=== PATIENT | female | born 1965 | race Caucasian/White ===

== ENCOUNTER → 2022-06-16 11:08 | Outpatient (BNVA) | payer SELFPAY | PROVIDERS: Visit Provider Nurse Practitioner | DX: R39.9 Unspecified symptoms and signs involving the genitourinary system (principal); N39.0 Urinary tract infection, site not specified | CPT/HCPCS: 81000 ==

== ENCOUNTER → 2022-08-02 09:09 | Outpatient (BNVA) | payer SELFPAY | PROVIDERS: Visit Provider Emergency Medicine | DX: R30.0 Dysuria (principal); K80.50 Calculus of bile duct without cholangitis or cholecystitis without obstruction; R31.9 Hematuria, unspecified | CPT/HCPCS: 80053; 81000; 85025; 87077; 87086; 87184 ==

== ENCOUNTER 2022-08-03 12:26 | Emergency (ER) | payer SELFPAY ==
[2022-08-03] VITALS (27 sets, daily range): BP systolic 122–150; BP diastolic 72–109; PULSE 79–97; RESP 16–18; TEMP 36.9–37.2; O2SAT 92–97
--- NOTE | 2022-08-03 13:14 | US_ITS ---
WS: [id number] Gallbladder and right upper quadrant ultrasound, 08/03/2022 Clinical Data: RUQ pain with nausea Comparison: None. Findings: The gallbladder shows a stone in the neck. The wall measures 0.4 cm with no pericholecystic fluid. A thickened wall could indicate chronic and/or acute cholecystitis. The common bile duct is 0.4 cm and there are no intrahepatic ductal abnormalities. Liver shows no cysts, masses or dilated intrahepatic ducts. The liver is enlarged, measuring 23.13 cm , with increased density and fatty infiltration. The pancreas is obscured by overlying bowel gas but no cyst, pseudocyst, or evidence of pancreatitis is noted. Right kidney measures 11.9 cm and no cyst, masses or hydronephrosis can be seen. The aorta and inferior vena cava show no vascular abnormalities. US/US gall bladder [id number] Impression: 1. Gallstone at the neck of the gallbladder. 2. Increased gallbladder wall which can be seen with chronic and acute cholecy stitis. 3. Liver enlargement with fatty infiltration and increased density.
[2022-08-03] MEDS: sodium chloride 0.9% 1,000 ML 999 ML IV (13:33)
[2022-08-03] MEDS: ondansetron 2 mg/ML SDV 2 mL 4 MG IVP (13:33)
[2022-08-03] MEDS: morphine 4 mg/mL SDV 1 mL IVP ×2 (13:33→20:48)
[2022-08-03 13:34] LABS: Glucose Point of Care 418 mg/dL (70-110)
--- NOTE | 2022-08-03 13:36 | ED_ITS ---
Documented by User: PRAKASH Carter 08/03/22 16:41 HPI - Recheck/Abnormal Lab/Rx General: Chief Complaint: Recheck/Abnormal Lab/Rx Stated Complaint: Gabbie sent for abnormal labs Time Seen by Provider: 08/03/22 12:34 History of Present Illness: Patient is a 57-year-old female who comes to the ED with abdominal pain. Patient was sent here by Dr. Cartwright due to elevated blood sugars and elevated total bilirubin. Symptoms started approximately 4 days ago. Her abdominal pain is located in her right upper quadrant of her abdomen and it radiates to the middle of her back. Pain currently is a 5 out of 10 but has occasions where it spikes up higher. She has nausea and a couple episodes of emesis over the past couple days. Patient has not eaten anything for the past couple days because she is worried it will worsen her symptoms. Patient denies any history of diabetes. She does have a past medical history of alpha gal. Review of Systems Const: Denies: fever(s), chills or fatigue Eyes: Denies: change in vision or eye discomfort ENMT: Denies: throat pain, odynophagia, nasal discharge or nasal congestion Card: Denies: chest pain, palpitations, edema, swelling of feet/ankles, dyspnea on exertion or orthopnea Resp: Denies: dyspnea, productive cough or non-productive cough GI: Reports: abdominal pain, nausea and vomiting; Denies: diarrhea, constipation or hematochezia : Denies: flank pain, dysuria or hematuria Musc: Denies: neck pain, back pain or extremity swelling Skin/Breast: Denies: rash or new lesions Neuro: Denies: headache(s), numbness in extremities or weakness in extremities PFSH ED PFSH: Medical History Allergy to alpha-gal No pertinent family history Surgical History No pertinent past surgical history Social History Smoking and tobacco status: current every day smoker Female Reproductive History: Spontaneous abortions: No Physical Exam Const: COMMON NORMALS: patient oriented x3 and alert GENERAL APPEARANCE: cooperative NUTRITIONAL APPEARANCE: obese HENMT: COMMON NORMALS: normocephalic HEAD & SCALP: normocephalic MOUTH: Normal oral and palatal mucosa present THROAT: posterior oropharynx normal and uvula midline Neck/C-Spine: COMMON NORMALS: supple GENERAL: Yes normal visual inspection Resp: COMMON NORMALS: normal respiratory effort, No retractions, No use of accessory muscles and clear to auscultation bilaterally AUSCULTATION: clear to auscultation bilaterally Cardio: COMMON NORMALS: regular rate, regular rhythm, S1 normal heart sound present, S2 normal heart sound present, No gallops present (Cardio), No clicks present (Cardio), No murmurs present (Cardio) and Peripheral pulses 2+ throughout RATE: regular rate RHYTHM: regular rhythm HEART SOUNDS: S1 normal heart sound present and S2 normal heart sound present PERIPHERAL PULSES: Peripheral pulses 2+ throughout GI: COMMON NORMALS: Normal to inspection, nondistended, normoactive bowel sounds present, Soft to palpation and no masses PALPATION: Yes Soft to palpation and Yes Tenderness to palpation present (GI) Details: RUQ (Positive Xavier sign) : COMMON NORMALS: Yes no CVA tenderness BLADDER/KIDNEY EXAM: Yes no CVA tenderness Back/Pelvis: COMMON NORMALS: no CVA tenderness Extremity: COMMON NORMALS: normal to inspection Neuro: COMMON NORMALS: patient oriented x3 SENSORIUM/ORIENTATION: Yes alert GAIT: Yes Normal gait present Skin: GENERAL SKIN EXAM: dry skin Course Consultations: Consultation #1: I contacted the general surgeon fire information officer and told about patient case. He recommended doing an MRCP of patient and if it comes back normal he would admit and take her to surgery, but if MRCP is abnormal we will have to transfer her. Time: 16:27 Vital Signs: Vital signs: Vital Signs Temperature 98.9 F 08/03/22 21:54 Pulse Rate 85 08/03/22 21:54 Respiratory Rate 18 08/03/22 21:54 Blood Pressure 140/94 08/03/22 21:54 Pulse Oximetry 94 08/03/22 21:54 Oxygen Delivery Me thod 08/03/22 13:55 MDM - Recheck/Abnormal Lab/Rx Medical Decision Making Patient is a 57-year-old female comes to the ED with right upper quadrant abdominal pain nausea and vomiting. She was seen by Dr. Cartwright yesterday for same complaint on August 02 and labs were performed and she had an elevated T bili and elevated blood sugars. She was instructed to come here to the ED for further evaluation. Symptoms started approximately 4 days ago and she has nausea and vomiting as well. Vitals are stable. Patient has a right upper quadrant abdominal tenderness with positive Xavier sign. Rest of exam is benign. White blood cell count of 22.1, T bili of 2 and her initial [id number] glucose test was 418. The rest of her labs were unremarkable. Ultrasound the gallbladder showed gallstone at the neck of the gallbladder with increased gallbladder wall indicating possible acute cholecystitis. I contacted the general surgeon fire information officer and told about patient case. He recommended doing an MRCP of patient. If MRCP came back normal he would admit patient and take her to surgery likely tomorrow. If MRCP came back abnormal she would need to be transferred. I talked with Dr. Culver about patient and he will be taking over patient care. MRCP is ordered and patient plan pending MRCP results Lab Data I reviewed the patient's lab results. : 08/03/22 14:35 08/03/22 14:35 Radiology Impressions Gallbladder Ultrasound 08/03/22 13:14 Impression: 1. Gallstone at the neck of the gallbladder. 2. Increased gallbladder wall which can be seen with chronic and acute cholecystitis. 3. Liver enlargement with fatty infiltration and increased density. Cholangiopancreatography MRI 08/03/22 16:26 IMPRESSION: 1. Cholelithiasis with gallbladder wall thickening which may reflect acute or chronic cholecystitis. There is a questionable stone in the distal common bile duct measuring 4 mm, although this may simply reflect findings related to coarse calcifications within the pancreatic head as described in the impression point below. There is no dilation of the common bile duct upstream to this region and therefore does not appear to be causing biliary obstruction. 2. There is a focal area of susceptibility artifact and T2 hypointense signal projecting in the region of the pancreatic head adjacent to the common bile duct measuring 1.7 cm in size. Imaging appearance is nonspecific on MRI and may reflect a coarse calcification. CT abdomen should provide further clarification of this region. 3. Hepatic steatosis. Laboratory Results WBC 22.1 10^3/uL (4.0-10.0) H 08/03/22 14:35 RBC 5.16 10^6/uL (4.1-5.3) 08/03/22 14:35 Hgb 15.4 g/dL (11.5-15.3) H 08/03/22 14:35 Hct 47.8 % (37.0-47.0) H 08/03/22 14:35 MCV 92.6 fl (81-99) 08/03/22 14:35 MCH 29.8 pg (28.0-34.0) 08/03/22 14:35 MCHC 32.2 g/dL (30.0-36.0) 08/03/22 14:35 RDW 14.7 % (12.1-15.1) 08/03/22 14:35 Plt Count 251 10^3/cmm (130-400) 08/03/22 14:35 MPV 9.6 fL (7.4-10.4) 08/03/22 14:35 Neut % (Auto) 74.8 % 08/03/22 14:35 Lymph % (Auto) 14.8 % 08/03/22 14:35 Stutsman % (Auto) 6.2 % 08/03/22 14:35 Eos % (Auto) 2.1 % 08/03/22 14:35 Baso % (Auto) 0.6 % 08/03/22 14:35 Neut # (Auto) 16.52 10^3/uL (1.8-7.7) H 08/03/22 14:35 Lymph # (Auto) 3.3 10^3/uL (0.8-4.8) 08/03/22 14:35 [place]uts[place] # (Auto) 1.4 10^3/uL (0.2-0.9) H 08/03/22 14:35 Eos # (Auto) 0.5 10^3/uL (0.0-0.8) 08/03/22 14:35 Baso # (Auto) 0.1 10^3/uL (0.0-0.1) 08/03/22 14:35 Nucleated RBC % (auto) 0 % 08/03/22 14:35 Nucleated RBCs # 0.0 /100WBC 08/03/22 14:35 Sodium 129 mmol/L (136-145) L 08/03/22 14:35 Potassium 4.1 mmol/L (3.5-5.1) 08/03/22 14:35 Chloride 92 mmol/L (98-107) L 08/03/22 14:35 Carbon Dioxide 26 mmol/L (22-29) 08/03/22 14:35 Anion Gap 15.1 (5-19) 08/03/22 14:35 BUN 10 mg/dL (6-20) 08/03/22 14:35 Creatinine 0.5 mg/dL (0.5-0.9) 08/03/22 14:35 GFR Calculation 127.6 mL/min (90-130) 08/03/22 14:35 Glucose 343 mg/dL (65-115) H 08/03/22 14:35 POC Glucose 346 mg/dL (70-110) H 08/03/22 15:42 Calculated Osmolality 281 mOsm/kg (285-295) L 08/03/22 14:35 Lactate 1.9 mmol/L (0.5-2.2) 08/03/22 14:35 Calcium 9.4 mg/dL (8.5-10.5) 08/03/22 14:35 Total Bilirubin 2.0 mg/dL (0.15-1.2) H 08/03/22 14:35 AST 14 U/L (0-32) 08/03/22 14:35 ALT 16 U/L (0-33) 08/03/22 14:35 Alkaline Phosphatase 118 U/L (35-105) H 08/03/22 14:35 Total Protein 7.7 g/dL (6.6-8.7) 08/03/22 14:35 Albumin 4.0 g/dL (3.5-5.2) 08/03/22 14:35 Globulin 3.7 g/dL (1.3-4.6) 08/03/22 14:35 Lipase 29 U/L (13-60) 08/03/22 14:35 Urine Color Red (Yellow) 08/03/22 17:30 Urine Appearance Bloody (CLEAR) A 08/03/22 17:30 Urine pH 5 (5-7) 08/03/22 17:30 Ur Specific Furlong 1.020 (1.005-1.030) 08/03/22 17:30 Urine Protein 1+ (Negative) H 08/03/22 17:30 Urine Glucose (UA) 2+ (Normal) H 08/03/22 17:30 Urine Ketones 1+ (Negative) H 08/03/22 17:30 Urine Blood 3+ (Negative) H 08/03/22 17:30 Urine Nitrate Positive (Negative) H 08/03/22 17:30 Urine Bilirubin 1+ (Negative) H 08/03/22 17:30 Urine Urobilinogen 4 mg/dL (Negative) H 08/03/22 17:30 Ur Leukocyte Esterase 1+ (Negative) H 08/03/22 17:30 Urine RBC 15-25 /hpf (0-2) H 08/03/22 17:30 Urine WBC 0-4 /hpf (0-5) H 08/03/22 17:30 Ur Squamous Epith Cells 0-4 /hpf (0-5) H 08/03/22 17:30 Amorphous Sediment Not Reportable 08/03/22 17:30 Urine Bacteria 4+ /hpf (NONE) H 08/03/22 17:30 Serum Ketones Negative (Negative) 08/03/22 14:35 Discharge Plan Discharge Patient Disposition: Xfer Short-Term Hosp Clinical Impression: Acute cholecystitis, Choledocholithiasis Condition: Stable Sign Out Sign Out Data: Patient Sign Out occurred on 08/03/22 at 16:41. Patient's care was discussed, and care was transferred from to Uli Culver MD. Coding Level of Care Code ED Core Laying Machine Operator for Chg Fwd Exam Comprehensive Documented by User: Uli Culver MD 08/08/22 19:57 HPI - Recheck/Abnormal Lab/Rx General: Chief Complaint: Recheck/Abnormal Lab/Rx Stated Complaint: Gerlick sent for abnormal labs Time Seen by Provider: 08/03/22 12:34 PFSH ED PFSH: Medical History Allergy to alpha-gal No pertinent family history Surgical History No pertinent past surgical history Social History Smoking and tobacco status: current every day smoker Course Vital Signs: Vital signs: Vital Signs Temperature 98.9 F 08/03/22 21:54 Pulse Rate 85 08/03/22 21:54 Respiratory Rate 18 08/03/22 21:54 Blood Pressure 140/94 08/03/22 21:54 Pulse Oximetry 94 08/03/22 21:54 Oxygen Delivery Me thod 08/03/22 13:55 MDM - Recheck/Abnormal Lab/Rx Medical Decision Making Patient is a 57-year-old female comes to the ED with right upper quadrant abdominal pain nausea and vomiting. She was seen by Dr. Cartwright yesterday for same complaint on August 02 and labs were performed and she had an elevated T bili and elevated blood sugars. She was instructed to come here to the ED for further evaluation. Symptoms started approximately 4 days ago and she has nausea and vomiting as well. Vitals are stable. Patient has a right upper quadrant abdominal tenderness with positive Xavier sign. Rest of exam is benign. White blood cell count of 22.1, T bili of 2 and her initial [id number] glucose test was 418. The rest of her labs were unremarkable. Ultrasound the gallbladder showed gallstone at the neck of the gallbladder with increased gallbladder wall indicating possible acute cholecystitis. I contacted the general surgeon fire information officer and told about patient case. He recommended doing an MRCP of patient. If MRCP came back normal he would admit patient and take her to surgery likely tomorrow. If MRCP came back abnormal she would need to be transferred. I talked with Dr. Culver about patient and he will be taking over patient care. MRCP is ordered and patient plan pending MRCP results I discussed this case with Sander RANDALL. I reviewed documentation. I have reviewed imaging and laboratory studies. I personally saw and evaluated the patient and reperformed godfrey portions of E/M. Given MRCP findings patient reports transferred for ERCP at our facility. Discussed this with the patient and patient agreeable to transfer. Accepting facility found the patient transferred to a satisfactory condition. Uli Culver MD Emergency Medicine Lab Data : 08/03/22 14:35 08/03/22 14:35 Radiology Impressions Gallbladder Ultrasound 08/03/22 13:14 Impression: 1. Gallstone at the neck of the gallbladder. 2. Increased gallbladder wall which can be seen with chronic and acute cholecystitis. 3. Liver enlargement with fatty infiltration and increased density. Cholangiopancreatography MRI 08/03/22 16:26 IMPRESSION: 1. Cholelithiasis with gallbladder wall thickening which may reflect acute or chronic cholecystitis. There is a questionable stone in the distal common bile duct measuring 4 mm, although this may simply reflect findings related to coarse calcifications within the pancreatic head as described in the impression point below. There is no dilation of the common bile duct upstream to this region and therefore does not appear to be causing biliary obstruction. 2. There is a focal area of susceptibility artifact and T2 hypointense signal projecting in the region of the pancreatic head adjacent to the common bile duct measuring 1.7 cm in size. Imaging appearance is nonspecific on MRI and may reflect a coarse calcification. CT abdomen should provide further clarification of this region. 3. Hepatic steatosis. Laboratory Results WBC 22.1 10^3/uL (4.0-10.0) H 08/03/22 14:35 RBC 5.16 10^6/uL (4.1-5.3) 08/03/22 14:35 Hgb 15.4 g/dL (11.5-15.3) H 08/03/22 14:35 Hct 47.8 % (37.0-47.0) H 08/03/22 14:35 MCV 92.6 fl (81-99) 08/03/22 14:35 MCH 29.8 pg (28.0-34.0) 08/03/22 14:35 MCHC 32.2 g/dL (30.0-36.0) 08/03/22 14:35 RDW 14.7 % (12.1-15.1) 08/03/22 14:35 Plt Count 251 10^3/cmm (130-400) 08/03/22 14:35 MPV 9.6 fL (7.4-10.4) 08/03/22 14:35 Neut % (Auto) 74.8 % 08/03/22 14:35 Lymph % (Auto) 14.8 % 08/03/22 14:35 Stutsman % (Auto) 6.2 % 08/03/22 14:35 Eos % (Auto) 2.1 % 08/03/22 14:35 Baso % (Auto) 0.6 % 08/03/22 14:35 Neut # (Auto) 16.52 10^3/uL (1.8-7.7) H 08/03/22 14:35 Lymph # (Auto) 3.3 10^3/uL (0.8-4.8) 08/03/22 14:35 [place]utsman # (Auto) 1.4 10^3/uL (0.2-0.9) H 08/03/22 14:35 Eos # (Auto) 0.5 10^3/uL (0.0-0.8) 08/03/22 14:35 Baso # (Auto) 0.1 10^3/uL (0.0-0.1) 08/03/22 14:35 Nucleated RBC % (auto) 0 % 08/03/22 14:35 Nucleated RBCs # 0.0 /100WBC 08/03/22 14:35 Sodium 129 mmol/L (136-145) L 08/03/22 14:35 Potassium 4.1 mmol/L (3.5-5.1) 08/03/22 14:35 Chloride 92 mmol/L (98-107) L 08/03/22 14:35 Carbon Dioxide 26 mmol/L (22-29) 08/03/22 14:35 Anion Gap 15.1 (5-19) 08/03/22 14:35 BUN 10 mg/dL (6-20) 08/03/22 14:35 Creatinine 0.5 mg/dL (0.5-0.9) 08/03/22 14:35 GFR Calculation 127.6 mL/min (90-130) 08/03/22 14:35 Glucose 343 mg/dL (65-115) H 08/03/22 14:35 POC Glucose 346 mg/dL (70-110) H 08/03/22 15:42 Calculated Osmolality 281 mOsm/kg (285-295) L 08/03/22 14:35 Lactate 1.9 mmol/L (0.5-2.2) 08/03/22 14:35 Calcium 9.4 mg/dL (8.5-10.5) 08/03/22 14:35 Total Bilirubin 2.0 mg/dL (0.15-1.2) H 08/03/22 14:35 AST 14 U/L (0-32) 08/03/22 14:35 ALT 16 U/L (0-33) 08/03/22 14:35 Alkaline Phosphatase 118 U/L (35-105) H 08/03/22 14:35 Total Protein 7.7 g/dL (6.6-8.7) 08/03/22 14:35 Albumin 4.0 g/dL (3.5-5.2) 08/03/22 14:35 Globulin 3.7 g/dL (1.3-4.6) 08/03/22 14:35 Lipase 29 U/L (13-60) 08/03/22 14:35 Urine Color Red (Yellow) 08/03/22 17:30 Urine Appearance Bloody (CLEAR) A 08/03/22 17:30 Urine pH 5 (5-7) 08/03/22 17:30 Ur Specific Furlong 1.020 (1.005-1.030) 08/03/22 17:30 Urine Protein 1+ (Negative) H 08/03/22 17:30 Urine Glucose (UA) 2+ (Normal) H 08/03/22 17:30 Urine Ketones 1+ (Negative) H 08/03/22 17:30 Urine Blood 3+ (Negative) H 08/03/22 17:30 Urine Nitrate Positive (Negative) H 08/03/22 17:30 Urine Bilirubin 1+ (Negative) H 08/03/22 17:30 Urine Urobilinogen 4 mg/dL (Negative) H 08/03/22 17:30 Ur Leukocyte Esterase 1+ (Negative) H 08/03/22 17:30 Urine RBC 15-25 /hpf (0-2) H 08/03/22 17:30 Urine WBC 0-4 /hpf (0-5) H 08/03/22 17:30 Ur Squamous Epith Cells 0-4 /hpf (0-5) H 08/03/22 17:30 Amorphous Sediment Not Reportable 08/03/22 17:30 Urine Bacteria 4+ /hpf (NONE) H 08/03/22 17:30 Serum Ketones Negative (Negative) 08/03/22 14:35 Discharge Plan Discharge Patient Disposition: Xfer Short-Term Hosp Clinical Impression: Acute cholecystitis, Choledocholithiasis Condition: Stable Sign Out Sign Out Data: Patient Sign Out occurred on 08/03/22 at 16:41. Patient's care was discussed, and care was transferred from to Uli Culver MD. Coding Level of Care Code ED Core Laying Machine Operator for g Fwd Exam Comprehensive
[2022-08-03 14:41] LABS: Basophils # 0.1 10^3/uL (0.0-0.1); Basophils % 0.6 %; Eosinophils # 0.5 10^3/uL (0.0-0.8); Eosinophils % 2.1 %; Hematocrit 47.8 % (37.0-47.0); Hemoglobin 15.4 g/dL (11.5-15.3); Lymphocytes # 3.3 10^3/uL (0.8-4.8); Lymphocytes % 14.8 %; Mean Corpuscular HGB Conc 32.2 g/dL (30.0-36.0); Mean Corpuscular Hemoglobin 29.8 pg (28.0-34.0); Mean Corpuscular Volume 92.6 fl (81-99); Mean Platelet Volume 9.6 fL (7.4-10.4); Monocytes # 1.4 10^3/uL (0.2-0.9); Monocytes % 6.2 %; Neutrophils # 16.52 10^3/uL (1.8-7.7); Neutrophils % 74.8 %; Nucleated Red Blood Cells % 0 %; Platelet Count 251 10^3/cmm (130-400); Red Blood Count 5.16 10^6/uL (4.1-5.3); Red Cell Distribution Width 14.7 % (12.1-15.1); White Blood Count 22.1 10^3/uL (4.0-10.0)
[2022-08-03 14:57] LABS: Anion Gap 15.1 (5-19); Blood Urea Nitrogen 10 mg/dL (6-20); Calcium 9.4 mg/dL (8.5-10.5); Carbon Dioxide 26 mmol/L (22-29); Chloride 92 mmol/L (98-107); Glomerular Filtration Rate 127.6 mL/min (90-130); Lipase 29 U/L (13-60); Potassium 4.1 mmol/L (3.5-5.1); Sodium 129 mmol/L (136-145); Total Protein 7.7 g/dL (6.6-8.7)
[2022-08-03 15:00] LABS: Ketone (Acetest) Serum Negative (Negative)
[2022-08-03 15:28] LABS: Alanine Aminotransferase 16 U/L (0-33); Alkaline Phosphatase 118 U/L (35-105); Aspartate Amino Transferase 14 U/L (0-32); Globulin 3.7 g/dL (1.3-4.6); Glucose 343 mg/dL (65-115); Osmolality Calculated 281 mOsm/kg (285-295)
[2022-08-03 15:45] LABS: Glucose Point of Care 346 mg/dL (70-110)
[2022-08-03] MEDS: insulin regular-human 100 units/1 mL 6 UNIT IVP (16:06)
--- NOTE | 2022-08-03 16:26 | MRR_ITS ---
PROCEDURE INFORMATION: Exam: MR Abdomen Without Contrast Exam date and time: 08/03/2022 4:57 PM Age: 57 years old Clinical indication: Abdominal pain; Acute; Patient HX: RT flank pain nausea vomiting since Tuesday; Additional info: Ruq abdominal pain with elevated t. Moody TECHNIQUE: Imaging protocol: Magnetic resonance imaging of the abdomen without contrast. COMPARISON: US gall bladder [id number] 08/03/2022 1:34 PM FINDINGS: Liver: Diffuse hepatic steatosis. No mass. Gallbladder and bile ducts: 2.5 cm gallstone noted at the gallbladder neck. Gallbladder wall thickening noted. No dilation of the common bile duct. There is a small focal areas susceptibility artifact measuring 4 mm in size in the region of the common bile duct just proximal to the ampulla of Vater series 701, image 22. Pancreas: There is a focal area of susceptibility artifact and markedly decreased T2 hypointense signal projecting at the pancreatic head adjacent to the common bile duct measuring 1.7 cm in size. Imaging appearance is nonspecific on MRI and may reflect a coarse calcification. No ductal dilation. Spleen: Unremarkable. No splenomegaly. Adrenal glands: Unremarkable. No mass. Kidneys and ureters: Unremarkable. No solid mass. No hydronephrosis. Stomach and bowel: Visualized stomach and intestines are unremarkable. Intraperitoneal space: No free fluid. Vasculature: No abdominal aortic aneurysm. Bones/joints: Unremarkable. Soft tissues: Unremarkable. MR/MR MRCP [id number] IMPRESSION: 1. Cholelithiasis with gallbladder wall thickening which may reflect acute or chronic cholecystitis. There is a questionable stone in the distal common bile duct measuring 4 mm, although this may simply reflect findings related to coarse calcifications within the pancreatic head as described in the impression point below. There is no dilation of the common bile duct upstream to this region and therefore does not appear to be causing biliary obstruction. 2. There is a focal area of susceptibility artifact and T2 hypointense signal projecting in the region of the pancreatic head adjacent to the common bile duct measuring 1.7 cm in size. Imaging appearance is nonspecific on MRI and may reflect a coarse calcification. CT abdomen should provide further clarification of this region. 3. Hepatic steatosis.
[2022-08-03 18:22] LABS: Lactate (Lactic Acid level) 1.9 mmol/L (0.5-2.2)
[2022-08-03] MEDS: piperacillin-tazobactam 4.5 GM in sodium chloride 0.9% (plus) 50 ML IV (18:34)
[2022-08-03 18:54] LABS: Urine Appearance Bloody (CLEAR); Urine Color Red (Yellow); pH Urine 5 (5-7)
[2022-08-03 18:55] LABS: Add Urine Microscopic? YES; Bilirubin Urine 1+ (Negative); Blood Urine 3+ (Negative); Glucose Urine UA 2+ (Normal); Ketones Urine 1+ (Negative); Leukocyte Esterase Urine 1+ (Negative); Nitrate Urine Positive (Negative); Protein Urine 1+ (Negative); Urobilinogen Urine 4 mg/dL (Negative)
[2022-08-03 18:56] LABS: Add Urine Culture? Yes; Bacteria Urine 4+ /hpf; RBC Urine 15-25 /hpf (0-2); Squamous Epithelial Cell Urine 0-4 /hpf (0-5); WBC Urine 0-4 /hpf (0-5)
== END 2022-08-03 21:50 | disposition short-term general hospital (02) ==
PROVIDERS: Physician Assistant; Emergency Provider Emergency Medicine
DX: K80.42 Calculus of bile duct with acute cholecystitis without obstruction (principal); R79.89 Other specified abnormal findings of blood chemistry; R73.9 Hyperglycemia, unspecified; R11.2 Nausea with vomiting, unspecified
CPT/HCPCS: 36415; 36416; 74181; 76705; 80053; 81001; 82009; 82962; 83605; 83690; 85025; 87086; 96365; 96375; 99285; J1815; J2270; J2405; J2543; J7030

== ENCOUNTER 2022-08-13 19:31 | Emergency (ER) | payer SELFPAY ==
[2022-08-13 19:50] VITALS: BP 150/82; PULSE 99; RESP 22; TEMP 37; O2SAT 97; BMI 49.9
[2022-08-13 22:38] LABS: Hematocrit 43.7 % (37.0-47.0); Hemoglobin 13.8 g/dL (11.5-15.3); Mean Corpuscular HGB Conc 31.6 g/dL (30.0-36.0); Mean Corpuscular Hemoglobin 29.2 pg (28.0-34.0); Mean Corpuscular Volume 92.6 fl (81-99); Mean Platelet Volume 9.9 fL (7.4-10.4); Platelet Count 558 10^3/cmm (130-400); Red Blood Count 4.72 10^6/uL (4.1-5.3); Red Cell Distribution Width 14.8 % (12.1-15.1); White Blood Count 28.9 10^3/uL (4.0-10.0)
[2022-08-13 23:09] LABS: Alanine Aminotransferase 13 U/L (0-33); Albumin Level 2.5 g/dL (3.5-5.2); Alkaline Phosphatase 324 U/L (35-105); Anion Gap 17.9 (5-19); Aspartate Amino Transferase 16 U/L (0-32); Blood Urea Nitrogen 15 mg/dL (6-20); Calcium 9.3 mg/dL (8.5-10.5); Carbon Dioxide 23 mmol/L (22-29); Chloride 95 mmol/L (98-107); Globulin 4.4 g/dL (1.3-4.6); Glomerular Filtration Rate 230.1 mL/min (90-130); Glucose 178 mg/dL (65-115); NT Pro B Type Natriuretic Pept 147 pg/mL (0-125); Osmolality Calculated 277 mOsm/kg (285-295); Potassium 4.9 mmol/L (3.5-5.1); Sodium 131 mmol/L (136-145); Total Bilirubin 1.1 mg/dL (0.15-1.2); Total Protein 6.9 g/dL (6.6-8.7)
[2022-08-13 23:44] LABS: Absolute Neutrophil 26.3 10^3/cmm (1.4-6.5); Absolute Segmented Neutrophil 23.1 10/cmm (1.6-7.1); Band Neutrophils Absolute 3.2 10^3/cmm (0.0-1.2); Eosinophils 0 %; Lymphocytes 2 %; Lymphocytes Absolute 0.6 10^3/cmm (1.2-3.4); Monocytes Absolute 0.9 10^3/cmm (0.1-0.6); Platelet Estimate Increased (Normal); Segmented Neutrophils 80 %; Total Cells Counted 100 (0-100)
[2022-08-13 23:45] LABS: Toxic Granulation 1+; Toxic Vacuolation 1+
--- NOTE | 2022-08-14 00:14 | CTR_ITS ---
PROCEDURE INFORMATION: Exam: CT Abdomen And Pelvis Without Contrast Exam date and time: 08/14/2022 1:53 AM Age: 57 years old Clinical indication: Abdominal pain; Generalized; Prior surgery; Surgery date: <1 month; Surgery type: Severe abd pain since cholecystectomy 9 days ago; Additional info: Generalized abdominal pain, 9 days post cholecystectomy TECHNIQUE: Imaging protocol: Computed tomography of the abdomen and pelvis without contrast. Radiation optimization: All CT scans at this facility use at least one of these dose optimization techniques: automated exposure control; mA and/or kV adjustment per patient size (includes targeted exams where dose is matched to clinical indication); or iterative reconstruction. COMPARISON: MR MRCP [id number] 08/03/2022 4:57 PM RADIATION DOSE METRICS: Total DLP (mGy-cm): 1216.06 FINDINGS: Liver: Circumscribed low-attenuation simple appearing fluid collection medial to the caudate lobe of the liver measures 7.1 cm x 4.6 cm new from prior. Gallbladder and bile ducts: Cholecystectomy. Negative for biliary system dilation. Circumscribed fluid collection in the gallbladder fossa with transaxial dimensions 6.5 cm x 5.1 cm. Pancreas: Unremarkable pancreas. Spleen: Normal. No splenomegaly. Adrenal glands: Symmetric adrenal glands. Kidneys and ureters: Large stone in the left renal pelvis. Negative for hydroureteronephrosis. Stomach and bowel: Plastic stent in the mid through distal common bile duct extending into the duodenum. Multiple circumscribed simple appearing perigastric fluid collections causing some mass effect on the stomach. Negative for bowel obstruction. Negative for bowel perforation. Appendix: No evidence of appendicitis. Intraperitoneal space: Small subhepatic fluid collection in the proximal right pericolic gutter area. Multiple circumscribed loculated appearing simple fluid collections in the left upper quadrant of the abdomen. Multiple individual collections are seen. Largest collection lateral to the spleen extending anterior to posterior measuring 16.7 cm x 4.4 cm. Diffuse edema throughout abdominal mesentery. Circumscribed simple appearing fluid collections along the anterior aspect of the intraperitoneal cavity. Negative for pneumoperitoneum. Vasculature: Diffuse abdominal aorta atherosclerosis without aneurysm. Lymph nodes: Unremarkable. No enlarged lymph nodes. Urinary bladder: Bladder is decompressed. Reproductive: Unremarkable as visualized. Bones/joints: Grade 2 L5-S1 spondylolisthesis. L5 pars defects. No fractures. Soft tissues: Mild body wall anasarca. CT/CT abdomen pelvis wo con [id number] IMPRESSION: Numerous loculated well-circumscribed postoperative fluid collections throughout the abdomen with predominantly simple fluid features which are nonspecific. These could represent multiple bilomas.
--- NOTE | 2022-08-14 00:16 | ED_ITS ---
Documented by User: PRAKASH Carter 08/14/22 14:56 HPI - Abdominal Pain General: Chief Complaint: Abdominal Pain Stated Complaint: SOB, alot of pain Time Seen by Provider: 08/13/22 23:20 History of Present Illness: Patient is a 57-year-old female comes to the ED with abdominal pain. Patient was seen here in the ED back on August 03 and was transferred to another hospital for acute cholecystitis and Choledocholithiasis. Patient had a cholecystectomy procedure performed on August 05. She was discharged from the hospital and has continued to have abdominal pain and has not been improving since surgery. She currently rates her abdominal pain a 7 out of 10. Pain is generalized throughout the abdomen. Pain worsens with any movement or if she lays flat. She feels bloated and has decreased appetite. Denies any episodes of emesis. When she was discharged home from the hospital she was supposed to be on an antibiotic but due to having alpha gal the antibiotic she was given she was unable to take. She has not been taking any antibiotics since surgery. Associated Symptoms: Reports nausea; Denies chills, constipation, diarrhea, dysuria, fever(s), hematochezia, hematuria and vomiting Review of Systems Const: Reports: change in appetite (Decreased appetite since surgery) and fatigue; Denies: fever(s) or chills Eyes: Denies: change in vision or eye discomfort ENMT: Denies: throat pain, odynophagia, nasal discharge or nasal congestion Card: Denies: chest pain, palpitations, edema, swelling of feet/ankles, dyspnea on exertion or orthopnea Resp: Denies: dyspnea, productive cough or non-productive cough GI: Reports: abdominal pain and nausea; Denies: vomiting, diarrhea, constipation or hematochezia : Denies: flank pain, dysuria or hematuria Musc: Denies: neck pain, back pain or extremity swelling Skin/Breast: Denies: rash or new lesions Neuro: Denies: headache(s), numbness in extremities or weakness in extremities PFS ED PFSH: Medical History Allergy to alpha-gal No pertinent family history Surgical History No pertinent past surgical history Social History Smoking and tobacco status: current every day smoker Female Reproductive History: Spontaneous abortions: No Physical Exam Const: COMMON NORMALS: patient oriented x3 and alert GENERAL APPEARANCE: cooperative OTHER: Patient appears to be uncomfortable and in some pain. HENMT: COMMON NORMALS: normocephalic HEAD & SCALP: normocephalic MOUTH: Normal oral and palatal mucosa present THROAT: posterior oropharynx normal and uvula midline Neck/C-Spine: COMMON NORMALS: supple GENERAL: Yes normal visual inspection Resp: COMMON NORMALS: normal respiratory effort, No retractions, No use of accessory muscles and clear to auscultation bilaterally AUSCULTATION: clear to auscultation bilaterally Cardio: COMMON NORMALS: regular rate, regular rhythm, S1 normal heart sound present, S2 normal heart sound present, No gallops present (Cardio), No clicks present (Cardio), No murmurs present (Cardio) and Peripheral pulses 2+ throughout RATE: regular rate RHYTHM: regular rhythm HEART SOUNDS: S1 normal heart sound present and S2 normal heart sound present PERIPHERAL PULSES: Peripheral pulses 2+ throughout GI: COMMON NORMALS: Normal to inspection, nondistended, normoactive bowel sounds present, Soft to palpation and no masses INSPECTION: Yes central obesity PALPATION: Yes Soft to palpation and Yes Tenderness to palpation present (GI) (Tenderness with light palpation throughout abdomen) : COMMON NORMALS: Yes no CVA tenderness BLADDER/KIDNEY EXAM: Yes no CVA tenderness Back/Pelvis: COMMON NORMALS: no CVA tenderness Extremity: COMMON NORMALS: normal to inspection Neuro: COMMON NORMALS: patient oriented x3 SENSORIUM/ORIENTATION: Yes alert GAIT: Yes Normal gait present Skin: GENERAL SKIN EXAM: dry skin Course Vital Signs: Vital signs: Vital Signs Temperature 98.2 F 08/14/22 05:46 Pulse Rate 102 H 08/14/22 05:46 Respiratory Rate 22 H 08/14/22 05:46 Blood Pressure 146/104 08/14/22 05:46 Pulse Oximetry 96 08/14/22 05:46 Oxygen Delivery Me thod 08/13/22 19:50 MDM - Abdominal Pain Medical Decision Making Patient is a 57-year-old female comes to the ED with abdominal pain. Patient was seen here in the ED back on August 03 and was transferred to [facility] for acute cholecystitis and Choledocholithiasis. Patient had a cholecystectomy procedure performed on August 05. Since discharge from the hospital she has been having worsening abdominal pain. Vitals are stable and patient does appear to be in some pain. She has generalized tenderness throughout her abdomen to light palpation. White blood cell count 28.9 lactic acid 1.3, alk phos 324 and the rest of the labs are unremarkable. CT of the abdomen showed numerous loculated well-circumscribed postoperative fluid collect ions throughout the abdomen, which could represent multiple bilomas. We contacted the [facility] and the surgeon who performed previous surgery. Patient will be transferred to [facility] for readmission. Patient was given IV Zosyn here in the ED before transfer. Lab Data I reviewed the patient's lab results. 08/13/22 22:15 08/13/22 22:15 Labs/Radiology: Radiology Impressions Abdomen/Pelvis CT 08/14/22 00:14 IMPRESSION: Numerous loculated well-circumscribed postoperative fluid collections throughout the abdomen with predominantly simple fluid features which are nonspecific. These could represent multiple bilomas. Laboratory Results WBC 28.9 10^3/uL (4.0-10.0) H 08/13/22 22:15 RBC 4.72 10^6/uL (4.1-5.3) 08/13/22 22:15 Hgb 13.8 g/dL (11.5-15.3) 08/13/22 22:15 Hct 43.7 % (37.0-47.0) 08/13/22 22:15 MCV 92.6 fl (81-99) 08/13/22 22:15 MCH 29.2 pg (28.0-34.0) 08/13/22 22:15 MCHC 31.6 g/dL (30.0-36.0) 08/13/22 22:15 RDW 14.8 % (12.1-15.1) 08/13/22 22:15 Plt Count 558 10^3/cmm (130-400) H 08/13/22 22:15 MPV 9.9 fL (7.4-10.4) 08/13/22 22:15 Lymph % (Auto) Not Reportable 08/13/22 22:15 Barrow % (Auto) Not Reportable 08/13/22 22:15 Lymph # (Auto) Not Reportable 08/13/22 22:15 B[place] # (Auto) Not Reportable 08/13/22 22:15 Total Counted 100 (0-100) 08/13/22 22:15 Atypical Lymphs % 0.0 % (0-5) 08/13/22 22:15 Absolute Neutrophils 26.3 10^3/cmm (1.4-6.5) H 08/13/22 22:15 Segmented Neutrophils 80 % 08/13/22 22:15 Abs Segm Neuts (Man) 23.1 10/cmm (1.6-7.1) H 08/13/22 22:15 Band Neutrophils 11.0 % 08/13/22 22:15 Abs Band Neuts (Man) 3.2 10^3/cmm (0.0-1.2) H 08/13/22 22:15 Absolute Lymphocytes 0.6 10^3/cmm (1.2-3.4) L 08/13/22 22:15 Lymphocytes (Manual) 2 % 08/13/22 22:15 Monocytes (Manual) 3.0 % 08/13/22 22:15 Absolute Monocytes 0.9 10^3/cmm (0.1-0.6) H 08/13/22 22:15 Eosinophils (Manual) 0 % 08/13/22:15 Absolute Eosinophils 0.0 10^3/cmm (0.0-0.7) 08/13/22 22:15 Basophils (Manual) 0.0 % 08/13/22:15 Absolute Basophils 0.0 10^3/cmm (0.0-0.2) 08/13/22 22:15 Metamyelocytes 3.0 % 08/13/22 22:15 Myelocytes 1.0 % 08/13/22 22:15 Toxic Granulation 1+ H 08/13/22 22:15 Toxic Vacuolation 1+ H 08/13/22 22:15 Platelet Estimate Increased (Normal) H 08/13/22 22:15 Sodium 131 mmol/L (136-145) L 08/13/22 22:15 Potassium 4.9 mmol/L (3.5-5.1) 08/13/22 22:15 Chloride 95 mmol/L (98-107) L 08/13/22 22:15 Carbon Dioxide 23 mmol/L (22-29) 08/13/22 22:15 Anion Gap 17.9 (5-19) 08/13/22 22:15 BUN 15 mg/dL (6-20) 08/13/22 22:15 Creatinine 0.3 mg/dL (0.5-0.9) L 08/13/22 22:15 GFR Calculation 230.1 mL/min (90-130) H 08/13/22 22:15 Glucose 178 mg/dL (65-115) H 08/13/22 22:15 Calculated Osmolality 277 mOsm/kg (285-295) L 08/13/22 22:15 Lactic Acid 1.3 mmol/L (0.5-2.2) 08/13/22 22:10 Calcium 9.3 mg/dL (8.5-10.5) 08/13/22 22:15 Total Bilirubin 1.1 mg/dL (0.15-1.2) 08/13/22 22:15 AST 16 U/L (0-32) 08/13/22 22:15 ALT 13 U/L (0-33) 08/13/22 22:15 Alkaline Phosphatase 324 U/L (35-105) H 08/13/22 22:15 NT-Pro-B Natriuret Pep 147 pg/mL (0-125) H 08/13/22 22:15 Total Protein 6.9 g/dL (6.6-8.7) 08/13/22 22:15 Albumin 2.5 g/dL (3.5-5.2) L 08/13/22 22:15 Globulin 4.4 g/dL (1.3-4.6) 08/13/22 22:15 Urine Color Dark yellow (Yellow) 08/14/22 01:38 Urine Appearance Hazy (CLEAR) A 08/14/22 01:38 Urine pH 5 (5-7) 08/14/22 01:38 Ur Specific Randolph 1.020 (1.005-1.030) 08/14/22 01:38 Urine Protein 1+ (Negative) H 08/14/22 01:38 Urine Glucose (UA) Norm (Normal) 08/14/22 01:38 Urine Ketones 1+ (Negative) H 08/14/22 01:38 Urine Blood 3+ (Negative) H 08/14/22 01:38 Urine Nitrate Negative (Negative) 08/14/22 01:38 Urine Bilirubin 2+ (Negative) H 08/14/22 01:38 Urine Urobilinogen 1 mg/dL (Negative) H 08/14/22 01:38 Ur Leukocyte Esterase Negative (Negative) 08/14/22 01:38 Urine RBC 15-25 /hpf (0-2) H 08/14/22 01:38 Urine WBC None /hpf (0-5) 08/14/22 01:38 Ur Squamous Epith Cells 0-4 /hpf (0-5) H 08/14/22 01:38 Amorphous Sediment Not Reportable 08/14/22 01:38 Urine Bacteria Trace /hpf (NONE) 08/14/22 01:38 Urine Mucus 3+ /hpf 08/14/22 01:38 Discharge Plan Discharge Patient Disposition: Left Against Medical Advice Clinical Impression: Biloma following surgery, Post surgical complication Condition: Stable Prescriptions: No Action No Known Home Medications Coding Level of Care Code ED Helmet Hat Brim Cutter for Chg Fwd Exam Comprehensive Documented by User: Anibal Carlos DO 08/14/22 16:20 HPI - Abdominal Pain General: Chief Complaint: Abdominal Pain Stated Complaint: SOB, alot of pain Time Seen by Provider: 08/13/22 23:20 PFSH ED PFSH: Medical History Allergy to alpha-gal No pertinent family history Surgical History No pertinent past surgical history Social History Smoking and tobacco status: current every day smoker Course Vital Signs: Vital signs: Vital Signs Temperature 98.2 F 08/14/22 05:46 Pulse Rate 102 H 08/14/22 05:46 Respiratory Rate 22 H 08/14/22 05:46 Blood Pressure 146/104 08/14/22 05:46 Pulse Oximetry 96 08/14/22 05:46 Oxygen Delivery Me thod 08/13/22 19:50 MDM - Abdominal Pain Medical Decision Making Patient is a 57-year-old female comes to the ED with abdominal pain. Patient was seen here in the ED back on August 03 and was transferred to [facility] for acute cholecystitis and Choledocholithiasis. Patient had a cho lecystectomy procedure performed on August 05. Since discharge from the hospital she has been having worsening abdominal pain. Vitals are stable and patient does appear to be in some pain. She has generalized tenderness throughout her abdomen to light palpation. White blood cell count 28.9 lactic acid 1.3, alk phos 324 and the rest of the labs are unremarkable. CT of the abdomen showed numerous loculated well-circumscribed postoperative fluid collections throughout the abdomen, which could represent multiple bilomas. We contacted the [facility] and the surgeon who performed previous surgery. Patient will be transferred to [facility] for readmission. Patient was given IV Zosyn here in the ED before transfer. This patient was originally seen by Mr. Ousmane PA-C. I agree with his history, evaluation, and management. I spoke with the surgeon electronic prepress operator, Dr. Jones. He has graciously accepted the patient to be transferred for direct admission there. Need for EMS transfer with high risk of clinical decompensation in this patient was explained to her. She Adamantly declined EMS transport, checked out of the ER AMA and was gonig to go by POV. Report was called to the facility by nursing staff as if the patient was being transported by EMS for continuity of care, and the bed will be there waiting on the patient on her arrival. Lab Data 08/13/22 22:15 08/13/22 22:15 Labs/Radiology: Radiology Impressions Abdomen/Pelvis CT 08/14/22 00:14 IMPRESSION: Numerous loculated well-circumscribed postoperative fluid collections throughout the abdomen with predominantly simple fluid features which are nonspecific. These could represent multiple bilomas. Laboratory Results WBC 28.9 10^3/uL (4.0-10.0) H 08/13/22 22:15 RBC 4.72 10^6/uL (4.1-5.3) 08/13/22 22:15 Hgb 13.8 g/dL (11.5-15.3) 08/13/22 22:15 Hct 43.7 % (37.0-47.0) 08/13/22 22:15 MCV 92.6 fl (81-99) 08/13/22 22:15 MCH 29.2 pg (28.0-34.0) 08/13/22 22:15 MCHC 31.6 g/dL (30.0-36.0) 08/13/22 22:15 RDW 14.8 % (12.1-15.1) 08/13/22 22:15 Plt Count 558 10^3/cmm (130-400) H 08/13/22 22:15 MPV 9.9 fL (7.4-10.4) 08/13/22 22:15 Lymph % (Auto) Not Reportable 08/13/22 22:15 Barrow % (Auto) Not Reportable 08/13/22 22:15 Lymph # (Auto) Not Reportable 08/13/22 22:15 [place] # (Auto) Not Reportable 08/13/22 22:15 Total Counted 100 (0-100) 08/13/22 22:15 Atypical Lymphs % 0.0 % (0-5) 08/13/22 22:15 Absolute Neutrophils 26.3 10^3/cmm (1.4-6.5) H 08/13/22 22:15 Segmented Neutrophils 80 % 08/13/22 22:15 Abs Segm Neuts (Man) 23.1 10/cmm (1.6-7.1) H 08/13/22 22:15 Band Neutrophils 11.0 % 08/13/22 22:15 Abs Band Neuts (Man) 3.2 10^3/cmm (0.0-1.2) H 08/13/22 22:15 Absolute Lymphocytes 0.6 10^3/cmm (1.2-3.4) L 08/13/22 22:15 Lymphocytes (Manual) 2 % 08/13/22 22:15 Monocytes (Manual) 3.0 % 08/13/22 22:15 Absolute Monocytes 0.9 10^3/cmm (0.1-0.6) H 08/13/22 22:15 Eosinophils (Manual) 0 % 08/13/22 22:15 Absolute Eosinophils 0.0 10^3/cmm (0.0-0.7) 08/13/22 22:15 Basophils (Manual) 0.0 % 08/13/22 22:15 Absolute Basophils 0.0 10^3/cmm (0.0-0.2) 08/13/22 22:15 Metamyelocytes 3.0 % 08/13/22 22:15 Myelocytes 1.0 % 08/13/22 22:15 Toxic Granulation 1+ H 08/13/22 22:15 Toxic Vacuolation 1+ H 08/13/22 22:15 Platelet Estimate Increased (Normal) H 08/13/22 22:15 Sodium 131 mmol/L (136-145) L 08/13/22 22:15 Potassium 4.9 mmol/L (3.5-5.1) 08/13/22 22:15 Chloride 95 mmol/L (98-107) L 08/13/22 22:15 Carbon Dioxide 23 mmol/L (22-29) 08/13/22 22:15 Anion Gap 17.9 (5-19) 08/13/22 22:15 BUN 15 mg/dL (6-20) 08/13/22 22:15 Creatinine 0.3 mg/dL (0.5-0.9) L 08/13/22 22:15 GFR Calculation 230.1 mL/min (90-130) H 08/13/22 22:15 Glucose 178 mg/dL (65-115) H 08/13/22 22:15 Calculated Osmolality 277 mOsm/kg (285-295) L 08/13/22 22:15 Lactic Acid 1.3 mmol/L (0.5-2.2) 08/13/22 22:10 Calcium 9.3 mg/dL (8.5-10.5) 08/13/22 22:15 Total Bilirubin 1.1 mg/dL (0.15-1.2) 08/13/22 22:15 AST 16 U/L (0-32) 08/13/22 22:15 ALT 13 U/L (0-33) 08/13/22 22:15 Alkaline Phosphatase 324 U/L (35-105) H 08/13/22 22:15 NT-Pro-B Natriuret Pep 147 pg/mL (0-125) H 08/13/22 22:15 Total Protein 6.9 g/dL (6.6-8.7) 08/13/22 22:15 Albumin 2.5 g/dL (3.5-5.2) L 08/13/22 22:15 Globulin 4.4 g/dL (1.3-4.6) 08/13/22 22:15 Urine Color Dark yellow (Yellow) 08/14/22 01:38 Urine Appearance Hazy (CLEAR) A 08/14/22 01:38 Urine pH 5 (5-7) 08/14/22 01:38 Ur Specific Randolph 1.020 (1.005-1.030) 08/14/22 01:38 Urine Protein 1+ (Negative) H 08/14/22 01:38 Urine Glucose (UA) Norm (Normal) 08/14/22 01:38 Urine Ketones 1+ (Negative) H 08/14/22 01:38 Urine Blood 3+ (Negative) H 08/14/22 01:38 Urine Nitrate Negative (Negative) 08/14/22 01:38 Urine Bilirubin 2+ (Negative) H 08/14/22 01:38 Urine Urobilinogen 1 mg/dL (Negative) H 08/14/22 01:38 Ur Leukocyte Esterase Negative (Negative) 08/14/22 01:38 Urine RBC 15-25 /hpf (0-2) H 08/14/22 01:38 Urine WBC None /hpf (0-5) 08/14/22 01:38 Ur Squamous Epith Cells 0-4 /hpf (0-5) H 08/14/22 01:38 Amorphous Sediment Not Reportable 08/14/22 01:38 Urine Bacteria Trace /hpf (NONE) 08/14/22 01:38 Urine Mucus 3+ /hpf 08/14/22 01:38 Discharge Plan Discharge Patient Disposition: Left Against Medical Advice Clinical Impression: Biloma following surgery, Post surgical complication Condition: Stable Prescriptions: No Action No Known Home Medications Coding Level of Care Code ED Helmet Hat Brim Cutter for Chg Fwd Exam Comprehensive
[2022-08-14 00:24] VITALS: PULSE 95; RESP 18; O2SAT 95
[2022-08-14 01:27] VITALS: RESP 18
[2022-08-14] MEDS: HYDROmorphone 1 mg/mL INJ 1 mL IVP (01:27)
[2022-08-14 01:47] LABS: Lactic Sepsis W/Reflex 1.3 mmol/L (0.5-2.2)
[2022-08-14 02:00] VITALS: BP 152/98; PULSE 107; RESP 18; O2SAT 95
[2022-08-14 02:12] LABS: Add Urine Microscopic? YES; Bilirubin Urine 2+ (Negative); Blood Urine 3+ (Negative); Glucose Urine UA Norm (Normal); Ketones Urine 1+ (Negative); Leukocyte Esterase Urine Negative (Negative); Nitrate Urine Negative (Negative); Protein Urine 1+ (Negative); Urine Appearance Hazy (CLEAR); Urine Color Dark Yellow (Yellow); Urobilinogen Urine 1 mg/dL (Negative); pH Urine 5 (5-7)
[2022-08-14 02:15] LABS: Add Urine Culture? No; Bacteria Urine TRACE /hpf; Mucus Urine 3+ /hpf; RBC Urine 15-25 /hpf (0-2); Squamous Epithelial Cell Urine 0-4 /hpf (0-5)
[2022-08-14 03:02] VITALS: BP 162/115; PULSE 108; RESP 20; O2SAT 95
[2022-08-14] MEDS: piperacillin-tazobactam 3.375 GM in sodium chloride 0.9% (plus) 50 ML IV (03:35)
[2022-08-14 05:21] VITALS: RESP 22; O2SAT 95
[2022-08-14] MEDS: morphine 4 mg/mL SDV 1 mL IVP (05:21)
[2022-08-14] MEDS: ondansetron 2 mg/ML SDV 2 mL 4 MG IVP (05:33)
[2022-08-14 05:46] VITALS: BP 146/104; PULSE 102; RESP 22; TEMP 36.8; O2SAT 96
== END 2022-08-14 05:45 | disposition left against medical advice (07) ==
PROVIDERS: Emergency Medicine; Emergency Provider Physician Assistant
DX: T81.89XA Other complications of procedures, not elsewhere classified, initial encounter (principal); Y83.8 Other surgical procedures as the cause of abnormal reaction of the patient, or of later complication, without mention of misadventure at the time of the procedure; K91.89 Other postprocedural complications and disorders of digestive system
CPT/HCPCS: 36415; 74176; 80053; 81001; 83605; 83880; 85007; 85025; 87040; 96365; 96366; 96375; 99285; J1170; J2270; J2405; J2543

== ENCOUNTER → 2023-01-25 12:54 | Outpatient (BNVA) | payer OTHER, SELFPAY | PROVIDERS: Visit Provider Family Medicine | DX: E11.9 Type 2 diabetes mellitus without complications (principal) | CPT/HCPCS: 80053; 80061; 83036; 85025 ==

== ENCOUNTER → 2023-04-21 10:00 | Outpatient (BNVA) | payer OTHER, SELFPAY | PROVIDERS: Visit Provider Podiatrist Foot & Ankle Surgery | DX: M21.372 Foot drop, left foot (principal); M79.2 Neuralgia and neuritis, unspecified | CPT/HCPCS: 73630 ==

== ENCOUNTER → 2023-05-19 09:13 | Outpatient (BNVA) | payer OTHER, SELFPAY | PROVIDERS: PCP Family Medicine; Referring Provider Family Medicine; Visit Provider Family Medicine | DX: Z51.81 Encounter for therapeutic drug level monitoring (principal); Z79.01 Long term (current) use of anticoagulants; I72.8 Aneurysm of other specified arteries | CPT/HCPCS: 81000; 85610 ==

== ENCOUNTER → 2023-05-26 09:39 | Outpatient (BNVA) | payer OTHER, SELFPAY | PROVIDERS: PCP Family Medicine; Referring Provider Family Medicine; Visit Provider Family Medicine | DX: Z79.01 Long term (current) use of anticoagulants (principal) | CPT/HCPCS: 85610 ==

== ENCOUNTER → 2023-06-01 08:37 | Outpatient (BNVA) | payer OTHER, SELFPAY | PROVIDERS: PCP Family Medicine; Visit Provider Family Medicine | DX: E11.9 Type 2 diabetes mellitus without complications (principal) | CPT/HCPCS: 80053; 83036; 85610 ==

== ENCOUNTER → 2023-06-08 09:54 | Outpatient (BNVA) | payer OTHER, SELFPAY | PROVIDERS: PCP Family Medicine; Referring Provider Family Medicine; Visit Provider Family Medicine | DX: Z51.81 Encounter for therapeutic drug level monitoring (principal); Z79.01 Long term (current) use of anticoagulants | CPT/HCPCS: 85610 ==

== ENCOUNTER → 2023-06-20 15:28 | Outpatient (BNVA) | payer OTHER, SELFPAY | PROVIDERS: PCP Family Medicine; Referring Provider Family Medicine; Visit Provider Family Medicine | DX: Z79.01 Long term (current) use of anticoagulants (principal) | CPT/HCPCS: 85610 ==

== ENCOUNTER 2023-06-26 22:32 | Emergency (ER) | payer OTHER, SELFPAY ==
[2023-06-26 22:57] VITALS: BP 133/79; PULSE 82; RESP 17; TEMP 37.2; O2SAT 97; BMI 45.7
--- NOTE | 2023-06-26 23:09 | XRR_ITS ---
PROCEDURE INFORMATION: Exam: XR Right Tibia and Fibula Exam date and time: 06/26/2023 11:19 PM Age: 58 years old Clinical indication: Pain and injury or trauma; Knee and lower leg; Right; Injury details: R knee pain after fall; Additional info: R leg pain after fall TECHNIQUE: Imaging protocol: Radiologic exam of the right tibia and fibula. Views: 2 views. COMPARISON: CR right knee 06/26/2023 11:19 PM FINDINGS: Bones/joints: No acute fracture or dislocation. Prominent degenerative changes in the right knee. Soft tissues: Normal. XR/XR tibia fibula RT 2V [id number] IMPRESSION: No acute findings.
--- NOTE | 2023-06-26 23:09 | XRR_ITS ---
PROCEDURE INFORMATION: Exam: XR Right Knee Exam date and time: 06/26/2023 11:19 PM Age: 58 years old Clinical indication: Knee and lower leg; Right; Patient HX: R knee pain after fall TECHNIQUE: Imaging protocol: Radiologic exam of the right knee. Views: 3 views. COMPARISON: CR right tibia/fibula 06/26/2023 11:19 PM FINDINGS: Bones/joints: No acute fracture or dislocation. [id number] degenerative changes, particularly in the medial compartment. No obvious joint effusion. Soft tissues: Normal. XR/XR knee RT 3V* [id number] IMPRESSION: 1. No acute fracture or dislocation. 2. [id number] degenerative changes, particularly in the medial compartment.
[2023-06-26 23:10] VITALS: BP 133/79; PULSE 79; RESP 18; O2SAT 97
[2023-06-27 00:14] VITALS: RESP 18; O2SAT 99
[2023-06-27 01:01] VITALS: PULSE 79; RESP 20; O2SAT 94
--- NOTE | 2023-06-27 01:28 | W.ED.EXTPRO ---
HPI - Extremity Problem General: Chief complaint: Extremity Injury, Lower Stated complaint: Fell\Walking Problems Time Seen by Provider: 06/26/23 23:01 History of Present Illness: 58-year-old female who fell earlier in the evening. She is having throbbing pain to her knee, and distal to the knee on the right. No ankle swelling. She believes the knee might be swollen. She does report history of knee arthritis on that side. She is having trouble bearing weight. Associated symptoms: Deny chest pain, fever(s) or rash Review of Systems Const: Denies: fever(s) Card: Denies: chest pain Resp: Denies: dyspnea GI: Denies: vomiting Musc: Denies: back pain Skin/Breast: Denies: rash PFSH ED PFSH: Medical History Allergy to alpha-gal No pertinent family history Surgical History History of abdominal surgery Bile duct repair, repair of bowel injury History of orthopedic surgery Left femur fracture repair Hx of cholecystectomy S/P aneurysm repair Hepatic aneurysm with stent placed Family History Father Hypertension Denies family history of Diabetes Clotting disorder Bleeding disorder Cancer Stroke Social History Smoking and tobacco status: current every day smoker Female Reproductive History: Para: 2 Spontaneous abortions: Yes (1) Physical Exam Const: COMMON NORMALS: no acute distress HENMT: COMMON NORMALS: normocephalic, atraumatic and Normal external nose present HEAD & SCALP: normocephalic and atraumatic NOSE: Normal external nose present and Normal nares present Eye: COMMON NORMALS: Equal, round and reactive pupils present and EOMs intact bilaterally PUPIL: Yes Equal, round and reactive pupils present Neck/C-Spine: GENERAL: Yes trachea midline Chest: CHEST: Yes Symmetrical chest wall rise Resp: COMMON NORMALS: normal respiratory effort and No use of accessory muscles Cardio: COMMON NORMALS: regular rate and regular rhythm RATE: regular rate RHYTHM: regular rhythm Extremity: NARRATIVE EXTREMITY EXAM: Minimal tenderness to the knee. There is a mild effusion. No deformity. Pain with range of motion. Neuro: TORO COMA SCALE: document GCS findings Toro coma scale eye opening: Spontaneous Toro coma scale verbal response: Orientated Toro coma scale motor response: Obey commands Radford coma scale total score: 15 Course Vital Signs: Vital signs: Vital Signs Temperature 98.9 F 06/26/23 22:57 Pulse Rate 79 06/27/23 01:01 Respiratory Rate 20 H 06/27/23 01:01 Blood Pressure 133/79 06/26/23 23:10 Pulse Oximetry 94 06/27/23 01:01 Oxygen Delivery Me thod Room Air 06/26/23 23:10 MDM - Extremity (Nontraumatic) Medical Decision Making Patient has significant knee arthritis on x-ray. No fracture. X-rays were interpreted by me prior to radiology read. Tib-fib shows nothing acute. She is given oral Dilaudid here. She notes that oxycodone makes her ill. She will be sent home with a small course of hydrocodone, ice, knee immobilizer for a few days. She was instructed not to stay in the knee immobilizer more than a few days, and to follow-up with her doctor. Lab Data Radiology Impressions Knee X-Ray 06/26/23 23:09 IMPRESSION: 1. No acute fracture or dislocation. 2. [id number] degenerative changes, particularly in the medial compartment. Tibia/Fibula X-Ray 06/26/23 23:09 IMPRESSION: No acute findings. XR interpretation done by ED provider, pending radiology final review Discharge Plan Discharge Patient Disposition: Home Clinical Impression: Osteoarthritis of right knee Condition: Stable Prescriptions: New hydrocodone-acetaminophen 5-325 mg tablet 1 tab PO Q8H PRN (Reason: pain) Qty: 9 0RF No Action acetaminophen [Tylenol] 325 mg tablet 325 mg PO QID PRN hydrocodone-acetaminophen 7.5-325 mg tablet 1 tab PO Q4H PRN lidocaine 5 % adhesive patch,medicated 1 patch topical DAILY 30 Days Qty: 30 2RF Rx Instructions: apply behind left knee for up to 12 hrs warfarin 3 mg tablet 3 mg PO DAILY 30 Days Qty: 30 2RF Protocol: Dose Management Condition: Tuesday Dose/Route: 4 mg Instruction: 1 x 4 mg tablet Condition: Tuesday Dose/Route: 4 mg Instruction: 1 x 4 mg tablet Condition: Tuesday Dose/Route: 4 mg Instruction: 1 x 4 mg tablet Condition: Tuesday Dose/Route: 4 mg Instruction: 1 x 4 mg tablet Condition: Dose/Route: 4 mg Instruction: 1 x 4 mg tablet Condition: Tuesday Dose/Route: 4 mg Instruction: 1 x 4 mg tablet Condition: Tuesday Dose/Route: 4 mg Instruction: 1 x 4 mg tablet Protocol Text: Adjustment Start Date: Tuesday06/08/23 INR Value: 25.4 Seconds INR Date: 06/08/23 Recheck Date: 06/22/23 cyclobenzaprine 10 mg tablet 10 mg PO TID 30 Days Qty: 90 2RF metoprolol tartrate 25 mg tablet 25 mg PO BID 30 Days Qty: 60 2RF metformin 500 mg tablet 500 mg PO DAILY 90 Days Qty: 90 1RF gabapentin 600 mg tablet 600 mg PO .COMPLEX 30 Days Qty: 60 2RF Rx Instructions: 600 mg orally 1/2 AM, 1/2 PM, 1 at bedtime; pantoprazole 40 mg tablet,delayed release (DR/EC) 40 mg PO DAILY 90 Days Qty: 90 1RF warfarin 2.5 mg tablet 2.5 mg PO DAILY Qty: 30 2RF Protocol: Dose Management Condition: Tuesday Dose/Route: 4 mg Instruction: 1 x 4 mg tablet Condition: Tuesday Dose/Route: 4 mg Instruction: 1 x 4 mg tablet Condition: Tuesday Dose/Route: 4 mg Instruction: 1 x 4 mg tablet Condition: Tuesday Dose/Route: 4 mg Instruction: 1 x 4 mg tablet Condition: Dose/Route: 4 mg Instruction: 1 x 4 mg tablet Condition: Tuesday Dose/Route: 4 mg Instruction: 1 x 4 mg tablet Condition: Tuesday Dose/Route: 4 mg Instruction: 1 x 4 mg tablet Protocol Text: Adjustment Start Date: Tuesday06/08/23 INR Value: 25.4 Seconds INR Date: 06/08/23 Recheck Date: 06/22/23 Rx Instructions: Take one every day as directed warfarin 1 mg tablet 1 mg PO DAILY Protocol: Dose Management Condition: Tuesday Dose/Route: 4 mg Instruction: 1 x 4 mg tablet Condition: Tuesday Dose/Route: 4 mg Instruction: 1 x 4 mg tablet Condition: Tuesday Dose/Route: 4 mg Instruction: 1 x 4 mg tablet Condition: Tuesday Dose/Route: 4 mg Instruction: 1 x 4 mg tablet Condition: Dose/Route: 4 mg Instruction: 1 x 4 mg tablet Condition: Tuesday Dose/Route: 4 mg Instruction: 1 x 4 mg tablet Condition: Tuesday Dose/Route: 4 mg Instruction: 1 x 4 mg tablet Protocol Text: Adjustment Start Date: Tuesday06/08/23 INR Value: 25.4 Seconds INR Date: 06/08/23 Recheck Date: 06/22/23 warfarin 2 mg tablet 4 mg PO DAILY Qty: 30 0RF Protocol: Dose Management Condition: Tuesday Dose/Route: 4 mg Instruction: 1 x 4 mg tablet Condition: Tuesday Dose/Route: 4 mg Instruction: 1 x 4 mg tablet Condition: Tuesday Dose/Route: 4 mg Instruction: 1 x 4 mg tablet Condition: Tuesday Dose/Route: 4 mg Instruction: 1 x 4 mg tablet Condition: Dose/Route: 4 mg Instruction: 1 x 4 mg tablet Condition: Tuesday Dose/Route: 4 mg Instruction: 1 x 4 mg tablet Condition: Tuesday Dose/Route: 4 mg Instruction: 1 x 4 mg tablet Protocol Text: Adjustment Start Date: Tuesday06/08/23 INR Value: 25.4 Seconds INR Date: 06/08/23 Recheck Date: 06/22/23 Rx Instructions: Take 2 tablets daily for 7 days, recheck INR on 06/01/23. warfarin 4 mg tablet 4 mg PO DAILY Qty: 30 2RF Protocol: Dose Management Condition: Tuesday Dose/Route: 4 mg Instruction: 1 x 4 mg tablet Condition: Tuesday Dose/Route: 4 mg Instruction: 1 x 4 mg tablet Condition: Tuesday Dose/Route: 4 mg Instruction: 1 x 4 mg tablet Condition: Tuesday Dose/Route: 4 mg Instruction: 1 x 4 mg tablet Condition: Dose/Route: 4 mg Instruction: 1 x 4 mg tablet Condition: Tuesday Dose/Route: 4 mg Instruction: 1 x 4 mg tablet Condition: Tuesday Dose/Route: 4 mg Instruction: 1 x 4 mg tablet Protocol Text: Adjustment Start Date: Tuesday06/08/23 INR Value: 25.4 Seconds INR Date: 06/08/23 Recheck Date: 06/22/23 Discharge Orders: Discharge ED (Routine); Ordered 06/26/23 Ordered By: Anibal Carlos Referrals: Nica Hernández MD [Primary Care Provider] - 1-3 days Patient Instructions: Knee Sprain (ED), Osteoarthritis (ED), Opioid Safety, Pain Management Activity Restrictions/Additional Instructions: You may begin to bear weight on your knee as tolerated. Ice frequently, especially for the next 48 hours. Try not to wear the knee immobilizer any longer than 4 to 5 days. Follow-up with your doctor this week. 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
== END 2023-06-27 01:06 | disposition home or self-care (01) ==
PROVIDERS: Emergency Provider Emergency Medicine; PCP Family Medicine
DX: M17.11 Unilateral primary osteoarthritis, right knee (principal); Z79.01 Long term (current) use of anticoagulants; Z79.84 Long term (current) use of oral hypoglycemic drugs; F17.210 Nicotine dependence, cigarettes, uncomplicated
CPT/HCPCS: 29530; 73562; 73590; 99283

== ENCOUNTER 2023-07-19 11:17 | Outpatient (CLI) | payer OTHER, SELFPAY | END 2023-07-19 11:18 | disposition home or self-care (01) | PROVIDERS: PCP Family Medicine; Visit Provider Family Medicine | DX: Z51.81 Encounter for therapeutic drug level monitoring (principal); Z79.01 Long term (current) use of anticoagulants; I72.8 Aneurysm of other specified arteries | CPT/HCPCS: 36415; 85610 ==

== ENCOUNTER → 2023-07-27 09:12 | Outpatient (BNVA) | payer OTHER, SELFPAY | PROVIDERS: PCP Family Medicine; Visit Provider Family Medicine | DX: Z79.01 Long term (current) use of anticoagulants (principal); Z51.81 Encounter for therapeutic drug level monitoring | CPT/HCPCS: 85610 ==

== ENCOUNTER 2023-07-29 06:00 | Outpatient (CLI) | payer OTHER, SELFPAY | END 2023-07-29 23:59 | disposition home or self-care (01) | LOC: SPT 09-15 14:43 | PROVIDERS: PCP Family Medicine; Visit Provider Physician Assistant | DX: Z47.89 Encounter for other orthopedic aftercare (principal) | CPT/HCPCS: L1852 ==

== ENCOUNTER → 2023-07-29 09:22 | Outpatient (BNVA) | payer OTHER, SELFPAY | PROVIDERS: PCP Family Medicine; Referring Provider Family Medicine; Visit Provider Physician Assistant | DX: M17.11 Unilateral primary osteoarthritis, right knee | CPT/HCPCS: 73560; 73565 ==

== ENCOUNTER → 2023-08-10 08:37 | Outpatient (BNVA) | payer OTHER, SELFPAY | PROVIDERS: PCP Family Medicine; Referring Provider Family Medicine; Visit Provider Family Medicine | DX: Z51.81 Encounter for therapeutic drug level monitoring (principal); Z79.01 Long term (current) use of anticoagulants | CPT/HCPCS: 85610 ==

== ENCOUNTER → 2023-08-22 10:36 | Outpatient (BNVA) | payer OTHER, SELFPAY | PROVIDERS: PCP Family Medicine; Referring Provider Family Medicine; Visit Provider Family Medicine | DX: Z51.81 Encounter for therapeutic drug level monitoring (principal); Z79.01 Long term (current) use of anticoagulants | CPT/HCPCS: 85610 ==

== ENCOUNTER → 2023-09-05 08:49 | Outpatient (BNVA) | payer OTHER, SELFPAY | PROVIDERS: PCP Family Medicine; Referring Provider Family Medicine; Visit Provider Family Medicine | DX: Z51.81 Encounter for therapeutic drug level monitoring (principal); Z79.01 Long term (current) use of anticoagulants | CPT/HCPCS: 85610 ==

== ENCOUNTER → 2023-09-21 08:10 | Outpatient (BNVA) | payer OTHER, SELFPAY | PROVIDERS: PCP Family Medicine; Visit Provider Family Medicine | DX: Z79.01 Long term (current) use of anticoagulants (principal); G62.9 Polyneuropathy, unspecified; G89.29 Other chronic pain | CPT/HCPCS: 85610 ==

== ENCOUNTER → 2023-10-13 10:04 | Outpatient (BNVA) | payer OTHER, SELFPAY | PROVIDERS: PCP Family Medicine; Visit Provider Nurse Practitioner Family | DX: R39.9 Unspecified symptoms and signs involving the genitourinary system (principal); R31.9 Hematuria, unspecified; N39.0 Urinary tract infection, site not specified | CPT/HCPCS: 81000; 87077; 87086; 87184 ==

== ENCOUNTER → 2023-10-31 14:08 | Outpatient (BNVA) | payer OTHER, SELFPAY | PROVIDERS: PCP Family Medicine; Visit Provider Family Medicine | DX: Z79.01 Long term (current) use of anticoagulants (principal) | CPT/HCPCS: 85610 ==

== ENCOUNTER → 2023-11-02 09:28 | Outpatient (BNVA) | payer OTHER, SELFPAY | PROVIDERS: PCP Family Medicine; Referring Provider Family Medicine; Visit Provider Family Medicine | DX: Z79.01 Long term (current) use of anticoagulants (principal) | CPT/HCPCS: 85610 ==

== ENCOUNTER → 2023-11-04 09:01 | Outpatient (BNVA) | payer OTHER, SELFPAY | PROVIDERS: PCP Family Medicine; Referring Provider Family Medicine; Visit Provider Family Medicine | DX: Z51.81 Encounter for therapeutic drug level monitoring (principal); Z79.01 Long term (current) use of anticoagulants | CPT/HCPCS: 85610 ==

== ENCOUNTER → 2023-11-07 09:18 | Outpatient (BNVA) | payer OTHER, SELFPAY | PROVIDERS: PCP Family Medicine; Visit Provider Family Medicine | DX: Z79.01 Long term (current) use of anticoagulants (principal) | CPT/HCPCS: 85610 ==

== ENCOUNTER → 2023-11-10 14:07 | Outpatient (BNVA) | payer OTHER, SELFPAY | PROVIDERS: PCP Family Medicine; Referring Provider Family Medicine; Visit Provider Family Medicine | DX: I72.8 Aneurysm of other specified arteries (principal); R35.0 Frequency of micturition; Z79.01 Long term (current) use of anticoagulants; Z51.81 Encounter for therapeutic drug level monitoring | CPT/HCPCS: 80053; 81000; 82977; 85610; 87086 ==

== ENCOUNTER 2023-11-17 01:02 | Emergency (ER) | payer OTHER, SELFPAY ==
[2023-11-17 01:08] VITALS: BP 170/100; PULSE 91; RESP 18; TEMP 36.7; O2SAT 96; BMI 46.4
--- NOTE | 2023-11-17 01:25 | ED_ITS ---
HPI - Wound/Laceration 2 General: Chief Complaint: Wound/Laceration Stated Complaint: Abd wound bleeding Time Seen by Provider: 11/17/23 01:06 History of Present Illness: 58-year-old female presents to the emerg ency department with complaints that she has bleeding from a previous postoperative wound site. She states that in 2021 she had a cholecystectomy at [facility] and ultimately had to be transferred to [facility] in [place] for additional treatment and prolonged recovery. The patient states she had a wound VAC in place for very long time and she is still not completely healed and will intermittently have bleeding from her existing wound. She states her INR has recently been significantly elevated because of urinary tract infection and required antibiotics. She denies dizziness lightheaded feeling nausea or vomiting. She presents here tonight because she feels like the bleeding has started again and she is unable to get it to stop. Review of Systems 2 General: Reports: 10 or more systems reviewed and unremarkable except in HPI and below Skin/Breast: Reports: other (Abdominal wound with delayed healing and bleeding) PFSH ED 2 PFSH: Medical History Allergy to alpha-gal No pertinent family history Surgical History History of orthopedic surgery Left femur fracture repair S/P aneurysm repair Hepatic aneurysm with stent placed History of abdominal surgery Bile duct repair, repair of bowel injury Hx of cholecystectomy Family History Father Hypertension Denies family history of Diabetes Clotting disorder Bleeding disorder Cancer Stroke Social History Smoking and tobacco/nicotine status: former use of tobacco/nicotine Alcohol intake: never Female Reproductive History: Para: 2 Spontaneous abortions: Yes (1) Physical Exam 2 Narrative: EXAM NARRATIVE: Constitutional: the patient appears well nourished and of normal development. Vital signs as documented. No acute distress at present. Alert and oriented-to person, place, time and situation. Head, eyes, ears, nose, mouth, throat: Normocephalic, atraumatic. Pupils-equal, round, reactive to light. No scleral icterus. Normal-appearing external ears. Normal appearing nasal turbinates, no drainage. No obvious oral lesions, posterior oropharynx without erythema or exudates. Neck: Supple, trachea is midline, no lymphadenopathy, no jugular venous distension, thyromegaly, or carotid bruits. Carotid upstrokes are brisk bilaterally. Lungs: clear to auscultation to all lung romeo. Symmetrical rise and fall of chest, no obvious signs of increased work of breathing at present. Cardiac: Regular rate and rhythm, positive S1, S2. No murmurs, rubs or gallops that I can appreciate Abdomen: Soft, non-tender to palpation, normal active bowel sounds to all quadrants. No palpable masses, no organomegaly and abdominal bruits. She does have a 2 cm delayed healing wound that is oozing slightly. She does have a ventral hernia that is noted the remaining surgical wound is well-approximated and well-healed. Extremities: 2+ pulses in the upper extremities that are equal bilaterally, 2+ pulses in the lower extremities that are equal bilaterally. Non-edematous. Moves all extremities well, sensation to all extremities are noted. Skin: Warm, dry, intact. Course 2 Vital Signs: Vital signs: Vital Signs Temperature 98.0 F 11/17/23 01:08 Pulse Rate 76 11/17/23 02:13 Respiratory Rate 17 11/17/23 02:13 Blood Pressure 170/100 11/17/23 01:08 Pulse Oximetry 94 11/17/23 02:13 Oxygen Delivery Me thod Room Air 11/17/23 01:43 MDM - Wound/Laceration Medical Decision Making Physical exam completed and documented I will obtain laboratory evaluation as well as provide her wound care and have her follow-up with her primary care provider. Medical Records I reviewed the patient's medical records. Lab Data I reviewed the patient's lab results. 11/17/23 01:38 11/17/23 01:38 Laboratory Results WBC 7.66 10^3/uL (3.29-11.43) 11/17/23 01:38 RBC 4.18 10^6/uL (3.85-5.65) 11/17/23 01:38 Hgb 12.40 g/dL (11.27-16.99) 11/17/23 01:38 Hct 39.9 % (36-47) 11/17/23 01:38 MCV 95.5 fl (85-98) 11/17/23 01:38 MCH 29.7 pg (27-33) 11/17/23 01:38 MCHC 31.1 g/dL (30-55) 11/17/23 01:38 RDW 15.6 % (12.1-15.1) H 11/17/23 01:38 Plt Count 244 10^3/cmm (157-399) 11/17/23 01:38 MPV 9.6 fL (7.4-10.4) 11/17/23 01:38 Neut % (Auto) 67.1 % 11/17/23 01:38 Lymph % (Auto) 21.0 % 11/17/23 01:38 Nobles % (Auto) 6.5 % 11/17/23 01:38 Eos % (Auto) 3.5 % 11/17/23 01:38 Baso % (Auto) 0.7 % 11/17/23 01:38 Neut # (Auto) 5.14 10^3/uL (1.8-7.7) 11/17/23 01:38 Lymph # (Auto) 1.6 10^3/uL (0.8-4.8) 11/17/23 01:38 Nobles # (Auto) 0.5 10^3/uL (0.2-0.9) 11/17/23 01:38 Eos # (Auto) 0.3 10^3/uL (0.0-0.8) 11/17/23 01:38 Baso # (Auto) 0.1 10^3/uL (0.0-0.1) 11/17/23 01:38 Nucleated RBC % (auto) 0 % 11/17/23 01:38 Nucleated RBCs # 0.0 /100WBC 11/17/23 01:38 PT 21.20 SECONDS (12.1-14.9) H 11/17/23 01:38 INR 1.76 (0.8-1.2) H 11/17/23 01:38 Sodium 137 mmol/L (136-145) 11/17/23 01:38 Potassium 4.1 mmol/L (3.5-5.1) 11/17/23 01:38 Chloride 99 mmol/L (98-107) 11/17/23 01:38 Carbon Dioxide 27 mmol/L (22-29) 11/17/23 01:38 Anion Gap 15.1 (5-19) 11/17/23 01:38 BUN 20 mg/dL (6-20) 11/17/23 01:38 Creatinine 0.7 mg/dL (0.5-0.9) 11/17/23 01:38 GFR Calculation 86.2 mL/min (90-130) L 11/17/23 01:38 Glucose 285 mg/dL (65-115) H 11/17/23 01:38 Calculated Osmolality 297 mOsm/kg (285-295) H 11/17/23 01:38 Calcium 9.5 mg/dL (8.5-10.5) 11/17/23 01:38 Total Bilirubin 2.0 mg/dL (0.15-1.2) H 11/17/23 01:38 AST 58 U/L (0-32) H 11/17/23 01:38 ALT 56 U/L (0-33) H 11/17/23 01:38 Alkaline Phosphatase 485 U/L (35-105) H 11/17/23 01:38 Total Protein 8.0 g/dL (6.6-8.7) 11/17/23 01:38 Albumin 3.7 g/dL (3.5-5.2) 11/17/23 01:38 Globulin 4.3 g/dL (1.3-4.6) 11/17/23 01:38 No radiology studies performed this visit Discharge Plan Discharge Patient Disposition: Home Clinical Impression: Postoperative abdominal wound hemorrhage Condition: Stable Prescriptions: No Action acetaminophen [Tylenol] 325 mg tablet 325 mg PO QID PRN warfarin 3 mg tablet 3 mg PO DAILY Qty: 30 2RF Protocol: Dose Management Condition: Tuesday Dose/Route: 3 mg Instruction: 1 x 3 mg tablet Condition: Tuesday Dose/Route: 4 mg Instruction: 1 x 4 mg tablet Condition: Tuesday Dose/Route: 4 mg Instruction: 1 x 4 mg tablet Condition: Tuesday Dose/Route: 3 mg Instruction: 1 x 3 mg tablet Condition: Dose/Route: 4 mg Instruction: 1 x 4 mg tablet Condition: Tuesday Dose/Route: 4 mg Instruction: 1 x 4 mg tablet Condition: Tuesday Dose/Route: 4 mg Instruction: 1 x 4 mg tablet Protocol Text: Adjustment Start Date: Tuesday08/15/23 INR Value: 20.40 SECONDS INR Date: 08/10/23 Recheck Date: 08/25/23 Rx Instructions: Take one tablet 3 days a week or as directed phytonadione (vitamin K1) 100 mcg tablet 1 mg PO ONCE Qty: 10 0RF metformin 500 mg tablet 500 mg PO DAILY 90 Days Qty: 90 1RF pantoprazole 40 mg tablet,delayed release (DR/EC) 40 mg PO DAILY 90 Days Qty: 90 1RF warfarin 4 mg tablet 4 mg PO DAILY Qty: 30 2RF Protocol: Dose Management Condition: Tuesday Dose/Route: 3 mg Instruction: 1 x 3 mg tablet Condition: Tuesday Dose/Route: 4 mg Instruction: 1 x 4 mg tablet Condition: Tuesday Dose/Route: 4 mg Instruction: 1 x 4 mg tablet Condition: Tuesday Dose/Route: 3 mg Instruction: 1 x 3 mg tablet Condition: Dose/Route: 4 mg Instruction: 1 x 4 mg tablet Condition: Tuesday Dose/Route: 4 mg Instruction: 1 x 4 mg tablet Condition: Tuesday Dose/Route: 4 mg Instruction: 1 x 4 mg tablet Protocol Text: Adjustment Start Date: Tuesday08/15/23 INR Value: 20.40 SECONDS INR Date: 08/10/23 Recheck Date: 08/25/23 Rx Instructions: Take one tablet 4 days a week (DME) 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 See Rx Instructions .Route .MEDSUPPLY Qty: 1 0RF Rx Instructions: As directed tramadol 50 mg tablet 50 mg PO DAILY PRN (Reason: pain) 30 Days Qty: 30 0RF metoprolol tartrate 25 mg tablet 25 mg PO BID 30 Days Qty: 60 2RF gabapentin 600 mg tablet 600 mg PO TID 30 Days Qty: 90 0RF cyclobenzaprine 10 mg tablet 10 mg PO TID 30 Days Qty: 90 0RF Discharge Orders: Discharge ED (Routine); Ordered 11/17/23 Ordered By: Abrahan Clifford Referrals: Nica Hernández MD [Primary Care Provider] - Discharge Diet: Usual diet Discharge Activity: Resume usual activity Patient Instructions: Opioid Safety, Pain Management Activity Restrictions/Additional Instructions: Activity Restrictions/Additional Instructions: Thank you for choosing [facility] for your healthcare needs today. Please realize that you were seen in the Emergency Department and that we are providing you with an emergency medical screening exam and this may not be a complete and all inclusive of all the testing and or medical work-up that you may need to determine your ailment or severity of your illness. It is very important that you follow-up as instructed with your Primary care provider or Specialist for additional evaluation and to discuss your medical treatment plan. You may return to the Emergency Department should you have concerns or if your condition changes or worsens in any way. 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
[2023-11-17 01:43] VITALS: PULSE 93; O2SAT 95
[2023-11-17 01:43] LABS: Basophils # 0.1 10^3/uL (0.0-0.1); Basophils % 0.7 %; Eosinophils # 0.3 10^3/uL (0.0-0.8); Eosinophils % 3.5 %; Hematocrit 39.9 % (36-47); Lymphocytes # 1.6 10^3/uL (0.8-4.8); Mean Corpuscular HGB Conc 31.1 g/dL (30-55); Mean Corpuscular Hemoglobin 29.7 pg (27-33); Mean Corpuscular Volume 95.5 fl (85-98); Mean Platelet Volume 9.6 fL (7.4-10.4); Monocytes # 0.5 10^3/uL (0.2-0.9); Monocytes % 6.5 %; Neutrophils # 5.14 10^3/uL (1.8-7.7); Neutrophils % 67.1 %; Nucleated Red Blood Cells % 0 %; Platelet Count 244 10^3/cmm (157-399); Red Blood Count 4.18 10^6/uL (3.85-5.65); Red Cell Distribution Width 15.6 % (12.1-15.1); White Blood Count 7.66 10^3/uL (3.29-11.43)
[2023-11-17 01:56] LABS: INR 1.76 (0.8-1.2)
[2023-11-17 02:05] LABS: Alanine Aminotransferase 56 U/L (0-33); Albumin Level 3.7 g/dL (3.5-5.2); Alkaline Phosphatase 485 U/L (35-105); Anion Gap 15.1 (5-19); Aspartate Amino Transferase 58 U/L (0-32); Blood Urea Nitrogen 20 mg/dL (6-20); Calcium 9.5 mg/dL (8.5-10.5); Carbon Dioxide 27 mmol/L (22-29); Chloride 99 mmol/L (98-107); Globulin 4.3 g/dL (1.3-4.6); Glomerular Filtration Rate 86.2 mL/min (90-130); Glucose 285 mg/dL (65-115); Osmolality Calculated 297 mOsm/kg (285-295); Potassium 4.1 mmol/L (3.5-5.1); Sodium 137 mmol/L (136-145)
[2023-11-17 02:13] VITALS: PULSE 76; RESP 17; O2SAT 94
[2023-11-17 02:45] VITALS: BP 156/92; PULSE 78; O2SAT 98
== END 2023-11-17 02:49 | disposition home or self-care (01) ==
PROVIDERS: Emergency Provider Internal Medicine; PCP Family Medicine
DX: L76.22 Postprocedural hemorrhage of skin and subcutaneous tissue following other procedure (principal); Z79.01 Long term (current) use of anticoagulants; Z79.84 Long term (current) use of oral hypoglycemic drugs; Z87.891 Personal history of nicotine dependence
CPT/HCPCS: 36415; 80053; 85025; 85610; 99283

== ENCOUNTER → 2023-11-20 11:21 | Outpatient (BNVA) | payer OTHER, SELFPAY | PROVIDERS: PCP Family Medicine; Referring Provider Family Medicine; Visit Provider Family Medicine | DX: Z51.81 Encounter for therapeutic drug level monitoring (principal); Z79.01 Long term (current) use of anticoagulants | CPT/HCPCS: 85610 ==

== ENCOUNTER → 2023-11-24 08:57 | Outpatient (BNVA) | payer OTHER, SELFPAY | PROVIDERS: PCP Family Medicine; Visit Provider Family Medicine | DX: I72.8 Aneurysm of other specified arteries (principal); Z51.81 Encounter for therapeutic drug level monitoring; Z79.01 Long term (current) use of anticoagulants | CPT/HCPCS: 80053; 82977; 85610 ==

== ENCOUNTER → 2023-11-24 12:03 | Outpatient (BNVA) | payer OTHER, SELFPAY | PROVIDERS: PCP Family Medicine; Visit Provider Family Medicine | DX: I72.8 Aneurysm of other specified arteries (principal); Z79.01 Long term (current) use of anticoagulants; Z51.81 Encounter for therapeutic drug level monitoring | CPT/HCPCS: 85610 ==

== ENCOUNTER → 2023-12-01 11:17 | Outpatient (BNVA) | payer OTHER, SELFPAY | PROVIDERS: PCP Family Medicine; Referring Provider Family Medicine; Visit Provider Family Medicine | DX: Z51.81 Encounter for therapeutic drug level monitoring (principal); Z79.01 Long term (current) use of anticoagulants | CPT/HCPCS: 85610 ==

== ENCOUNTER → 2023-12-08 09:30 | Outpatient (BNVA) | payer OTHER, SELFPAY | PROVIDERS: PCP Family Medicine; Visit Provider Family Medicine | DX: Z51.81 Encounter for therapeutic drug level monitoring (principal); Z79.01 Long term (current) use of anticoagulants | CPT/HCPCS: 85610 ==

== ENCOUNTER → 2023-12-21 08:12 | Outpatient (BNVA) | payer OTHER, SELFPAY | PROVIDERS: PCP Family Medicine; Visit Provider Family Medicine | DX: Z51.81 Encounter for therapeutic drug level monitoring (principal); Z79.01 Long term (current) use of anticoagulants | CPT/HCPCS: 85610 ==

== ENCOUNTER → 2023-12-26 12:11 | Outpatient (BNVA) | payer OTHER, SELFPAY | PROVIDERS: PCP Family Medicine; Visit Provider Family Medicine | DX: Z51.81 Encounter for therapeutic drug level monitoring (principal); Z79.01 Long term (current) use of anticoagulants | CPT/HCPCS: 85610 ==

== ENCOUNTER → 2023-12-29 10:24 | Outpatient (BNVA) | payer OTHER, SELFPAY | PROVIDERS: PCP Family Medicine; Visit Provider Family Medicine | DX: Z51.81 Encounter for therapeutic drug level monitoring (principal); Z79.01 Long term (current) use of anticoagulants | CPT/HCPCS: 85610 ==

== ENCOUNTER → 2024-01-05 10:34 | Outpatient (BNVA) | payer OTHER, SELFPAY | PROVIDERS: PCP Family Medicine; Visit Provider Family Medicine | DX: Z51.81 Encounter for therapeutic drug level monitoring (principal); Z79.01 Long term (current) use of anticoagulants | CPT/HCPCS: 85610 ==

== ENCOUNTER → 2024-01-09 13:04 | Outpatient (BNVA) | payer OTHER, SELFPAY | PROVIDERS: PCP Family Medicine; Referring Provider Family Medicine; Visit Provider Family Medicine | DX: Z79.01 Long term (current) use of anticoagulants (principal) | CPT/HCPCS: 85610 ==

== ENCOUNTER → 2024-01-13 13:14 | Outpatient (BNVA) | payer OTHER, SELFPAY | PROVIDERS: PCP Family Medicine; Referring Provider Family Medicine; Visit Provider Family Medicine | DX: Z79.01 Long term (current) use of anticoagulants (principal) | CPT/HCPCS: 85610 ==

== ENCOUNTER → 2024-01-19 14:42 | Outpatient (BNVA) | payer OTHER, SELFPAY | PROVIDERS: PCP Family Medicine; Visit Provider Family Medicine | DX: Z79.01 Long term (current) use of anticoagulants (principal) | CPT/HCPCS: 85610 ==

== ENCOUNTER → 2024-01-25 11:31 | Outpatient (BNVA) | payer OTHER, SELFPAY | PROVIDERS: PCP Family Medicine; Referring Provider Family Medicine; Visit Provider Family Medicine | DX: Z51.81 Encounter for therapeutic drug level monitoring (principal); Z79.01 Long term (current) use of anticoagulants | CPT/HCPCS: 85610 ==

== ENCOUNTER → 2024-01-27 13:20 | Outpatient (BNVA) | payer OTHER, SELFPAY | PROVIDERS: PCP Family Medicine; Referring Provider Family Medicine; Visit Provider Family Medicine | DX: Z51.81 Encounter for therapeutic drug level monitoring (principal); Z79.01 Long term (current) use of anticoagulants | CPT/HCPCS: 85610 ==

== ENCOUNTER → 2024-01-30 12:46 | Outpatient (BNVA) | payer OTHER, SELFPAY | PROVIDERS: PCP Family Medicine; Referring Provider Family Medicine; Visit Provider Family Medicine | DX: Z51.81 Encounter for therapeutic drug level monitoring (principal); Z79.01 Long term (current) use of anticoagulants | CPT/HCPCS: 85610 ==

== ENCOUNTER → 2024-01-31 09:55 | Outpatient (BNVA) | payer OTHER, SELFPAY | PROVIDERS: PCP Family Medicine; Visit Provider Physician Assistant | DX: M17.12 Unilateral primary osteoarthritis, left knee; M25.462 Effusion, left knee; M21.372 Foot drop, left foot | CPT/HCPCS: 73560; 73565 ==

== ENCOUNTER 2024-02-03 08:26 | Emergency (ER) | payer OTHER, SELFPAY ==
[2024-02-03] VITALS (24 sets, daily range): BP systolic 132–168; BP diastolic 53–89; PULSE 62–67; RESP 17–18; TEMP 36.8; O2SAT 91–97
--- NOTE | 2024-02-03 08:47 | CT_ITS ---
WS: [id number] CT ABDOMEN AND PELVIS WITH CONTRAST HISTORY: abd pain, open abdominal wound, chronic. TECHNIQUE: Imaging performed of the abdomen and pelvis with IV contrast. Single phase imaging of the abdomen. Coronal and sagittal reformats are submitted. All CT scans at [facility] use at [facility] one of these dose optimization techniques: automated exposure control; mA and/or kV adjustment per patient size (includes targeted exams where dose is matched to clinical indication); or iterative re construction. IV CONTRAST: Omnipaque 350; 100 mL IV. Oral contrast: No DLP: 1101.18 mGy.cm COMPARISON: 08/14/2022 Lower thorax: Lung bases are clear. Heart is normal size. No hiatal hernia. Liver/biliary system: Liver is mildly enlarged with intrahepatic duct dilatation. This may be related to the prior cholecystectomy. There is a tubular foreign body which is probably a stent in the albino hepatis. This was not present on the study of 08/14/2022. Short segment tubular structure measuring 3.0 cm. Gallbladder: Prior cholecystectomy. No residual fluid collection in the gallbladder fossa. Pancreas: Normal size pancreas and pancreatic duct. No adjacent inflammation. Common bile duct long s tent that was previously present on the exam from 08/14/2022 is no longer present. Spleen: 16.1 cm in length. Spleen is enlarged as also noted on prior studies. Previously described pe risplenic fluid collections are no longer present. Adrenal glands: Normal. Right kidney: Normal. Left kidney: Normal. Aorta: Mild atherosclerosis with no aneurysm. Lymphadenopathy: There is a small lymph node near the albino hepatis which was present on the prior udy also. No adenopathy. Free fluid: None. GI tract: Nondistended stomach. No small bowel obstruction. Diffuse constipation. Normal appendix. No colitis. Abdominal wall: Patient has a known superficial abdominal wall wound which has been treated. Marked t hinning of the abdominal wall with diastases. There is no fluid collection and no obstruction. There is a large ventral hernia below the umbilicus containing small bowel. No obstruction. There is a sing le loop of small bowel with fecalization suggesting there may be a component of a longstanding obstru ction. Pelvis: Nondistended bladder. No free fluid. No adenopathy. Bones: Increase in the lumbar lordosis. Grade 1 anterolisthesis of L5, bilateral pars defects at L5. CT/CT abdomen pelvis w con* [id number] IMPRESSION: 1. Patient has a known abdominal wall wound. There is no abscess identified al kristi the subcutaneous soft tissues of the abdominal wall. 2. Large infraumbilical abdominal wall hernia containing small bowel. There is no significant obstruction. There is a single loop of small bowel with fecaliz ation suggesting chronic longstanding minimal obstruction. 3. Previously described long common bile duct stent is no longer identified. T here is an additional stent more centrally located in the albino hepatis. This i s a shorter stent. No prior studies to confirm if this stent is appropriately p ositioned. 4. Mild intrahepatic duct dilatation may be related to the prior cholecystecto my. 5. IVC filter. 6. No residual fluid collections. 7. Splenomegaly. 8. Common bile duct and the bile duct at the pancreatic head are normal. Notified Ginger Cosby MD at 02/03/2024 10:58 AM.
[2024-02-03] MEDS: silver nitrate applicator 1 EACH TOPICAL (08:50)
--- NOTE | 2024-02-03 08:56 | ED_ITS ---
HPI - Wound/Laceration 2 General: Chief Complaint: Wound/Laceration Stated Complaint: abd pain, bleeding from wound Time Seen by Provider: 02/03/24 08:35 Source: patient Mode of arrival: ambulatory Limitations: no limitations History of Present Illness: 58-year-old female who has a history of a cholecystectomy 2 years ago with multiple complications and of having a large abdominal wound she is seeing wound care for the wound she is on Coumadin as well states she had some oozing of blood from the wound this has happened before she soaked through a pad overnight. She states she been having diffuse pain for the last 1 to 2 weeks as well as supposed to have an outpatient CT scan rates her pain a 2 out of 10 currently denies any vomiting or diarrhea or fever Associated symptoms: Denies chills, fever(s), nausea or vomiting Review of Systems 2 Const: Denies: fever(s), chills, body aches or change in appetite Eyes: Denies: blurry vision or eye discomfort ENMT: Denies: throat pain or dental pain Card: Denies: chest pain Resp: Denies: dyspnea GI: Reports: abdominal pain; Denies: nausea, vomiting or diarrhea Musc: Denies: neck pain or back pain Skin/Breast: Denies: rash Neuro: Denies: headache(s) PFSH ED 2 PFSH: Medical History Allergy to alpha-gal No pertinent family history Surgical History History of orthopedic surgery Left femur fracture repair S/P aneurysm repair Hepatic aneurysm with stent placed History of abdominal surgery Bile duct repair, repair of bowel injury Hx of cholecystectomy Family History Father Hypertension Denies family history of Diabetes Clotting disorder Bleeding disorder Cancer Stroke Social History Smoking and tobacco/nicotine status: former use of tobacco/nicotine Alcohol intake: never Female Reproductive History: Para: 2 Spontaneous abortions: Yes (1) Physical Exam 2 Const: COMMON NORMALS: no acute distress, patient oriented x3 and healthy appearing HENMT: COMMON NORMALS: normocephalic and atraumatic HEAD & SCALP: n ormocephalic and atraumatic Eye: COMMON NORMALS: conjunctivae normal CONJUNCTIVA: Yes conjunctivae normal Neck/C-Spine: COMMON NORMALS: full ROM and supple Chest: COMMONS NORMALS: normal inspection of the chest Resp: COMMON NORMALS: normal respiratory effort, No retractions, No use of accessory muscles and clear to auscultation bilaterally AUSCULTATION: clear to auscultation bilaterally Cardio: COMMON NORMALS: regular rate, regular rhythm and No murmurs present (Cardio) RATE: regular rate RHYTHM: regular rhythm GI: COMMON NORMALS: Soft to palpation and no masses PALPATION: Yes Soft to palpation OTHER: Mild tenderness to diffuse abdomen some slight oozing of blood from her abdominal scar Extremity: COMMON NORMALS: normal to inspection and full ROM Neuro: COMMON NORMALS: patient oriented x3, moves all extremities and no focal motor deficits Psych: COMMON NORMALS: mental status grossly normal, Normal thought process present and cooperative THOUGHT PROCESS: Normal thought process present Skin: COMMON NORMALS: no rashes or lesions noted and no wounds GENERAL SKIN EXAM: no rashes or lesions noted Procedures Laceration Laceration 1: Site: other (abd) Size (cm): 0.5 Depth: simple, single layer Local Anesthetic: lidocaine 1% and with epi Amount of anesthesia used (mL): 5 Pre-repair: wound explored Skin layer closed with: vicryl Size (cm): 4-0 Number of sutures: 1 Technique: other (figure of 8) Course 2 Vital Signs: Vital signs: Vital Signs Temperature 98.2 F 02/03/24 08:35 Pulse Rate 62 02/03/24 11:24 Respiratory Rate 17 02/03/24 11:24 Blood Pressure 132/53 02/03/24 11:24 Pulse Oximetry 96 02/03/24 11:24 Oxygen Delivery Me thod Room Air 02/03/24 08:35 MDM - Wound/Laceration Medical Decision Making Patient presents here with abdominal pain CT scan here showed no acute abnormalities did inform her bilirubin slightly elevated she is to follow-up with her PCP to have it rechecked next week she had some bleeding from the wound on her abdomen that was mild was able to stop with [id number] stitch her pain is improved exam at discharge benign she is return if worsening she understands agrees to plan Medical Records I reviewed the patient's medical records. Lab Data I reviewed the patient's lab results. 02/03/24 08:47 02/03/24 08:47 Radiology Impressions Abdomen/Pelvis CT 02/03/24 08:47 IMPRESSION: 1. Patient has a known abdominal wall wound. There is no abscess identified along the subcutaneous soft tissues of the abdominal wall. 2. Large infraumbilical abdominal wall hernia containing small bowel. There is no significant obstruction. There is a single loop of small bowel with fecalization suggesting chronic longstanding minimal obstruction. 3. Previously described long common bile duct stent is no longer identified. There is an additional stent more centrally located in the albino hepatis. This is a shorter stent. No prior studies to confirm if this stent is appropriately positioned. 4. Mild intrahepatic duct dilatation may be related to the prior cholecystectomy. 5. IVC filter. 6. No residual fluid collections. 7. Splenomegaly. 8. Common bile duct and the bile duct at the pancreatic head are normal. Notified Ginger Cosby MD at 02/03/2024 10:58 AM. Laboratory Results WBC 7.04 10^3/uL (3.29-11.43) 02/03/24 08:47 RBC 4.15 10^6/uL (3.85-5.65) 02/03/24 08:47 Hgb 12.20 g/dL (11.27-16.99) 02/03/24 08:47 Hct 39.5 % (36-47) 02/03/24 08:47 MCV 95.2 fl (85-98) 02/03/24 08:47 MCH 29.4 pg (27-33) 02/03/24 08:47 MCHC 30.9 g/dL (30-55) 02/03/24 08:47 RDW 14.6 % (12.1-15.1) 02/03/24 08:47 Plt Count 172 10^3/cmm (157-399) 02/03/24 08:47 MPV 9.9 fL (7.4-10.4) 02/03/24 08:47 Neut % (Auto) 70.5 % 02/03/24 08:47 Lymph % (Auto) 16.9 % 02/03/24 08:47 [place] % (Auto) 7.1 % 02/03/24 08:47 Eos % (Auto) 4.1 % 02/03/24 08:47 Baso % (Auto) 0.7 % 02/03/24 08:47 Neut # (Auto) 4.96 10^3/uL (1.8-7.7) 02/03/24 08:47 Lymph # (Auto) 1.2 10^3/uL (0.8-4.8) 02/03/24 08:47 [place] # (Auto) 0.5 10^3/uL (0.2-0.9) 02/03/24 08:47 Eos # (Auto) 0.3 10^3/uL (0.0-0.8) 02/03/24 08:47 Baso # (Auto) 0.1 10^3/uL (0.0-0.1) 02/03/24 08:47 Nucleated RBC % (auto) 0 % 02/03/24 08:47 Nucleated RBCs # 0.0 /100WBC 02/03/24 08:47 PT 24.10 SECONDS (12.1-14.9) H 02/03/24 08:47 INR 2.08 (0.8-1.2) H 02/03/24 08:47 Sodium 135 mmol/L (136-145) L 02/03/24 08:47 Potassium 4.1 mmol/L (3.5-5.1) 02/03/24 08:47 Chloride 99 mmol/L (98-107) 02/03/24 08:47 Carbon Dioxide 27 mmol/L (22-29) 02/03/24 08:47 Anion Gap 13.1 (5-19) 02/03/24 08:47 BUN 18 mg/dL (6-20) 02/03/24 08:47 Creatinine 0.6 mg/dL (0.5-0.9) 02/03/24 08:47 GFR Calculation 103.0 mL/min (90-130) 02/03/24 08:47 Glucose 309 mg/dL (65-115) H 02/03/24 08:47 POC Glucose 290 mg/dL (70-110) H 02/03/24 09:32 Calculated Osmolality 294 mOsm/kg (285-295) 02/03/24 08:47 Calcium 9.1 mg/dL (8.5-10.5) 02/03/24 08:47 Total Bilirubin 3.6 mg/dL (0.15-1.2) H 02/03/24 08:47 AST 50 U/L (0-32) H 02/03/24 08:47 ALT 54 U/L (0-33) H 02/03/24 08:47 Alkaline Phosphatase 431 U/L (35-105) H 02/03/24 08:47 Total Protein 7.8 g/dL (6.6-8.7) 02/03/24 08:47 Albumin 3.5 g/dL (3.5-5.2) 02/03/24 08:47 Globulin 4.3 g/dL (1.3-4.6) 02/03/24 08:47 Lipase 86 U/L (13-60) H 02/03/24 08:47 Urine Color Yellow (Yellow) 02/03/24 10:13 Urine Appearance Clear (CLEAR) 02/03/24 10:13 Urine pH 5 (5-7) 02/03/24 10:13 Ur Specific [place] 1.015 (1.005-1.030) 02/03/24 10:13 Urine Protein Trace (Negative) 02/03/24 10:13 Urine Glucose (UA) Trace (Normal) H 02/03/24 10:13 Urine Ketones 1+ (Negative) H 02/03/24 10:13 Urine Blood Neg (Negative) 02/03/24 10:13 Urine Nitrate Negative (Negative) 02/03/24 10:13 Urine Bilirubin Neg (Negative) 02/03/24 10:13 Urine Urobilinogen 8 mg/dL (Negative) H 02/03/24 10:13 Ur Leukocyte Esterase 2+ (Negative) H 02/03/24 10:13 Urine RBC 0-4 /hpf (0-2) H 02/03/24 10:13 Urine WBC 40-55 /hpf (0-5) H 02/03/24 10:13 Ur Squamous Epith Cells 5-10 /hpf (0-5) H 02/03/24 10:13 Calcium Oxalate Crystal 0-4 /hpf H 02/03/24 10:13 Amorphous Sediment Not Reportable 02/03/24 10:13 Urine Bacteria Trace /hpf (NONE) 02/03/24 10:13 All radiology interpretation(s) finalized by discharge Discharge Plan Discharge Patient Disposition: Home Clinical Impression: Abdominal pain Condition: Stable Prescriptions: New hydrocodone-acetaminophen 5-325 mg tablet 1 tab PO Q6H PRN (Reason: pain) Qty: 14 0RF No Action acetaminophen [Tylenol] 325 mg tablet 325 mg PO QID PRN (Reason: Pain, Mild) hydrocodone-acetaminophen 10-325 mg tablet 1 tab PO Q8H PRN (Reason: pain) 7 Days Qty: 21 0RF warfarin 3 mg tablet 3 mg PO DAILY Qty: 30 2RF Protocol: Dose Management Condition: Tuesday Dose/Route: 3 mg Instruction: 1 x 3 mg tablet Condition: Tuesday Dose/Route: 3 mg Instruction: 1 x 3 mg tablet Condition: Tuesday Dose/Route: 3 mg Instruction: 1 x 3 mg tablet Condition: Tuesday Dose/Route: 3 mg Instruction: 1 x 3 mg tablet Condition: Dose/Route: 3 mg Instruction: 1 x 3 mg tablet Condition: Tuesday Dose/Route: 3 mg Instruction: 1 x 3 mg tablet Condition: Tuesday Dose/Route: 3 mg Instruction: 1 x 3 mg tablet Protocol Text: Adjustment Start Date: Tuesday01/30/24 INR Value: 31.8 Seconds INR Date: 01/30/24 Recheck Date: 02/03/24 cyclobenzaprine 10 mg tablet 10 mg PO TID 90 Days Qty: 270 1RF gabapentin 600 mg tablet 600 mg PO TID 90 Days Qty: 270 1RF metformin 500 mg tablet 500 mg PO DAILY 90 Days Qty: 90 1RF metoprolol tartrate 25 mg tablet 25 mg PO BID 30 Days Qty: 60 5RF pantoprazole 40 mg tablet,delayed release (DR/EC) 40 mg PO DAILY 90 Days Qty: 90 1RF (DME) left AFO brace See Rx Instructions .Route .MEDSUPPLY Qty: 1 0RF Rx Instructions: As directed (DME) off dip stand loader knee brace right See Rx Instructions .Route .MEDSUPPLY Qty: 1 0RF Rx Instructions: As directed tramadol 50 mg tablet 50 mg PO DAILY PRN (Reason: pain) 30 Days Qty: 30 0RF Discharge Orders: Discharge ED (Routine); Ordered 02/03/24 Ordered By: Ginger Cosby Referrals: Ncia Hernández MD [Primary Care Provider] - 1-3 days Discharge Diet: Advance as tolerated Discharge Activity: Resume usual activity Patient Instructions: Abdominal Pain (ED) Coding Level of Care Code ED Maintenance Controller for Taty Bajwa
[2024-02-03 08:57] LABS: Basophils # 0.1 10^3/uL (0.0-0.1); Basophils % 0.7 %; Eosinophils # 0.3 10^3/uL (0.0-0.8); Eosinophils % 4.1 %; Hematocrit 39.5 % (36-47); Lymphocytes # 1.2 10^3/uL (0.8-4.8); Lymphocytes % 16.9 %; Mean Corpuscular HGB Conc 30.9 g/dL (30-55); Mean Corpuscular Hemoglobin 29.4 pg (27-33); Mean Corpuscular Volume 95.2 fl (85-98); Mean Platelet Volume 9.9 fL (7.4-10.4); Monocytes # 0.5 10^3/uL (0.2-0.9); Monocytes % 7.1 %; Neutrophils # 4.96 10^3/uL (1.8-7.7); Neutrophils % 70.5 %; Nucleated Red Blood Cells % 0 %; Platelet Count 172 10^3/cmm (157-399); Red Blood Count 4.15 10^6/uL (3.85-5.65); Red Cell Distribution Width 14.6 % (12.1-15.1); White Blood Count 7.04 10^3/uL (3.29-11.43)
[2024-02-03 09:05] LABS: INR 2.08 (0.8-1.2)
[2024-02-03 09:13] LABS: Alanine Aminotransferase 54 U/L (0-33); Albumin Level 3.5 g/dL (3.5-5.2); Alkaline Phosphatase 431 U/L (35-105); Anion Gap 13.1 (5-19); Aspartate Amino Transferase 50 U/L (0-32); Blood Urea Nitrogen 18 mg/dL (6-20); Calcium 9.1 mg/dL (8.5-10.5); Carbon Dioxide 27 mmol/L (22-29); Chloride 99 mmol/L (98-107); Globulin 4.3 g/dL (1.3-4.6); Glucose 309 mg/dL (65-115); Lipase 86 U/L (13-60); Osmolality Calculated 294 mOsm/kg (285-295); Potassium 4.1 mmol/L (3.5-5.1); Sodium 135 mmol/L (136-145); Total Bilirubin 3.6 mg/dL (0.15-1.2); Total Protein 7.8 g/dL (6.6-8.7)
[2024-02-03] MEDS: tranexamic acid 1,000 mg/10mL SDV 1000 MG IRRIGATION (09:20)
[2024-02-03 09:36] LABS: Glucose Point of Care 290 mg/dL (70-110)
[2024-02-03] MEDS: ondansetron 2 mg/ML SDV 2 mL 4 MG IVP (09:49)
[2024-02-03] MEDS: morphine 4 mg/mL SDV 1 mL IVP (09:50)
--- NOTE | 2024-02-03 10:00 | PC.NURSE ---
After removing the dressing from the patients abdomen wound, I cleaned the area several times with 4x4's and sterile water. Dr. Cosby attempted to stop some of the bleeding with silver nitrate sticks. The bleeding continued, so he attempted to put 2 stitches in where the wound was bleeding from the most. The largest part of the bleeding did start to slow down but she was still oozing blood from her abdomen wound. Dr. Cosby ordered TXA to be put on sterile gauze and placed on the wound and taped down to see if that would help stop the oozing blood.
[2024-02-03] MEDS: iohexol 350 mg/mL 500 mL Btl (per mL) IV (10:15)
[2024-02-03 11:34] LABS: Bilirubin Urine Neg (Negative); Blood Urine Neg (Negative); Glucose Urine UA Trace (Normal); Ketones Urine 1+ (Negative); Leukocyte Esterase Urine 2+ (Negative); Nitrate Urine Negative (Negative); Protein Urine Trace (Negative); Specific Gravity, Urine 1.015 (1.005-1.030); Urine Appearance Clear (CLEAR); Urine Color Yellow (Yellow); Urobilinogen Urine 8 mg/dL (Negative); pH Urine 5 (5-7)
[2024-02-03 11:35] LABS: Add Urine Culture? Yes; Add Urine Microscopic? YES; Bacteria Urine TRACE /hpf; Calcium Oxalate Crystals Urine 0-4 /hpf; RBC Urine 0-4 /hpf (0-2); WBC Urine 40-55 /hpf (0-5)
== END 2024-02-03 11:48 | disposition home or self-care (01) ==
PROVIDERS: Emergency Provider Emergency Medicine; PCP Family Medicine
DX: R10.9 Unspecified abdominal pain (principal); Z79.01 Long term (current) use of anticoagulants; Z79.84 Long term (current) use of oral hypoglycemic drugs; Z87.891 Personal history of nicotine dependence; L76.22 Postprocedural hemorrhage of skin and subcutaneous tissue following other procedure
CPT/HCPCS: 12001; 36416; 74177; 80053; 81001; 82962; 83690; 85025; 85610; 87086; 96374; 96375; 99285; J2270; J2405; Q9967

== ENCOUNTER → 2024-02-06 10:13 | Outpatient (BNVA) | payer OTHER, SELFPAY | PROVIDERS: PCP Family Medicine; Visit Provider Family Medicine | DX: Z51.81 Encounter for therapeutic drug level monitoring (principal); Z79.01 Long term (current) use of anticoagulants | CPT/HCPCS: 85610 ==

== ENCOUNTER → 2024-02-13 09:12 | Outpatient (BNVA) | payer OTHER, SELFPAY | PROVIDERS: PCP Family Medicine; Referring Provider Family Medicine; Visit Provider Family Medicine | DX: E11.9 Type 2 diabetes mellitus without complications (principal); Z51.81 Encounter for therapeutic drug level monitoring; Z79.01 Long term (current) use of anticoagulants | CPT/HCPCS: 80053; 80061; 82962; 83036; 85610 ==

== ENCOUNTER → 2024-02-17 09:32 | Outpatient (BNVA) | payer OTHER, SELFPAY | PROVIDERS: PCP Family Medicine; Visit Provider Family Medicine | DX: R73.9 Hyperglycemia, unspecified (principal); Z51.81 Encounter for therapeutic drug level monitoring; Z79.01 Long term (current) use of anticoagulants | CPT/HCPCS: 82962; 85610 ==

== ENCOUNTER → 2024-02-21 08:41 | Outpatient (BNVA) | payer OTHER, SELFPAY | PROVIDERS: PCP Family Medicine; Visit Provider Family Medicine | DX: Z51.81 Encounter for therapeutic drug level monitoring (principal); Z79.01 Long term (current) use of anticoagulants | CPT/HCPCS: 85610 ==

== ENCOUNTER → 2024-02-24 09:01 | Outpatient (BNVA) | payer OTHER, SELFPAY | PROVIDERS: PCP Family Medicine; Referring Provider Family Medicine; Visit Provider Family Medicine | DX: Z79.01 Long term (current) use of anticoagulants (principal) | CPT/HCPCS: 85610 ==

== ENCOUNTER 2024-02-27 16:11 | Outpatient (CLI) | payer OTHER, SELFPAY ==
--- NOTE | 2024-02-27 16:30 | CT_ITS ---
WS: [id number] CT LEFT FEMUR, NONCONTRAST HISTORY: painful hardware Technique: All CT scans at [facility] use at least one of these dose optimization techniques: automated exposure control; mA and/or kV adjustment per patient size (includes targeted exams where dose is matched to clinical indication); or iterative reconstruction. DLP: 1003.54 mGy.cm COMPARISON: 01/31/2024 radiograph. Extensive plate and screw fixation throughout majority of the femur with the largest screw deposition in the femoral condyles. Long lateral compression plate through the entire length of the femur. There is a shorter plate along the medial distal femur. Extensive artifact through the bone and soft tissue from the metal. Extensive muscle atrophy. No soft tissue mass is identified. No significant joint effusion. The hardware appears intact with no fractures identified. No screw retraction. CT/CT femur LT wo con* [id number] IMPRESSION: 1. Extensive orthopedic hardware throughout the LEFT femur with causing signif icant artifact. 2. Severe muscle atrophy LEFT femur. 3. No soft tissue masses. 4. No fracture noted of the hardware or displacement of the screws.
== END 2024-02-27 16:12 | disposition home or self-care (01) ==
LOC: RAD 16:11
PROVIDERS: PCP Family Medicine; Visit Provider Physician Assistant
DX: T84.84XA Pain due to internal orthopedic prosthetic devices, implants and grafts, initial encounter (principal); X58.XXXA Exposure to other specified factors, initial encounter; M62.552 Muscle wasting and atrophy, not elsewhere classified, left thigh
CPT/HCPCS: 73700

== ENCOUNTER → 2024-02-28 09:39 | Outpatient (BNVA) | payer OTHER, SELFPAY | PROVIDERS: PCP Family Medicine; Referring Provider Family Medicine; Visit Provider Family Medicine | DX: Z51.81 Encounter for therapeutic drug level monitoring (principal); Z79.01 Long term (current) use of anticoagulants; R73.09 Other abnormal glucose | CPT/HCPCS: 82962; 85610 ==

== ENCOUNTER → 2024-03-06 17:00 | Outpatient (BNVA) | payer OTHER, SELFPAY | PROVIDERS: PCP Family Medicine; Referring Provider Family Medicine; Visit Provider Family Medicine | DX: Z79.01 Long term (current) use of anticoagulants (principal); Z51.81 Encounter for therapeutic drug level monitoring | CPT/HCPCS: 85610 ==

== ENCOUNTER → 2024-03-12 08:14 | Outpatient (BNVA) | payer OTHER, SELFPAY | PROVIDERS: PCP Family Medicine; Visit Provider Family Medicine | DX: Z51.81 Encounter for therapeutic drug level monitoring (principal); Z79.01 Long term (current) use of anticoagulants | CPT/HCPCS: 85610 ==

== ENCOUNTER → 2024-03-26 09:18 | Outpatient (BNVA) | payer OTHER, SELFPAY | PROVIDERS: PCP Family Medicine; Referring Provider Family Medicine; Visit Provider Family Medicine | DX: Z51.81 Encounter for therapeutic drug level monitoring (principal); Z79.01 Long term (current) use of anticoagulants | CPT/HCPCS: 85610 ==

== ENCOUNTER → 2024-03-30 09:59 | Outpatient (BNVA) | payer OTHER, SELFPAY | PROVIDERS: PCP Family Medicine; Referring Provider Family Medicine; Visit Provider Family Medicine | DX: Z51.81 Encounter for therapeutic drug level monitoring (principal); Z79.01 Long term (current) use of anticoagulants | CPT/HCPCS: 85610 ==

== ENCOUNTER → 2024-04-04 11:45 | Outpatient (BNVA) | payer OTHER, SELFPAY | PROVIDERS: PCP Family Medicine; Referring Provider Family Medicine; Visit Provider Family Medicine | DX: Z51.81 Encounter for therapeutic drug level monitoring (principal); Z79.01 Long term (current) use of anticoagulants | CPT/HCPCS: 85610 ==

== ENCOUNTER → 2024-04-16 09:21 | Outpatient (BNVA) | payer OTHER, SELFPAY | PROVIDERS: PCP Family Medicine; Visit Provider Family Medicine | DX: Z79.01 Long term (current) use of anticoagulants (principal); Z51.81 Encounter for therapeutic drug level monitoring | CPT/HCPCS: 85610 ==

== ENCOUNTER → 2024-04-19 08:27 | Outpatient (BNVA) | payer OTHER, SELFPAY | PROVIDERS: PCP Family Medicine; Visit Provider Family Medicine | DX: Z51.81 Encounter for therapeutic drug level monitoring (principal); Z79.01 Long term (current) use of anticoagulants | CPT/HCPCS: 85610 ==

== ENCOUNTER → 2024-05-23 11:58 | Outpatient (BNVA) | payer OTHER, SELFPAY | PROVIDERS: PCP Family Medicine; Visit Provider Family Medicine | DX: Z51.81 Encounter for therapeutic drug level monitoring (principal); Z79.01 Long term (current) use of anticoagulants | CPT/HCPCS: 85610 ==

== ENCOUNTER → 2024-05-29 10:24 | Outpatient (BNVA) | payer OTHER, SELFPAY | PROVIDERS: PCP Family Medicine; Referring Provider Family Medicine; Visit Provider Family Medicine | DX: Z51.81 Encounter for therapeutic drug level monitoring (principal); Z79.01 Long term (current) use of anticoagulants | CPT/HCPCS: 85610 ==

== ENCOUNTER → 2024-06-01 10:33 | Outpatient (BNVA) | payer OTHER, SELFPAY | PROVIDERS: PCP Family Medicine; Referring Provider Family Medicine; Visit Provider Family Medicine | DX: Z51.81 Encounter for therapeutic drug level monitoring (principal); Z79.01 Long term (current) use of anticoagulants | CPT/HCPCS: 85610 ==

== ENCOUNTER → 2024-06-04 13:54 | Outpatient (BNVA) | payer OTHER, SELFPAY | PROVIDERS: PCP Family Medicine; Referring Provider Family Medicine; Visit Provider Family Medicine | DX: Z51.81 Encounter for therapeutic drug level monitoring (principal); Z79.01 Long term (current) use of anticoagulants | CPT/HCPCS: 85610 ==

== ENCOUNTER → 2024-06-07 12:16 | Outpatient (BNVA) | payer OTHER, SELFPAY | PROVIDERS: PCP Family Medicine; Referring Provider Family Medicine; Visit Provider Family Medicine | DX: Z51.81 Encounter for therapeutic drug level monitoring (principal); Z79.01 Long term (current) use of anticoagulants | CPT/HCPCS: 85610 ==

== ENCOUNTER → 2024-06-11 12:58 | Outpatient (BNVA) | payer OTHER, SELFPAY | PROVIDERS: PCP Family Medicine; Referring Provider Family Medicine; Visit Provider Family Medicine | DX: Z51.81 Encounter for therapeutic drug level monitoring (principal); Z79.01 Long term (current) use of anticoagulants | CPT/HCPCS: 85610 ==

== ENCOUNTER → 2024-06-17 10:46 | Outpatient (BNVA) | payer OTHER, SELFPAY | PROVIDERS: PCP Family Medicine; Referring Provider Family Medicine; Visit Provider Family Medicine | DX: Z51.81 Encounter for therapeutic drug level monitoring (principal); Z79.01 Long term (current) use of anticoagulants | CPT/HCPCS: 85610 ==

== ENCOUNTER → 2024-06-20 11:13 | Outpatient (BNVA) | payer OTHER, SELFPAY | PROVIDERS: PCP Family Medicine; Visit Provider Family Medicine | DX: Z51.81 Encounter for therapeutic drug level monitoring (principal); Z79.01 Long term (current) use of anticoagulants | CPT/HCPCS: 85610 ==

== ENCOUNTER → 2024-06-28 11:54 | Outpatient (BNVA) | payer OTHER, SELFPAY | PROVIDERS: PCP Family Medicine; Visit Provider Family Medicine | DX: Z51.81 Encounter for therapeutic drug level monitoring (principal); Z79.01 Long term (current) use of anticoagulants | CPT/HCPCS: 85610 ==

== ENCOUNTER 2024-07-10 16:06 | Emergency (ER) | payer OTHER, SELFPAY ==
[2024-07-10 16:56] VITALS: BP 117/85; PULSE 81; RESP 18; TEMP 37.1; O2SAT 93; BMI 43.0
--- NOTE | 2024-07-10 18:30 | XRR_ITS ---
PROCEDURE INFORMATION: Exam: XR Abdomen Exam date and time: 07/10/2024 6:39 PM Age: 59 years old Clinical indication: Abdominal pain; Acute; Prior surgery; Surgery date: 1-6 months; Surgery type: Biliary drain ivc filtet gb lt hip; Additional info: Ruq pain, recent biliary drain replaced TECHNIQUE: Imaging protocol: Radiologic exam of the abdomen. Views: Frontal supine view of the abdomen. 1 View. COMPARISON: CT abdomen pelvis w con* [id number] 02/03/2024 10:17 AM FINDINGS: Gastrointestinal tract: Nonobstructive bowel-gas pattern. Vasculature: IVC filter is present. Short stent projects over the right upper quadrant. Plate and screw fixation of the left proximal femur. Bones/joints: No visible acute fracture. XR/XR KUB portable [id number] IMPRESSION: No acute findings. COMMENTS: For patients with an IVC filter, recommend assessment for a management plan for the patient's IVC filter. If there is no established management plan, recommend referral to an interventional clinician on a nonemergent basis for evaluation.
--- NOTE | 2024-07-10 18:37 | CTR_ITS ---
PROCEDURE INFORMATION: Exam: CT Abdomen And Pelvis With Contrast Exam date and time: 07/10/2024 7:11 PM Age: 59 years old Clinical indication: Abdominal pain; Additional info: Ruq pain, recent replacement of biliary drain TECHNIQUE: Imaging protocol: Computed tomography of the abdomen and pelvis with contrast. Radiation optimization: All CT scans at this facility use at least one of these dose optimization techniques: automated exposure control; mA and/or kV adjustment per patient size (includes targeted exams where dose is matched to clinical indication); or iterative reconstruction. Contrast material: OMNI 350; Contrast volume: 100 ml; Contrast route: INTRAVENOUS (IV); COMPARISON: CT abdomen pelvis w con* [id number] 02/03/2024 10:17 AM RADIATION DOSE METRICS: Total DLP (mGy-cm): 1031 FINDINGS: Lungs: Peribronchovascular consolidative opacities bilateral posterior lower lobes, may reflect combination of atelectasis, and/or aspiration or infiltrate. Liver: Percutaneous biliary drainage catheter terminates in right hepatic lobe bile duct. 2.4 cm linear hypodensity within the hepatic parenchyma just inferior to the drainage catheter tract, series 3, image 25. Expected postprocedural soft tissue swelling and/or small hematoma within the right lateral abdominal wall soft tissues the drainage catheter tract. Additional small stent in the region of the gallbladder fossa extending towards the albino hepatis is unchanged. Degree of intrahepatic bile duct dilation is similar to 02/03/2024 CT. Patient is status post cholecystectomy. Gallbladder and biliary ducts: See Liver finding. Pancreas: Pancreatic atrophy. No main duct dilation. Spleen: Few small peripheral wedge-shaped areas of hypoenhancement in the spleen, largest measures up to 2.9 cm, consistent with small splenic infarcts. Splenomegaly. Adrenal glands: No nodules. Kidneys and ureters: No hydroureteronephrosis or nephroureterolithiasis. Mild bilateral perinephric fluid/stranding, slightly increased from 02/03/2024 Stomach and bowel: No bowel obstruction. Moderate colonic stool burden. Appendix: Normal appendix. Intraperitoneal space: Unremarkable. No free air. No significant fluid collection. Vasculature: IVC filter. No aortic aneurysm. Moderate aortoiliac atherosclerosis. Lymph nodes: No enlarged lymph nodes. Urinary bladder: Mild bladder wall prominence, most likely related to underdistention. Reproductive: Unremarkable as visualized. Bones/joints: No acute fracture. 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 Degenerative changes. Plate and screw fixation of the left proximal femur. Soft tissues: Rectus diastasis move with thinning of the overlying subcutaneous tissues, similar to prior. There are 2 right of midline lower ventral abdominal wall hernias, the larger hernia is located caudally and contains nondilated loop of small bowel, unchanged from 02/03/2024. The smaller hernias located cranially and contains a very short segment of nondilated small bowel. No evidence of resultant bowel obstruction or inflammation to suggest strangulation. CT/CT abdomen pelvis w con* [id number] IMPRESSION: 1. Percutaneous biliary drainage catheter terminates in the expected region of a right right hepatic lobe bile duct. Small linear hypodensity within the hepatic parenchyma just inferior to the drainage catheter tract, likely sequela of hepatic parenchymal injury, indeterminate chronicity, appears to be subjacent to an old percutaneous drainage catheter tract, correlate clinically. Expected swelling and/or small hematoma within the right lateral abdominal wall soft tissues the drainage catheter tract. Similar degree of intrahepatic bile duct dilation compared to 02/03/2024 exam. 2. New few small peripheral wedge-shaped areas of hypoenhancement in the spleen, largest measures up to 2.9 cm, consistent with small splenic infarcts. 3. Mild bilateral perinephric fluid/stranding, slightly increased from 02/03/2024 Suspect chronic/senescent, consider correlation with urinalysis to exclude infection. 4. Peribronchovascular consolidative opacities bilateral posterior lower lobes, may reflect combination of atelectasis, and/or aspiration or infiltrate. 5. Similar ventral abdominal wall hernias without evidence of small bowel obstruction. COMMENTS: For patients with an IVC filter, recommend assessment for a management plan for the patient's IVC filter. If there is no established management plan, recommend referral to an interventional clinician on a nonemergent basis for evaluation.
--- NOTE | 2024-07-10 18:42 | ED_ITS ---
HPI - General Adult 2 General: Chief complaint: General Medical Stated complaint: liver tube pain Time Seen by Provider: 07/10/24 18:14 Source: patient Mode of arrival: wheelchair Limitations: no limitations History of Present Illness: Patient is a 59-year-old female who presents to the emergency department by privately in wheelchair for right upper quadrant pain for the past few days. She has an extensive history of botched gallbladder surgery and has had subsequent biliary drains placed, most recently had 1 replaced in the emergency department last Tuesday. She currently has appointment with interventional radiology for another exploratory of surgery, but notes that the right upper quadrant pain has been too severe despite taking Dilaudid and hydrocodone at home. Other than the pain she has no new symptoms to report. Specifically she is not running any fevers, no chills, no nausea or vomiting, no changes in bowel or bladder, and no chest pain or shortness of breath. She states she is here because [facility] requested imaging and labs to rule out any acute pathology. Patient's vitals are unremarkable at this time. 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 #1 ea 07/29/23 cyclobenzaprine 10 mg tablet 10 mg PO TID 90 days #270 tabs 01/19/24 gabapentin 600 mg tablet 600 mg PO TID 90 days #270 tabs 01/19/24 pantoprazole 40 mg tablet,delayed 40 mg PO DAILY 90 days #90 tabs 01/19/24 release left AFO brace #1 ea 01/31/24 metformin 500 mg tablet 500 mg PO BIDWMEAL 90 days #180 02/13/24 tabs warfarin 4 mg tablet 4 mg PO DAILY #30 tabs 02/28/24 warfarin 5 mg tablet 5 mg PO DAILY #30 tabs 04/12/24 naloxone 4 mg/actuation nasal 4 mg intranasal Q2M PRN opioid 05/29/24 spray (Narcan) overdose #2 ea warfarin 3 mg tablet 3 mg PO DAILY #30 tabs 05/29/24 hydromorphone 4 mg tablet 4 mg PO BID PRN pain 30 days #60 06/20/24 (Dilaudid) tabs miscellaneous medical supply See Rx Instructions miscellaneous 06/20/24 .COMPLEX #1 ea hydrocodone 10 mg-acetaminophen 1 tab PO Q8H PRN pain 7 days #21 06/28/24 325 mg tablet tabs Allergies Allergy/AdvReac Type Severity Reaction Status Date / Time pork derived (porcine) Allergy Intermediate sikh Verified 06/20/24 11:01 reasons Alpha-Gal Allergy unknown Verified 06/20/24 11:01 (Smpihxacr-Tchui-8,3-Gala shellfish derived AdvReac Intermediate ADR-Confusi Verified 06/20/24 11:01 on Review of Systems 2 General: Reports: 10 or more systems reviewed and unremarkable except in HPI and below Const: Denies: fever(s), chills, change in appetite, change in weight or diaphoresis ENMT: Denies: throat pain or hoarseness Card: Denies: chest pain, palpitations or lightheadedness Resp: Denies: dyspnea, productive cough or wheezing GI: Reports: abdominal pain; Denies: nausea, vomiting, diarrhea, constipation, bloating, change in stool character or hematochezia : Denies: flank pain, difficulty voiding, dysuria, urinary frequency or urinary urgency Musc: Reports: back pain; Denies: neck pain Skin/Breast: Denies: rash or new lesions Neuro: Denies: headache(s) or dizziness PFSH ED 2 PFSH: Medical History Allergy to alpha-gal No pertinent family history Surgical History History of orthopedic surgery Left femur fracture repair S/P aneurysm repair Hepatic aneurysm with stent placed History of abdominal surgery Bile duct repair, repair of bowel injury Hx of cholecystectomy Family History Father Hypertension Denies family history of Diabetes Clotting disorder Bleeding disorder Cancer Stroke Social History Smoking and tobacco/nicotine status: former use of tobacco/nicotine Alcohol intake: never Female Reproductive History: Para: 2 Spontaneous abortions: Yes (1) Physical Exam 2 Const: COMMON NORMALS: no acute distress, patient oriented x3, no limitations and alert GENERAL APPEARANCE: cooperative NUTRITIONAL APPEARANCE: obese morbidly obese HENMT: COMMON NORMALS: normocephalic and atraumatic HEAD & SCALP: n ormocephalic and atraumatic Eye: COMMON NORMALS: EOMs intact bilaterally, conjunctivae normal and no scleral icterus CONJUNCTIVA: Yes conjunctivae normal Neck/C-Spine: COMMON NORMALS: full ROM and no meningeal signs Resp: COMMON NORMALS: normal respiratory effort, No retractions, No use of accessory muscles and clear to auscultation bilaterally AUSCULTATION: clear to auscultation bilaterally Cardio: COMMON NORMALS: regular rate, regular rhythm, S1 normal heart sound present, S2 normal heart sound present, No gallops present (Cardio), No murmurs present (Cardio) and No rub (Cardio) RATE: regular rate RHYTHM: regular rhythm HEART SOUNDS: S1 normal heart sound present and S2 normal heart sound present GI: COMMON NORMALS: Soft to palpation INSPECTION: Yes central obesity P ALPATION: Yes Soft to palpation OTHER: Drain right upper quadrant, draining bilious material. Insertion site without any complications. She does have reproducible right upper quadrant tenderness to palpation that does extend around to the back. No palpable mass. Extremity: COMMON NORMALS: normal to inspection and full ROM Neuro: COMMON NORMALS: patient oriented x3, moves all extremities, no focal motor deficits and no sensory deficits noted SENSORIUM/ORIENTATION: Yes alert MENINGEAL SIGNS: Yes no meningeal signs Skin: COMMON NORMALS: no rashes or lesions noted GENERAL SKIN EXAM: no rashes or lesions noted Course 2 Vital Signs: Vital signs: Vital Signs Temperature 98.8 F 07/10/24 16:56 Pulse Rate 81 07/10/24 21:00 Respiratory Rate 17 07/10/24 20:00 Blood Pressure 157/118 07/10/24 21:00 Pulse Oximetry 92 07/10/24 21:00 Oxygen Delivery Me thod Room Air 07/10/24 21:00 MDM - General Adult Medical Decision Making This patient has extensive history of biliary surgery, appears that 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 She is followed by [facility] interventional radiology, where she recently had a new biliary catheter placed over the weekend, and her complaint today in the ER was worsening of pain. She had also arrived stating that they needed imaging and labs done to be sent to [facility]. Labs showed increase in total bilirubin, patient states it was 1.9 over the weekend, it is up to 5.9 now. Otherwise the rest of her labs were normal or improved from prior, including an INR 1.35 and a PT of 17. Urinalysis does show evidence of a urinary tract infection. X-ray was unremarkable, however a CT essentially nondiagnostic in terms of why she is having increased pain. Potentially there could be a hepatic parenchymal injury adjacent to a previous drainage catheter tract, but this is of unknown onset. I spoke with Dr. Odell, interventional radiologist at [facility] where there she is well aware of the patient's case. After reviewing imaging and labs, Dr. Odell is unable to determinethe urgency with her condition without being able to see her CT, but agrees that based on her presentation and normal vitals and clinical stability, if patient is electing to travel versus privately owned vehicle they will see her tomorrow for further evaluation which could potentially include an MRCP to evaluate for any biliary leakage. I had shared decision making discussion with patient and in the room, who adamantly elects to travel via privately owned vehicle as I do not wish for admission here at this time. Patient has pain control at home with hydrocodone and Dilaudid, she is reporting mild increase in pain here of which we will give morphine prior to discharge. We will also treat with antibiotics for the urinary tract infection. Patient is given a disc of her imaging to take up with her to [facility] interventional radiology. In the meantime, if patient is experiencing increase in pain or other concerning symptoms prior to presenting tomorrow, she is instructed to return to the emergency department. Patient and agree with the plan at this time and will be discharged home. I did discuss this case with Dr. Cosby. Lab Data 07/10/24 18:54 07/10/24 18:54 Radiology Impressions KUB X-Ray 07/10/24 18:30 IMPRESSION: No acute findings. COMMENTS: For patients with an IVC filter, recommend assessment for a management plan for the patient's IVC filter. If there is no established management plan, recommend referral to an interventional clinician on a nonemergent basis for evaluation. Abdomen/Pelvis CT 07/10/24 18:37 IMPRESSION: 1. Percutaneous biliary drainage catheter terminates in the expected region of a right right hepatic lobe bile duct. Small linear hypodensity within the hepatic parenchyma just inferior to the drainage catheter tract, likely sequela of hepatic parenchymal injury, indeterminate chronicity, appears to be subjacent to an old percutaneous drainage catheter tract, correlate clinically. Expected swelling and/or small hematoma within the right lateral abdominal wall soft tissues the drainage catheter tract. Similar degree of intrahepatic bile duct dilation compared to 02/03/2024 exam. 2. New few small peripheral wedge-shaped areas of hypoenhancement in the spleen, largest measures up to 2.9 cm, consistent with small splenic infarcts. 3. Mild bilateral perinephric fluid/stranding, slightly increased from 02/03/2024 Suspect chronic/senescent, consider correlation with urinalysis to exclude infection. 4. Peribronchovascular consolidative opacities bilateral posterior lower lobes, may reflect combination of atelectasis, and/or aspiration or infiltrate. 5. Similar ventral abdominal wall hernias without evidence of small bowel obstruction. COMMENTS: For patients with an IVC filter, recommend assessment for a management plan for the patient's IVC filter. If there is no established management plan, recommend referral to an interventional clinician on a nonemergent basis for evaluation. Laboratory Results WBC 8.45 10^3/uL (3.29-11.43) 07/10/24 18:54 RBC 4.48 10^6/uL (3.85-5.65) 07/10/24 18:54 Hgb 12.10 g/dL (11.27-16.99) 07/10/24 18:54 Hct 40.6 % (36-47) 07/10/24 18:54 MCV 90.6 fl (85-98) 07/10/24 18:54 MCH 27.0 pg (27-33) 07/10/24 18:54 MCHC 29.8 g/dL (30-55) L 07/10/24 18:54 RDW 15.9 % (12.1-15.1) H 07/10/24 18:54 Plt Count 210 10^3/cmm (157-399) 07/10/24 18:54 MPV 9.5 fL (7.4-10.4) 07/10/24 18:54 Neut % (Auto) 73.6 % 07/10/24 18:54 Lymph % (Auto) 15.0 % 07/10/24 18:54 [place] % (Auto) 6.5 % 07/10/24 18:54 Eos % (Auto) 3.9 % 07/10/24 18:54 Baso % (Auto) 0.5 % 07/10/24 18:54 Neut # (Auto) 6.22 10^3/uL (1.8-7.7) 07/10/24 18:54 Lymph # (Auto) 1.3 10^3/uL (0.8-4.8) 07/10/24 18:54 [place] # (Auto) 0.6 10^3/uL (0.2-0.9) 07/10/24 18:54 Eos # (Auto) 0.3 10^3/uL (0.0-0.8) 07/10/24 18:54 Baso # (Auto) 0.0 10^3/uL (0.0-0.1) 07/10/24 18:54 Nucleated RBC % (auto) 0 % 07/10/24 18:54 Nucleated RBCs # 0.0 /100WBC 07/10/24 18:54 PT 17.10 SECONDS (12.1-14.9) H 07/10/24 18:54 INR 1.35 (0.8-1.2) H 07/10/24 18:54 Sodium 136 mmol/L (136-145) 07/10/24 18:54 Potassium 3.8 mmol/L (3.5-5.1) 07/10/24 18:54 Chloride 99 mmol/L (98-107) 07/10/24 18:54 Carbon Dioxide 25 mmol/L (22-29) 07/10/24 18:54 Anion Gap 15.8 (5-19) 07/10/24 18:54 BUN 18 mg/dL (6-20) 07/10/24 18:54 Creatinine 0.7 mg/dL (0.5-0.9) 07/10/24 18:54 GFR Calculation 85.9 mL/min (90-130) L 07/10/24 18:54 Glucose 109 mg/dL (65-115) 07/10/24 18:54 Calculated Osmolality 284 mOsm/kg (285-295) L 07/10/24 18:54 Calcium 9.1 mg/dL (8.5-10.5) 07/10/24 18:54 Total Bilirubin 5.9 mg/dL (0.15-1.2) H 07/10/24 18:54 AST 70 U/L (0-32) H 07/10/24 18:54 ALT 47 U/L (0-33) H 07/10/24 18:54 Alkaline Phosphatase 600 U/L (35-105) H 07/10/24 18:54 Total Protein 8.7 g/dL (6.6-8.7) 07/10/24 18:54 Albumin 4.0 g/dL (3.5-5.2) 07/10/24 18:54 Globulin 4.7 g/dL (1.3-4.6) H 07/10/24 18:54 Lipase 24 U/L (13-60) 07/10/24 18:54 Urine Color M[place]le[place]an (Yellow) A 07/10/24 19:46 Urine Appearance Cloudy (CLEAR) A 07/10/24 19:46 Urine pH 5.5 (5-7) 07/10/24 19:46 Ur Specific [place] 1.054 (1.005-1.030) H 07/10/24 19:46 Urine Protein 1+ (Negative) A 07/10/24 19:46 Urine Glucose (UA) Negative (Normal) 07/10/24 19:46 Urine Ketones Negative (Negative) 07/10/24 19:46 Urine Blood Negative (Negative) 07/10/24 19:46 Urine Nitrate Not Reportable 07/10/24 19:46 Urine Bilirubin 3+ (Negative) H 07/10/24 19:46 Urine Urobilinogen 2.0 mg/dL (Negative) H 07/10/24 19:46 Ur Leukocyte Esterase 2+ (Negative) A 07/10/24 19:46 Urine RBC 0-2 /hpf (0-2) 07/10/24 19:46 Urine WBC 21-50 /hpf (0-5) H 07/10/24 19:46 Ur Squamous Epith Cells 21-50 /hpf (0-5) 07/10/24 19:46 Amorphous Sediment Not Reportable 07/10/24 19:46 Urine Bacteria 2+ /hpf (NONE) H 07/10/24 19:46 Hyaline Casts 16.96 /lpf 07/10/24 19:46 All radiology interpretation(s) finalized by discharge Discharge Plan Discharge Patient Disposition: Home Clinical Impression: Abdominal pain, RUQ, Total bilirubin, elevated, Hepatic artery aneurysm Condition: Stable Prescriptions: No Action acetaminophen [Tylenol] 325 mg tablet 325 mg PO QID PRN (Reason: Pain, Mild) cyclobenzaprine 10 mg tablet 10 mg PO TID 90 Days Qty: 270 1RF gabapentin 600 mg tablet 600 mg PO TID 90 Days Qty: 270 1RF pantoprazole 40 mg tablet,delayed release (DR/EC) 40 mg PO DAILY 90 Days Qty: 90 1RF (DME) left AFO brace See Rx Instructions .Route .MEDSUPPLY Qty: 1 0RF Rx Instructions: As directed metformin 500 mg tablet 500 mg PO BIDWMEAL 90 Days Qty: 180 1RF warfarin 4 mg tablet 4 mg PO DAILY Qty: 30 0RF Protocol: Dose Management Condition: Tuesday Dose/Route: 3 mg Instruction: 1 x 3 mg tablet Condition: Tuesday Dose/Route: 4 mg Instruction: 1 x 4 mg tablet Condition: Tuesday Dose/Route: 3 mg Instruction: 1 x 3 mg tablet Condition: Tuesday Dose/Route: 4 mg Instruction: 1 x 4 mg tablet Condition: Dose/Route: 3 mg Instruction: 1 x 3 mg tablet Condition: Tuesday Dose/Route: 4 mg Instruction: 1 x 4 mg tablet Condition: Tuesday Dose/Route: 3 mg Instruction: 1 x 3 mg tablet Protocol Text: Adjustment Start Date: 06/28/24 INR Value: 46.30 SECONDS INR Date: 06/28/24 Recheck Date: 07/05/24 warfarin 3 mg tablet 3 mg PO DAILY Qty: 30 2RF Protocol: Dose Management Condition: Tuesday Dose/Route: 3 mg Instruction: 1 x 3 mg tablet Condition: Tuesday Dose/Route: 4 mg Instruction: 1 x 4 mg tablet Condition: Tuesday Dose/Route: 3 mg Instruction: 1 x 3 mg tablet Condition: Tuesday Dose/Route: 4 mg Instruction: 1 x 4 mg tablet Condition: Dose/Route: 3 mg Instruction: 1 x 3 mg tablet Condition: Tuesday Dose/Route: 4 mg Instruction: 1 x 4 mg tablet Condition: Tuesday Dose/Route: 3 mg Instruction: 1 x 3 mg tablet Protocol Text: Adjustment Start Date: 06/28/24 INR Value: 46.30 SECONDS INR Date: 06/28/24 Recheck Date: 07/05/24 naloxone [Narcan] 4 mg/actuation spray,non-aerosol 4 mg intranasal Q2M PRN (Reason: opioid overdose) Qty: 2 0RF Rx Instructions: spray 1 dose into ONE nostril (DME) 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 See Rx Instructions .Route .MEDSUPPLY Qty: 1 0RF Rx Instructions: As directed metoprolol tartrate 25 mg tablet 12.5 mg PO BID hydromorphone [Dilaudid] 4 mg tablet 4 mg PO BID PRN (Reason: pain) 30 Days Qty: 60 0RF miscellaneous medical supply Misc See Rx Instructions miscellaneous .COMPLEX Qty: 1 0RF Rx Instructions: electric hospital bed as directed; hydrocodone-acetaminophen 10-325 mg tablet 1 tab PO Q8H PRN (Reason: pain) 7 Days Qty: 21 0RF Rx Instructions: For breakthrough pain between the Dilaudid warfarin 5 mg tablet 5 mg PO DAILY Qty: 30 0RF Protocol: Dose Management Condition: Tuesday Dose/Route: 3 mg Instruction: 1 x 3 mg tablet Condition: Tuesday Dose/Route: 4 mg Instruction: 1 x 4 mg tablet Condition: Tuesday Dose/Route: 3 mg Instruction: 1 x 3 mg tablet Condition: Tuesday Dose/Route: 4 mg Instruction: 1 x 4 mg tablet Condition: Dose/Route: 3 mg Instruction: 1 x 3 mg tablet Condition: Tuesday Dose/Route: 4 mg Instruction: 1 x 4 mg tablet Condition: Tuesday Dose/Route: 3 mg Instruction: 1 x 3 mg tablet Protocol Text: Adjustment Start Date: 06/28/24 INR Value: 46.30 SECONDS INR Date: 06/28/24 Recheck Date: 07/05/24 Discharge Orders: Discharge ED (Routine); Ordered 07/10/24 Ordered By: Lionel Bedolla Referrals: Nica Hernández MD [Primary Care Provider] - Patient Instructions: Abdominal Pain (ED), Opioid Safety, Pain Management Activity Restrictions/Additional Instructions: Follow-up with interventional radiology at [facility] tomorrow as discussed, bring CD with imaging with you. Continue pain medications at home. Prior to tomorrow if you develop any acute worsening of your pain or other concerning symptoms please return to the emergency department immediately. Coding Level of Care Code ED Publicity Consultant for Taty Bajwa
[2024-07-10 19:05] LABS: Basophils % 0.5 %; Eosinophils # 0.3 10^3/uL (0.0-0.8); Eosinophils % 3.9 %; Hematocrit 40.6 % (36-47); Lymphocytes # 1.3 10^3/uL (0.8-4.8); Mean Corpuscular HGB Conc 29.8 g/dL (30-55); Mean Corpuscular Volume 90.6 fl (85-98); Mean Platelet Volume 9.5 fL (7.4-10.4); Monocytes # 0.6 10^3/uL (0.2-0.9); Monocytes % 6.5 %; Neutrophils # 6.22 10^3/uL (1.8-7.7); Neutrophils % 73.6 %; Nucleated Red Blood Cells % 0 %; Platelet Count 210 10^3/cmm (157-399); Red Blood Count 4.48 10^6/uL (3.85-5.65); Red Cell Distribution Width 15.9 % (12.1-15.1); White Blood Count 8.45 10^3/uL (3.29-11.43)
[2024-07-10] MEDS: iohexol 350 mg/mL 500 mL Btl (per mL) IV (19:15)
[2024-07-10 19:17] LABS: INR 1.35 (0.8-1.2)
[2024-07-10 19:22] LABS: Alanine Aminotransferase 47 U/L (0-33); Alkaline Phosphatase 600 U/L (35-105); Anion Gap 15.8 (5-19); Aspartate Amino Transferase 70 U/L (0-32); Blood Urea Nitrogen 18 mg/dL (6-20); Calcium 9.1 mg/dL (8.5-10.5); Carbon Dioxide 25 mmol/L (22-29); Chloride 99 mmol/L (98-107); Creatinine Clr Calc Pharmacy 100.5362; Globulin 4.7 g/dL (1.3-4.6); Glomerular Filtration Rate 85.9 mL/min (90-130); Glucose 109 mg/dL (65-115); Lipase 24 U/L (13-60); Osmolality Calculated 284 mOsm/kg (285-295); Potassium 3.8 mmol/L (3.5-5.1); Sodium 136 mmol/L (136-145); Total Bilirubin 5.9 mg/dL (0.15-1.2); Total Protein 8.7 g/dL (6.6-8.7)
[2024-07-10 20:00] VITALS: BP 107/74; PULSE 88; RESP 17; O2SAT 94
[2024-07-10 20:15] LABS: Bilirubin Urine 3+ (Negative); Blood Urine Negative (Negative); Glucose Urine UA Negative (Normal); Ketones Urine Negative (Negative); Leukocyte Esterase Urine 2+ (Negative); Protein Urine 1+ (Negative); Urine Appearance Cloudy (CLEAR); pH Urine 5.5 (5-7)
[2024-07-10 20:19] LABS: Add Urine Microscopic? YES; Bacteria Urine 2+ /hpf; Hyaline Casts Urine 16.96 /lpf; RBC Urine 0-2 /hpf (0-2); Squamous Epithelial Cell Urine 21-50 /hpf (0-5); WBC Urine 21-50 /hpf (0-5)
[2024-07-10 20:35] LABS: Specific Gravity, Urine 1.054 (1.005-1.030); Urine Color Orange (Yellow)
[2024-07-10 20:37] LABS: Add Urine Culture? No
[2024-07-10 21:00] VITALS: BP 157/118; PULSE 81; O2SAT 92
[2024-07-10 21:40] VITALS: RESP 17
[2024-07-10] MEDS: morphine 4 mg/mL SDV 1 mL IVP (21:40)
[2024-07-10 21:42] VITALS: BP 145/105; PULSE 87; O2SAT 93
[2024-07-10 22:10] VITALS: BP 101/70; PULSE 77; O2SAT 90
== END 2024-07-10 22:10 | disposition home or self-care (01) ==
PROVIDERS: Emergency Provider Physician Assistant; PCP Family Medicine
DX: R10.11 Right upper quadrant pain (principal); R17 Unspecified jaundice; I72.8 Aneurysm of other specified arteries; Z79.01 Long term (current) use of anticoagulants; Z79.84 Long term (current) use of oral hypoglycemic drugs; Z87.891 Personal history of nicotine dependence
CPT/HCPCS: 74018; 74177; 80053; 81001; 83690; 85025; 85610; 96374; 99285; J2270

== ENCOUNTER 2024-07-29 17:14 | Inpatient (IN) | payer OTHER, SELFPAY ==
[2024-07-29] VITALS (7 sets, daily range): BP systolic 100–135; BP diastolic 43–82; PULSE 81–89; RESP 16–17; TEMP 38.3–38.6; O2SAT 90–94; BMI 42.4; BMI 42.0
[2024-07-29 17:42] LABS: Basophils # 0.1 10^3/uL (0.0-0.1); Basophils % 0.3 %; Eosinophils # 0.1 10^3/uL (0.0-0.8); Eosinophils % 0.8 %; Hematocrit 38.8 % (36-47); Lymphocytes # 0.9 10^3/uL (0.8-4.8); Lymphocytes % 5.4 %; Mean Corpuscular HGB Conc 30.2 g/dL (30-55); Mean Corpuscular Volume 86.2 fl (85-98); Mean Platelet Volume 9.5 fL (7.4-10.4); Monocytes # 1.4 10^3/uL (0.2-0.9); Monocytes % 8.8 %; Neutrophils # 13.33 10^3/uL (1.8-7.7); Neutrophils % 84.2 %; Nucleated Red Blood Cells % 0 %; Platelet Count 214 10^3/cmm (157-399); Red Cell Distribution Width 16.7 % (12.1-15.1); White Blood Count 15.82 10^3/uL (3.29-11.43)
[2024-07-29 17:59] LABS: Alanine Aminotransferase 18 U/L (0-33); Albumin Level 3.7 g/dL (3.5-5.2); Alkaline Phosphatase 376 U/L (35-105); Anion Gap 14.8 (5-19); Aspartate Amino Transferase 18 U/L (0-32); Blood Urea Nitrogen 13 mg/dL (6-20); Calcium 8.6 mg/dL (8.5-10.5); Carbon Dioxide 26 mmol/L (22-29); Chloride 97 mmol/L (98-107); Creatinine Clr Calc Pharmacy 99.7833; Globulin 3.2 g/dL (1.3-4.6); Glomerular Filtration Rate 85.9 mL/min (90-130); Glucose 173 mg/dL (65-115); Osmolality Calculated 282 mOsm/kg (285-295); Potassium 3.8 mmol/L (3.5-5.1); Sodium 134 mmol/L (136-145); Total Bilirubin 3.2 mg/dL (0.15-1.2); Total Protein 6.9 g/dL (6.6-8.7)
--- NOTE | 2024-07-29 18:10 | CTR_ITS ---
PROCEDURE INFORMATION: Exam: CT Abdomen And Pelvis With Contrast Exam date and time: 07/29/2024 7:23 PM Age: 59 years old Clinical indication: Pain and abnormal findings; Abnormal lab test; Abdominal pain; Localized; Right upper quadrant (ruq); Prior surgery; Surgery date: 3-7 days post-operative; Surgery type: Biliary stent placed 07/24/2024. Gb. Hepatic aneurysm repair. Patient HX: C/O ruq pain with fever and elevated wbc. Biliary stent placed 07/24/2024. No oral contrast given for this exam. ; Additional info: Post op biliary drains, fever TECHNIQUE: Imaging protocol: Computed tomography of the abdomen and pelvis with contrast. Radiation optimization: All CT scans at this facility use at least one of these dose optimization techniques: automated exposure control; mA and/or kV adjustment per patient size (includes targeted exams where dose is matched to clinical indication); or iterative reconstruction. Contrast material: OMNI 350; Contrast volume: 100 ml; Contrast route: INTRAVENOUS (IV); COMPARISON: CT abdomen pelvis w con* [id number] 07/10/2024 7:11 PM RADIATION DOSE METRICS: Total DLP (mGy-cm): 1036.55 FINDINGS: Tubes, catheters and devices: There are [address] in place. Posteriorly positioned biliary drain terminates along the medial aspect of the right hepatic lobe. Minimal hazy fluid stranding is present in this region. Anteriorly positioned biliary drain terminates at the junction of the distal common bile duct and duodenum. There is air and fluid in the distal common bile duct surrounding the biliary drain measuring 2.4 x 0.7 cm in the transverse/AP dimensions. Heart: Cardiomegaly. Liver: Minimal inhomogeneous enhancement of the inferior tip of the liver. Gallbladder and biliary ducts: There is air in the biliary tree. Gallbladder not visualized. Pancreas: Normal. No ductal dilation. Spleen: The spleen is enlarged measuring 15.9 cm. Adrenal glands: Normal. No mass. Kidneys and ureters: Normal. No hydronephrosis. Stomach and bowel: Unremarkable. No obstruction. No mucosal thickening. Appendix: No evidence of appendicitis. Intraperitoneal space: A small amount of free intraperitoneal fluid and stranding surrounds the liver. Vasculature: There is an IVC filter in place. Lymph nodes: Unremarkable. No enlarged lymph nodes. Urinary bladder: Urinary bladder wall thickening could be due to cystitis or lack of distention. Reproductive: Unremarkable as visualized. 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 There is resultant grade 1 spondylolisthesis of L5 on S1 with severe bilateral neural foramina narrowing and possible compression of the exiting L5 nerve roots. ORIF proximal left femur. Soft tissues: Edema is present in the soft tissues surrounding the biliary drains. Midline ventral lower abdominal hernia contains small bowel loops without evidence for strangulation or obstruction. CT/CT abdomen pelvis w con* [id number] IMPRESSION: 1. Posteriorly positioned biliary drain terminates along the medial aspect of the right hepatic lobe. There is minimal hazy fluid stranding at this location raising concern for residual infection or inflammation. 2. Anteriorly positioned biliary drain terminates at the junction of the distal common bile duct and duodenum. There is air and fluid in the distal common bile duct surrounding the biliary drain. 3. Minimal inhomogeneous enhancement of the inferior tip of the liver is nonspecific however raises concern for inflammation and/or infection. 4. Urinary bladder wall thickening could be due to cystitis or lack of distention. 5. Cardiomegaly. 6. 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 There is resultant grade 1 spondylolisthesis of L5 on S1 with severe bilateral neural foramina narrowing and possible compression of the exiting L5 nerve roots. 7. Splenomegaly. COMMENTS: For patients with an IVC filter, recommend assessment for a management plan for the patient's IVC filter. If there is no established management plan, recommend referral to an interventional clinician on a nonemergent basis for evaluation.
[2024-07-29] MEDS: iohexol 350 mg/mL 500 mL Btl (per mL) IV (18:28)
[2024-07-29] MEDS: sodium chloride 0.9% 1,000 ML 999 ML IV (19:24)
[2024-07-29] MEDS: morphine 4 mg/mL SDV 1 mL IVP (19:25)
[2024-07-29] MEDS: ondansetron 2 mg/ML SDV 2 mL 4 MG IVP (19:25)
[2024-07-29] MEDS: piperacillin-tazobactam 4.5 GM in sodium chloride 0.9% (plus) 50 ML IV (19:28)
[2024-07-29 19:35] LABS: Bilirubin Urine 1+ (Negative); Blood Urine Negative (Negative); Glucose Urine UA Negative (Normal); Ketones Urine Negative (Negative); Leukocyte Esterase Urine Trace (Negative); Nitrate Urine Negative (Negative); Protein Urine 1+ (Negative); Urine Appearance Clear (CLEAR); Urine Color Dark Yellow (Yellow)
[2024-07-29 19:37] LABS: Add Urine Microscopic? YES; WBC Urine 21-50 /hpf (0-5)
[2024-07-29 19:50] LABS: Add Urine Culture? Yes; Bacteria Urine 1+ /hpf; Specific Gravity, Urine 1.078 (1.005-1.030); UA Slide Review UA Slide Review Perf
[2024-07-29 19:57] LABS: INR 1.13 (0.8-1.2)
--- NOTE | 2024-07-29 21:16 | ED_ITS ---
HPI - Fever 2 General: Chief Complaint: Fever Stated Complaint: drain site swollen, fever Time Seen by Provider: 07/29/24 17:42 History of Present Illness: This patient is a 59-year-old white female who presents to the emergency department with fever, nausea and vomiting. Patient has an extensive past medical history. She had a bile leak following a cholecystectomy and had stents placed in the liver at [facility]. She states the stents were clogged and just recently underwent another procedure at [facility] and had drains placed. On Tuesday she developed nausea and vomiting. She developed a fever today. She is having worsening right upper quadrant pain. She contacted her hepatobiliary specialist at [facility] and they recommended she come into the local emergency department for evaluation. Associated symptoms: Reports abdominal pain, nausea and vomiting Related Data Home Medications Medication Instructions Recorded Confirmed acetaminophen 325 mg tablet 325 mg PO QID PRN Pain, Mild 01/25/23 06/20/24 (Tylenol) metoprolol tartrate 25 mg tablet 12.5 mg PO BID 04/19/24 06/20/24 Previous Rx's Medication Instructions Recorded off drum loader and unloader knee brace right #1 ea 07/29/23 cyclobenzaprine 10 mg tablet 10 mg PO TID 90 days #270 tabs 01/19/24 gabapentin 600 mg tablet 600 mg PO TID 90 days #270 tabs 01/19/24 pantoprazole 40 mg tablet,delayed 40 mg PO DAILY 90 days #90 tabs 01/19/24 release left AFO brace #1 ea 01/31/24 metformin 500 mg tablet 500 mg PO BIDWMEAL 90 days #180 02/13/24 tabs warfarin 4 mg tablet 4 mg PO DAILY #30 tabs 02/28/24 warfarin 5 mg tablet 5 mg PO DAILY #30 tabs 04/12/24 naloxone 4 mg/actuation nasal 4 mg intranasal Q2M PRN opioid 05/29/24 spray (Narcan) overdose #2 ea warfarin 3 mg tablet 3 mg PO DAILY #30 tabs 05/29/24 hydromorphone 4 mg tablet 4 mg PO BID PRN pain 30 days #60 06/20/24 (Dilaudid) tabs miscellaneous medical supply See Rx Instructions miscellaneous 06/20/24 .COMPLEX #1 ea hydrocodone 10 mg-acetaminophen 1 tab PO Q8H PRN pain 7 days #21 07/16/24 325 mg tablet tabs Allergies Allergy/AdvReac Type Severity Reaction Status Date / Time pork derived (porcine) Allergy Intermediate hoahaoism Verified 07/29/24 17:27 reasons Alpha-Gal Allergy unknown Verified 07/29/24 17:27 (Zcnhqhyqe-Yhjqn-4,3-Gala shellfish derived AdvReac Intermediate ADR-Confusi Verified 07/29/24 17:27 on Review of Systems 2 General: Reports: 10 or more systems reviewed and unremarkable except in HPI and below GI: Reports: abdominal pain, nausea and vomiting PFSH ED 2 PFSH: Medical History Allergy to alpha-gal No pertinent family history Surgical History History of orthopedic surgery Left femur fracture repair S/P aneurysm repair Hepatic aneurysm with stent placed History of abdominal surgery Bile duct repair, repair of bowel injury Hx of cholecystectomy Family History Father Hypertension Denies family history of Diabetes Clotting disorder Bleeding disorder Cancer Stroke Social History Smoking and tobacco/nicotine status: former use of tobacco/nicotine Alcohol intake: never Female Reproductive History: Para: 2 Spontaneous abortions: Yes (1) Physical Exam 2 Const: COMMON NORMALS: patient oriented x3 and no limitations GENERAL APPEARANCE: cooperative HENMT: COMMON NORMALS: normocephalic, atraumatic, Normal nasal mucous membranes and turbinates present, moist oral mucous membranes and oropharynx normal HEAD & SCALP: normal to inspection, normocephalic and atraumatic F ALEXIS & SINUS: normal facial exam NOSE: Normal nasal mucous membranes and turbinates present Eye: COMMON NORMALS: Equal, round and reactive pupils present, EOMs intact bilaterally and conjunctivae normal GENERAL EYE: appearance normal, both eyes and all related structures CONJUNCTIVA: Yes conjunctivae normal PUPIL: Yes Equal, round and reactive pupils present Neck/C-Spine: COMMON NORMALS: supple and no JVD Chest: COMMONS NORMALS: normal inspection of the chest Resp: COMMON NORMALS: normal respiratory effort and clear to auscultation bilaterally AUSCULTATION: clear to auscultation bilaterally Cardio: COMMON NORMALS: no JVD, regular rate, regular rhythm, No gallops present (Cardio), No murmurs present (Cardio) and No rub (Cardio) RATE: r egular rate RHYTHM: regular rhythm GI: COMMON NORMALS: Normal to inspection, nondistended, normoactive bowel sounds present and Soft to palpation AUSCULTATION: Yes normoactive bowel sounds PALPATION: Yes Soft to palpation and Yes Tenderness to palpation present (GI) Details: RUQ : COMMON NORMALS: Yes no CVA tenderness BLADDER/KIDNEY EXAM: Yes no CVA tenderness Back/Pelvis: COMMON NORMALS: no CVA tenderness and thoracic and lumbar spine normal to inspection Extremity: COMMON NORMALS: normal to inspection Neuro: COMMON NORMALS: patient oriented x3 and CN's II-XII intact bilaterally Psych: COMMON NORMALS: mental status grossly normal, Normal thought process present and cooperative THOUGHT PROCESS: Normal thought process present Skin: COMMON NORMALS: no rashes or lesions noted, turgor normal and no jaundice GENERAL SKIN EXAM: no rashes or lesions noted and turgor normal Course 2 Vital Signs: Vital signs: Vital Signs Temperature 101.4 F H 07/29/24 17:21 Pulse Rate 86 07/29/24 21:36 Respiratory Rate 16 07/29/24 21:36 Blood Pressure 114/43 07/29/24 21:36 Pulse Oximetry 92 07/29/24 21:36 Oxygen Delivery Me thod Room Air 07/29/24 21:36 MDM - Fever Medical Decision Making Patient does have a temperature of 101.4 degrees. She has a white count of 15.8. CMP revealed a blood sugar of 173. Total bili 3.2. Alk phos 376. INR 1.13. Urinalysis is consistent with a urinary tract infection. CT scan of the abdomen and pelvis with IV contrast was read by the radiologist. She does have some hazy fluid stranding where the posterior drain enters the right hepatic lobe concerning for infection. We have been trying to get in touch with the hepatobiliary specialist at [facility] but so far have been unsuccessful. I have discussed this case with Dr. Abbasi, hospitalist here. He would like us to discussed the case with [facility] but can likely admit the patient here if they are okay with that. We did initiate Zosyn. Patient was also given morphine and Zofran as well as IV fluids. She is stable. Several more calls were placed to [facility] and we have been unsuccessful at reaching the hepatobiliary specialist and/or interventional creative specialist that did the procedure. I discussed the case again with Dr. Abbasi, hospitalist here. He will admit the patient here. We will start vancomycin in addition to the Zosyn. Patient is stable. Lab Data 07/29/24 17:34 07/29/24 17:34 Radiology Impressions Abdomen/Pelvis CT 07/29/24 18:10 IMPRESSION: 1. Posteriorly positioned biliary drain terminates along the medial aspect of the right hepatic lobe. There is minimal hazy fluid stranding at this location raising concern for residual infection or inflammation. 2. Anteriorly positioned biliary drain terminates at the junction of the distal common bile duct and duodenum. There is air and fluid in the distal common bile duct surrounding the biliary drain. 3. Minimal inhomogeneous enhancement of the inferior tip of the liver is nonspecific however raises concern for inflammation and/or infection. 4. Urinary bladder wall thickening could be due to cystitis or lack of distention. 5. Cardiomegaly. 6. 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 There is resultant grade 1 spondylolisthesis of L5 on S1 with severe bilateral neural foramina narrowing and possible compression of the exiting L5 nerve roots. 7. Splenomegaly. COMMENTS: For patients with an IVC filter, recommend assessment for a management plan for the patient's IVC filter. If there is no established management plan, recommend referral to an interventional clinician on a nonemergent basis for evaluation. Laboratory Results WBC 15.82 10^3/uL (3.29-11.43) H 07/29/24 17:34 RBC 4.50 10^6/uL (3.85-5.65) 07/29/24 17:34 Hgb 11.70 g/dL (11.27-16.99) 07/29/24 17: Hct 38.8 % (36-47) 07/29/24 17:34 MCV 86.2 fl (85-98) 07/29/24 17:34 MCH 26.0 pg (27-33) L 07/29/24 17: MCHC 30.2 g/dL (30-55) 07/29/24 17: RDW 16.7 % (12.1-15.1) H 07/29/24 17:34 Plt Count 214 10^3/cmm (157-399) 07/29/24 17:34 MPV 9.5 fL (7.4-10.4) 07/29/24 17:34 Neut % (Auto) 84.2 % 07/29/24 17:34 Lymph % (Auto) 5.4 % 07/29/24 17:34 Baxter % (Auto) 8.8 % 07/29/24 17:34 Eos % (Auto) 0.8 % 07/29/24 17:34 Baso % (Auto) 0.3 % 07/29/24 17:34 Neut # (Auto) 13.33 10^3/uL (1.8-7.7) H 07/29/24 17:34 Lymph # (Auto) 0.9 10^3/uL (0.8-4.8) 07/29/24 17:34 Baxter # (Auto) 1.4 10^3/uL (0.2-0.9) H 07/29/24 17:34 Eos # (Auto) 0.1 10^3/uL (0.0-0.8) 07/29/24 17:34 Baso # (Auto) 0.1 10^3/uL (0.0-0.1) 07/29/24 17:34 Nucleated RBC % (auto) 0 % 07/29/24 17:34 Nucleated RBCs # 0.0 /100WBC 07/29/24 17:34 PT 14.90 SECONDS (12.1-14.9) 07/29/24 17:34 INR 1.13 (0.8-1.2) 07/29/24 17:34 Sodium 134 mmol/L (136-145) L 07/29/24 17:34 Potassium 3.8 mmol/L (3.5-5.1) 07/29/24 17:34 Chloride 97 mmol/L (98-107) L 07/29/24 17:34 Carbon Dioxide 26 mmol/L (22-29) 07/29/24 17:34 Anion Gap 14.8 (5-19) 07/29/24 17:34 BUN 13 mg/dL (6-20) 07/29/24 17:34 Creatinine 0.7 mg/dL (0.5-0.9) 07/29/24 17:34 GFR Calculation 85.9 mL/min (90-130) L 07/29/24 17:34 Glucose 173 mg/dL (65-115) H 07/29/24 17:34 Calculated Osmolality 282 mOsm/kg (285-295) L 07/29/24 17:34 Lactic Acid 1.0 mmol/L (0.5-2.2) 07/29/24 17:34 Calcium 8.6 mg/dL (8.5-10.5) 07/29/24 17:34 Total Bilirubin 3.2 mg/dL (0.15-1.2) H 07/29/24 17:34 AST 18 U/L (0-32) 07/29/24 17:34 ALT 18 U/L (0-33) 07/29/24 17:34 Alkaline Phosphatase 376 U/L (35-105) H 07/29/24 17:34 Total Protein 6.9 g/dL (6.6-8.7) 07/29/24 17:34 Albumin 3.7 g/dL (3.5-5.2) 07/29/24 17:34 Globulin 3.2 g/dL (1.3-4.6) 07/29/24 17:34 Urine Color Dark yellow (Yellow) A 07/29/24 19:05 Urine Appearance Clear (CLEAR) 07/29/24 19:05 Urine pH 6.0 (5-7) 07/29/24 19:05 Ur Specific [place] 1.078 (1.005-1.030) H 07/29/24 19:05 Urine Protein 1+ (Negative) A 07/29/24 19:05 Urine Glucose (UA) Negative (Normal) 07/29/24 19:05 Urine Ketones Negative (Negative) 07/29/24 19: Urine Blood Negative (Negative) 07/29/24 19:05 Urine Nitrate Negative (Negative) 07/29/24 19:05 Urine Bilirubin 1+ (Negative) H 07/29/24 19:05 Urine Urobilinogen 4.0 mg/dL (Negative) H 07/29/24 19:05 Ur Leukocyte Esterase Trace (Negative) A 07/29/24 19:05 Urine RBC 3-5 /hpf (0-2) 07/29/24 19:05 Urine WBC 21-50 /hpf (0-5) H 07/29/24 19:05 Ur Squamous Epith Cells 6-10 /hpf (0-5) 07/29/24 19:05 Amorphous Sediment Not Reportable 07/29/24 19:05 Urine Bacteria 1+ /hpf (NONE) H 07/29/24 19:05 Hyaline Casts 5-10 /lpf H 07/29/24 19:05 All radiology interpretation(s) finalized by discharge Discharge Plan Discharge Condition: Stable Prescriptions: No Action acetaminophen [Tylenol] 325 mg tablet 325 mg PO QID PRN (Reason: Pain, Mild) cyclobenzaprine 10 mg tablet 10 mg PO TID 90 Days Qty: 270 1RF gabapentin 600 mg tablet 600 mg PO TID 90 Days Qty: 270 1RF pantoprazole 40 mg tablet,delayed release (DR/EC) 40 mg PO DAILY 90 Days Qty: 90 1RF (DME) left AFO brace See Rx Instructions .Route .MEDSUPPLY Qty: 1 0RF Rx Instructions: As directed metformin 500 mg tablet 500 mg PO BIDWMEAL 90 Days Qty: 180 1RF warfarin 4 mg tablet 4 mg PO DAILY Qty: 30 0RF Protocol: Dose Management Condition: Tuesday Dose/Route: 3 mg Instruction: 1 x 3 mg tablet Condition: Tuesday Dose/Route: 4 mg Instruction: 1 x 4 mg tablet Condition: Tuesday Dose/Route: 3 mg Instruction: 1 x 3 mg tablet Condition: Tuesday Dose/Route: 4 mg Instruction: 1 x 4 mg tablet Condition: Dose/Route: 3 mg Instruction: 1 x 3 mg tablet Condition: Tuesday Dose/Route: 4 mg Instruction: 1 x 4 mg tablet Condition: Tuesday Dose/Route: 3 mg Instruction: 1 x 3 mg tablet Protocol Text: Adjustment Start Date: 06/28/24 INR Value: 46.30 SECONDS INR Date: 06/28/24 Recheck Date: 07/05/24 warfarin 3 mg tablet 3 mg PO DAILY Qty: 30 2RF Protocol: Dose Management Condition: Tuesday Dose/Route: 3 mg Instruction: 1 x 3 mg tablet Condition: Tuesday Dose/Route: 4 mg Instruction: 1 x 4 mg tablet Condition: Tuesday Dose/Route: 3 mg Instruction: 1 x 3 mg tablet Condition: Tuesday Dose/Route: 4 mg Instruction: 1 x 4 mg tablet Condition: Dose/Route: 3 mg Instruction: 1 x 3 mg tablet Condition: Tuesday Dose/Route: 4 mg Instruction: 1 x 4 mg tablet Condition: Tuesday Dose/Route: 3 mg Instruction: 1 x 3 mg tablet Protocol Text: Adjustment Start Date: 06/28/24 INR Value: 46.30 SECONDS INR Date: 06/28/24 Recheck Date: 07/05/24 naloxone [Narcan] 4 mg/actuation spray,non-aerosol 4 mg intranasal Q2M PRN (Reason: opioid overdose) Qty: 2 0RF Rx Instructions: spray 1 dose into ONE nostril (DME) off drum loader and unloader knee brace right See Rx Instructions .Route .MEDSUPPLY Qty: 1 0RF Rx Instructions: As directed metoprolol tartrate 25 mg tablet 12.5 mg PO BID hydromorphone [Dilaudid] 4 mg tablet 4 mg PO BID PRN (Reason: pain) 30 Days Qty: 60 0RF miscellaneous medical supply Misc See Rx Instructions miscellaneous .COMPLEX Qty: 1 0RF Rx Instructions: electric hospital bed as directed; warfarin 5 mg tablet 5 mg PO DAILY Qty: 30 0RF Protocol: Dose Management Condition: Tuesday Dose/Route: 3 mg Instruction: 1 x 3 mg tablet Condition: Tuesday Dose/Route: 4 mg Instruction: 1 x 4 mg tablet Condition: Tuesday Dose/Route: 3 mg Instruction: 1 x 3 mg tablet Condition: Tuesday Dose/Route: 4 mg Instruction: 1 x 4 mg tablet Condition: Dose/Route: 3 mg Instruction: 1 x 3 mg tablet Condition: Tuesday Dose/Route: 4 mg Instruction: 1 x 4 mg tablet Condition: Tuesday Dose/Route: 3 mg Instruction: 1 x 3 mg tablet Protocol Text: Adjustment Start Date: 06/28/24 INR Value: 46.30 SECONDS INR Date: 06/28/24 Recheck Date: 07/05/24 hydrocodone-acetaminophen 10-325 mg tablet 1 tab PO Q8H PRN (Reason: pain) 7 Days Qty: 21 0RF Rx Instructions: For breakthrough pain between the Dilaudid Referrals: Nica Hernández MD [Primary Care Provider] - Coding Level of Care Code ED [employer] Supervisor for Chg Fwd
--- NOTE | 2024-07-29 22:54 | PM.HP ---
Providers/Chief Complaint Admitting Physician: Darnell Abbasi MD Primary Care Provider: Nica Hernández MD Chief Complaint: drain site swollen, fever History of Present Illness Chrissy Ho is a 59 year old female with history of bile and artery leak in the liver following laparoscopic cholecystectomy complication during surgery performed at [facility] by Dr. Johns July 2022. Patient has been having internal stents as well as external drains since that time most recently 2 external stents 1 anterior and 1 posterior placed at [facility] on Tuesday. Per their directions from interventional radiology both drains were capped by patient's on . He tells me that the drainage initially 250 cc a day had dropped off significantly. I think there was hope that the wire would drain internally via the stents. Unfortunately the patient has had abdominal pain swelling of the abdomen overlying the liver stents and fever. She was sent to the emergency department by her interventional radiologist to have test done and called to the interventional radiologist but they have nobody on-call for that department and the GI department declined to be involved and would not talk with Dr. Pugh. Dr. Pugh called me for admission and currently we have no other options. He states that the surgeons also would not be helpful on this case. Zosyn and vancomycin were started. Patient tells me the following history with her cholecystitis. She had severe postoperative pain and remained in the hospital for 5 days she was found to have a bile leak as well as a small bowel leak and was on a ventilator for 5 days. She says she thinks the bowel and the hepatic artery were nicked on initial surgery. She developed an enterocutaneous fistula and that drainage has decreased significantly. She has a large abdominal wound that closed by secondary intention. She tells me that Dr. Johns no longer works at [place] but is now in [place]. The patient's drains were On Tuesday she had fevers poor appetite and worsening abdominal pain now with fevers 202 she had nausea vomiting on Tuesday. She has not had bowel movements. She admits to some weight loss with course of these illnesses. Prasanth at bedside gives me the number for [facility] [phone] Social history no tobacco no alcohol no we she wants full CODE STATUS Review of Systems Narrative: General positive for some weight loss respiratory no cough or wheezing cardiopulmonary no chest pain Medications/Allergies Home Medications Medication Instructions Recorded Confirmed Last Taken Type acetaminophen 325 mg tablet 325 mg PO QID PRN Pain, Mild 01/25/23 06/20/24 Unknown History (Tylenol) off contract loader knee brace right #1 ea 07/29/23 06/20/24 Unknown Rx cyclobenzaprine 10 mg tablet 10 mg PO TID 90 days #270 tabs 01/19/24 06/20/24 02/03/24 Rx gabapentin 600 mg tablet 600 mg PO TID 90 days #270 tabs 01/19/24 06/20/24 02/03/24 Rx pantoprazole 40 mg tablet,delayed 40 mg PO DAILY 90 days #90 tabs 01/19/24 06/20/24 02/03/24 Rx release left AFO brace #1 ea 01/31/24 06/20/24 Unknown Rx metformin 500 mg tablet 500 mg PO BIDWMEAL 90 days #180 02/13/24 06/20/24 Unknown Rx tabs warfarin 4 mg tablet 4 mg PO DAILY #30 tabs 02/28/24 06/28/24 Unknown Rx warfarin 5 mg tablet 5 mg PO DAILY #30 tabs 04/12/24 06/28/24 Unknown Rx metoprolol tartrate 25 mg tablet 12.5 mg PO BID 04/19/24 06/20/24 Unknown History naloxone 4 mg/actuation nasal 4 mg intranasal Q2M PRN opioid 05/29/24 06/20/24 Unknown Rx spray (Narcan) overdose #2 ea warfarin 3 mg tablet 3 mg PO DAILY #30 tabs 05/29/24 06/28/24 Unknown Rx hydromorphone 4 mg tablet 4 mg PO BID PRN pain 30 days #60 06/20/24 06/20/24 Unknown Rx (Dilaudid) tabs miscellaneous medical supply See Rx Instructions miscellaneous 06/20/24 06/20/24 Unknown Rx .COMPLEX #1 ea hydrocodone 10 mg-acetaminophen 1 tab PO Q8H PRN pain 7 days #21 07/16/24 Unknown Rx 325 mg tablet tabs Allergies Allergy/AdvReac Type Severity Reaction Status Date / Time pork derived (porcine) Allergy Intermediate hindu Verified 07/29/24 17:27 reasons Alpha-Gal Allergy unknown Verified 07/29/24 17:27 (Lerfbhchy-Shalb-5,3-Gala shellfish derived AdvReac Intermediate ADR-Confusi Verified 07/29/24 17:27 on PFSH Acute PFSH: Medical History (Updated 07/29/24 @ 23:07 by Darnell Abbasi MD) Diabetes History of DVT (deep vein thrombosis) Presence of IVC filter Enterocutaneous fistula Biliary obstruction Allergy to alpha-gal No pertinent family history Surgical History History of orthopedic surgery Left femur fracture repair S/P aneurysm repair Hepatic aneurysm with stent placed History of abdominal surgery Bile duct repair, repair of bowel injury Hx of cholecystectomy Family History Father Hypertension Denies family history of Diabetes Clotting disorder Bleeding disorder Cancer Stroke Social History Smoking and tobacco/nicotine status: former use of tobacco/nicotine Alcohol intake: never Female Reproductive History: Para: 2 Spontaneous abortions: Yes (1) Vitals/I&O/Wt Last Vital Signs Temp 101.4 F H 07/29/24 17:21 Pulse 86 07/29/24 21:36 Resp 16 07/29/24 21:36 BP 114/43 07/29/24 21:36 Pulse Ox 92 07/29/24 21:36 O2 Del Method Room Air 07/29/24 21:36 Weight last 48 hrs Weight 105.233 kg Physical Exam Narrative: General Well-developed well-nourished obese white female in obvious discomfort with her abdomen. She moves with an antalgic careful manner. CV regular rate and rhythm with bouts of trigeminy. She has a 3/6 systolic ejection murmur best heard left sternal border Lungs clear to auscultation bilaterally Abdomen positive bowel tones soft very tender over the right upper quadrant where it is swollen and mildly warm Calves no pretibial edema Mood and affect normal Data 07/29/24 17:34 07/29/24 17:34 Micro: Microbiology 07/29/24 17:37 Blood Culture - Preliminary Blood SPECIMEN COLLECTED 07/29/24 17:34 Blood Culture - Preliminary Blood SPECIMEN COLLECTED CT Abd/Pel: My impression: 1. Posteriorly positioned biliary drain terminates along the medial aspect of the right hepatic lobe. There is minimal hazy fluid stranding at this location raising concern for residual infection or inflammation. 2. Anteriorly positioned biliary drain terminates at the junction of the distal common bile duct and duodenum. There is air and fluid in the distal common bile duct surrounding the biliary drain. 3. Minimal inhomogeneous enhancement of the inferior tip of the liver is nonspecific however raises concern for inflammation and/or infection. 4. Urinary bladder wall thickening could be due to cystitis or lack of distention. 5. Cardiomegaly. 6. 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 There is resultant grade 1 spondylolisthesis of L5 on S1 with severe bilateral neural foramina narrowing and possible compression of the exiting L5 nerve roots. 7. Splenomegaly. COMMENTS: For patients with an IVC filter, recommend assessment for a management plan for the patient's IVC filter. If there is no established management plan, recommend referral to an interventional clinician on a nonemergent basis for evaluation. A&P Assessment and plan (1) Biliary obstruction: Patient has internal stents that I do not think are draining well she has abdominal pain white count with nausea and and pain worsening after the drains were capped. I uncap them and sent 5 cc from each of the anterior and posterior drains for Gram stain and culture. We do not have the right bags for this so she are using 10 cc syringes extended but not under pressure to allow drainage from the liver. 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 She states that has drained stool initially and slowly decreased. They are not operating due to high risk of surgery and hope that this will close on its own (3) Hepatic artery aneurysm: Reportedly has a stent (4) Intra-abdominal infection after surgical procedure: This was extensive post surgery in July. Currently I think the biliary system is infected with a air and stranding of fat. Treat with vancomycin and Zosyn pending cultures (5) Presence of IVC filter: Will start anticoagulation with apixaban for filter and history of DVT (6) History of DVT (deep vein thrombosis): See above (7) Diabetes: Lactic acid was normal continue with metformin start sliding scale insulin and 1600 -calorie ADA diet Attestations Medical Necessity Statement*: This patient's hospitalization will extend past 2 midnights. Coding Level of Care Code 38008 Diagnoses Biliary obstruction K83.1 Enterocutaneous fistula K63.2 Hepatic artery aneurysm I72.8 Intra-abdominal infection after surgical procedure T81.40XA Presence of IVC filter Z95.828 History of DVT (deep vein thrombosis) Z86.718 Diabetes E11.9 Time Spent (min) 75
[2024-07-30] VITALS (8 sets, daily range): BP systolic 92–135; BP diastolic 50–82; PULSE 72–84; RESP 16–19; TEMP 36.3–38.3; O2SAT 91–98
[2024-07-30] MEDS: sodium chlor 0.9% + KCl 20 mEq 20 MEQ/1,000 ML BAG 100 MEQ IV ×3 (00:18→20:03)
[2024-07-30] MEDS: vancomycin 2,000 MG/400 ML PIGGYBACK 200 MG IV (00:18)
[2024-07-30] MEDS: metformin 500 mg Tablet PO (00:19)
[2024-07-30] MEDS: apixaban 5 mg Tablet PO (00:19)
[2024-07-30] MEDS: acetaminophen 325 mg Tablet 650 MG PO ×2 (04:09→18:25)
[2024-07-30 04:36] LABS: Basophils # 0.1 10^3/uL (0.0-0.1); Basophils % 0.3 %; Eosinophils # 0.3 10^3/uL (0.0-0.8); Eosinophils % 1.4 %; Hematocrit 39.8 % (36-47); Lymphocytes # 0.5 10^3/uL (0.8-4.8); Lymphocytes % 2.9 %; Mean Corpuscular HGB Conc 30.4 g/dL (30-55); Mean Corpuscular Hemoglobin 26.8 pg (27-33); Mean Corpuscular Volume 88.1 fl (85-98); Mean Platelet Volume 9.9 fL (7.4-10.4); Monocytes # 0.4 10^3/uL (0.2-0.9); Monocytes % 2.1 %; Neutrophils % 92.7 %; Nucleated Red Blood Cells % 0 %; Platelet Count 248 10^3/cmm (157-399); Red Blood Count 4.52 10^6/uL (3.85-5.65); Red Cell Distribution Width 17.2 % (12.1-15.1); White Blood Count 17.39 10^3/uL (3.29-11.43)
[2024-07-30 04:56] LABS: Alanine Aminotransferase 15 U/L (0-33); Albumin Level 3.2 g/dL (3.5-5.2); Alkaline Phosphatase 341 U/L (35-105); Blood Urea Nitrogen 14 mg/dL (6-20); Calcium 8.1 mg/dL (8.5-10.5); Carbon Dioxide 20 mmol/L (22-29); Chloride 102 mmol/L (98-107); Creatinine Clr Calc Pharmacy 99.2816; Globulin 3.9 g/dL (1.3-4.6); Glomerular Filtration Rate 85.9 mL/min (90-130); Glucose 132 mg/dL (65-115); Magnesium 1.7 mg/dL (1.7-2.3); Osmolality Calculated 284 mOsm/kg (285-295); Phosphorus 2.8 mg/dL (2.5-4.5); Sodium 136 mmol/L (136-145); Total Protein 7.1 g/dL (6.6-8.7)
[2024-07-30 04:57] LABS: Anion Gap 18.3 (5-19); Aspartate Amino Transferase 27 U/L (0-32); Potassium 4.3 mmol/L (3.5-5.1)
[2024-07-30 06:35] LABS: Glucose Point of Care 156 mg/dL (70-110)
--- NOTE | 2024-07-30 08:39 | PHA.VACGOAL ---
Vancomycin Goal - Goal Vancomycin Goal:: 10-15 mg/L Vancomycin Indication:: Other - Therapy Current therapy:: Pip/Tazo Day of therpy:: Day []of [] . Actual body weight (kg): 230 lb - Data Labs: WBC 17.39 10^3/uL (3.29-11.43) H 07/30/24 03:46 RBC 4.52 10^6/uL (3.85-5.65) 07/30/24 03:46 Hgb 12.10 g/dL (11.27-16.99) 07/30/24 03:46 Hct 39.8 % (36-47) 07/30/24 03:46 MCV 88.1 fl (85-98) 07/30/24 03:46 MCH 26.8 pg (27-33) L 07/30/24 03:46 MCHC 30.4 g/dL (30-55) 07/30/24 03:46 RDW 17.2 % (12.1-15.1) H 07/30/24 03:46 Sodium 136 mmol/L (136-145) 07/30/24 03:46 Potassium 4.3 mmol/L (3.5-5.1) 07/30/24 03:46 Chloride 102 mmol/L (98-107) 07/30/24 03:46 Carbon Dioxide 20 mmol/L (22-29) L 07/30/24 03:46 Anion Gap 18.3 (5-19) 07/30/24 03:46 BUN 14 mg/dL (6-20) 07/30/24 03:46 Creatinine 0.7 mg/dL (0.5-0.9) 07/30/24 03:46 GFR Calculation 85.9 mL/min (90-130) L 07/30/24 03:46 Treatment plan:: new consult Regimen:: 1500 MG Q12H PER TELEPHARM TROUGH 07/31 2200
[2024-07-30] MEDS: cyclobenzaprine 10 mg Tablet PO ×3 (09:21→20:03)
[2024-07-30] MEDS: pantoprazole DR 40 mg Tablet PO (09:22)
--- NOTE | 2024-07-30 10:04 | PC.CHAP ---
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 [] Patient/Family/Request visit [] Outpatient visit [] Follow-up visit [] Physician referral [] Code/Alert [x] Routine visit [] Staff referral [] Actively dying [] Patient sleeping [] Family support [] [] Out of room [] Palliative care [] [] Receiving care in room [] Pre-surgical visit [] Trauma [] Long length of stay [] ICU visit [] Other: Relational/Emotional Strength [] Patient feels connected with others/family/visitors/staff [] Distress [] Loneliness/isolation [] Abandonment Spirituality of Patient [x] Person of Eleanor [] Attends Bahai of their Eleanor [x] Believes in Prayer [] Reads Bible or Sikhism materials [] There are Spiritual issues to be addressed Parking Lot Spotter Interventions [x] Prayer [x] Active listening [] Non-anxious presence [] Spiritual/emotional support [] Crisis/trauma care [] Spiritual counseling [] Bereavement support [] Provided bereavement packet [] Provided Bible/devotional materials [] Provided toy/stuffed animal, coloring book to patient or family member [] Provided Communion [] Anointing/[place] [] Salvation [x] Completed spiritual assessment [] Other: Impact on Illness or Injury [] Angry [] Fearful [] Anxious [] Often cries [] Exhaustion [] Unable to work [] Unable to attend pentecostalism [] Unable to walk/stand [] Unable to read [] Unable to drive [] Unable to eat/drink [] Unable to sleep [] Unable to be with family [] Patient intubated [] Other: Summary Time spent with patient 5 min
[2024-07-30] MEDS: HYDROcodone-acetaminophen 10-325 mg Tablet 1 TAB PO ×2 (11:35→18:57)
[2024-07-30 11:36] LABS: Glucose Point of Care 178 mg/dL (70-110)
[2024-07-30] MEDS: vancomycin 1,500 MG/300 ML PIGGYBACK 200 MG IV ×2 (11:53→22:39)
--- NOTE | 2024-07-30 13:20 | PM.TDS ---
Transfer Summary Providers Date of Admission: 07/29/24 22:22 Date of Discharge/Transfer: 07/30/24 Attending Provider at Admission: Darnell Abbasi MD Attending Provider at Transfer: Ese Jane MD Primary Care Provider: Nica Hernández MD Transfer Plans: Anticipated date of transfer: 07/30/24. Receiving Facility: [facility]. Receiving Provider: Dr. Bustillos. 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 Johns July 2022. Patient has been having internal stents as well as external drains since that time most recently 2 external stents 1 anterior and 1 posterior placed at [facility] on Tuesday. Per their directions from interventional radiology both drains were capped by patient's on . He tells me that the drainage initially 250 cc a day had dropped off significantly. I think there was hope that the wire would drain internally via the stents. Unfortunately the patient has had abdominal pain swelling of the abdomen overlying the liver stents and fever. She was sent to the emergency department by her interventional radiologist to have test done and called to the interventional radiologist but they have nobody on-call for that department and the GI department declined to be involved and would not talk with Dr. Pugh. Dr. Pugh called me for admission and currently we have no other options. He states that the surgeons also would not be helpful on this case. Zosyn and vancomycin were started. Patient tells me the following history with her cholecystitis. She had severe postoperative pain and remained in the hospital for 5 days she was found to have a bile leak as well as a small bowel leak and was on a ventilator for 5 days. She says she thinks the bowel and the hepatic artery were nicked on initial surgery. She developed an enterocutaneous fistula and that drainage has decreased significantly. She has a large abdominal wound that closed by secondary intention. She tells me that Dr. Johns no longer works at [facility] but is now in [place]. The patient's drains were On Tuesday she had fevers poor appetite and worsening abdominal pain now with fevers 202 she had nausea vomiting on Tuesday. She has not had bowel movements. She admits to some weight loss with course of these illnesses. Prasanth at bedside gives me the number for [facility] [phone] Social history no tobacco no alcohol no we she wants full CODE STATUS Hospital Course Hospital Course Patient admitted overnight for abdominal pain worsening swelling, fever, leukocytosis. Patient does have internal biliary stents with drains placed which are currently not draining adequately at this time. Highly suspect drain blockage at this time. Please see assessment and plan below from history physical document. Patient has internal stents that I do not think are draining well she has abdominal pain white count with nausea and and pain worsening after the drains were capped. I uncap them and sent 5 cc from each of the anterior and posterior drains for Gram stain and culture. We do not have the right bags for this so she are using 10 cc syringes extended but not under pressure to allow drainage from the liver. 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 She states that has drained stool initially and slowly decreased. They are not operating due to high risk of surgery and hope that this will close on its own (3) Hepatic artery aneurysm: Reportedly has a stent (4) Intra-abdominal infection after surgical procedure: This was extensive post surgery in July. Currently I think the biliary system is infected with a air and stranding of fat. Treat with vancomycin and Zosyn pending cultures (5) Presence of IVC filter: Will start anticoagulation with apixaban for filter and history of DVT (6) History of DVT (deep vein thrombosis): See above (7) Diabetes: Lactic acid was normal continue with metformin start sliding scale insulin and 1600 -calorie ADA diet There was difficulty in reaching somebody from [facility] to initiate a transfer for this patient therefore she was admitted to our facility. I have discussed case with hospitalist Dr. Bustillos at [facility] who is excepted patient for transfer at this time for evaluation by interventional radiology. In the meantime we will keep patient on IV antibiotics with Vanco and Zosyn at this time. Will consult general surgery for help with dressing change for patient's abdominal wound for which she requires XELOX granules during dressing change secondary to bleeding. Patient's did bring drainage bags from home which have been attached to the drains at this time. One of the drains has 0 output and the second was has very minimal 30 cc total from overnight. Currently vitally stable for transfer. Continue current management. Awaiting transfer to [place] Will check labs daily CBC, CMP. Physical Exam Narrative: General Well-developed well-nourished obese white female resting somewhat comfortably in bed however does complain of abdominal pain. CV regular rate and rhythm She has a 3/6 systolic ejection murmur best heard left sternal border Lungs clear to auscultation bilaterally Abdomen positive bowel tones soft very tender over the right upper quadrant where it is swollen and mildly warm Extremities: No edema bilateral lower extremities. TS Data Studies Completed and Pending Pending at discharge Category Date Time Status Blood Culture Stat Lab 07/29/24 17:37 Results Urine Culture Stat Lab 07/29/24 19:05 Received Vancomycin Trough Timed Lab 07/31/24 22:00 Ordered Wound Culture and Gram Stain Stat Lab 07/29/24 22:49 Received Wound Culture and Gram Stain Stat Lab 07/29/24 22:50 Received Completed Studies During Hospitalization Category Date Time Status CT abdomen pelvis w con* [id number] Stat Cat Scan 07/29/24 18:10 Completed Laboratory Last Values WBC 17.39 10^3/uL (3.29-11.43) H 07/30/24 03:46 RBC 4.52 10^6/uL (3.85-5.65) 07/30/24 03:46 Hgb 12.10 g/dL (11.27-16.99) 07/30/24 03:46 Hct 39.8 % (36-47) 07/30/24 03:46 MCV 88.1 fl (85-98) 07/30/24 03:46 MCH 26.8 pg (27-33) L 07/30/24 03:46 MCHC 30.4 g/dL (30-55) 07/30/24 03:46 RDW 17.2 % (12.1-15.1) H 07/30/24 03:46 Plt Count 248 10^3/cmm (157-399) 07/30/24 03:46 MPV 9.9 fL (7.4-10.4) 07/30/24 03:46 Neut % (Auto) 92.7 % 07/30/24 03:46 Lymph % (Auto) 2.9 % 07/30/24 03:46 [place] % (Auto) 2.1 % 07/30/24 03:46 Eos % (Auto) 1.4 % 07/30/24 03:46 Baso % (Auto) 0.3 % 07/30/24 03:46 Neut # (Auto) 16.10 10^3/uL (1.8-7.7) H 07/30/24 03:46 Lymph # (Auto) 0.5 10^3/uL (0.8-4.8) L 07/30/24 03:46 Bradford # (Auto) 0.4 10^3/uL (0.2-0.9) 07/30/24 03:46 Eos # (Auto) 0.3 10^3/uL (0.0-0.8) 07/30/24 03:46 Baso # (Auto) 0.1 10^3/uL (0.0-0.1) 07/30/24 03:46 Nucleated RBC % (auto) 0 % 07/30/24 03:46 Nucleated RBCs # 0.0 /100WBC 07/30/24 03:46 PT 14.90 SECONDS (12.1-14.9) 07/29/24 17:34 INR 1.13 (0.8-1.2) 07/29/24 17:34 Sodium 136 mmol/L (136-145) 07/30/24 03:46 Potassium 4.3 mmol/L (3.5-5.1) 07/30/24 03:46 Chloride 102 mmol/L (98-107) 07/30/24 03:46 Carbon Dioxide 20 mmol/L (22-29) L 07/30/24 03:46 Anion Gap 18.3 (5-19) 07/30/24 03:46 BUN 14 mg/dL (6-20) 07/30/24 03:46 Creatinine 0.7 mg/dL (0.5-0.9) 07/30/24 03:46 GFR Calculation 85.9 mL/min (90-130) L 07/30/24 03:46 Glucose 132 mg/dL (65-115) H 07/30/24 03:46 POC Glucose 178 mg/dL (70-110) H 07/30/24 11:25 Calculated Osmolality 284 mOsm/kg (285-295) L 07/30/24 03:46 Lactic Acid 1.0 mmol/L (0.5-2.2) 07/29/24 17:34 Calcium 8.1 mg/dL (8.5-10.5) L 07/30/24 03:46 Phosphorus 2.8 mg/dL (2.5-4.5) 07/30/24 03:46 Magnesium 1.7 mg/dL (1.7-2.3) 07/30/24 03:46 Total Bilirubin 3.0 mg/dL (0.15-1.2) H 07/30/24 03:46 AST 27 U/L (0-32) 07/30/24 03:46 ALT 15 U/L (0-33) 07/30/24 03:46 Alkaline Phosphatase 341 U/L (35-105) H 07/30/24 03:46 Total Protein 7.1 g/dL (6.6-8.7) 07/30/24 03:46 Albumin 3.2 g/dL (3.5-5.2) L 07/30/24 03:46 Globulin 3.9 g/dL (1.3-4.6) 07/30/24 03:46 Urine Color Dark yellow (Yellow) A 07/29/24 19:05 Urine Appearance Clear (CLEAR) 07/29/24 19:05 Urine pH 6.0 (5-7) 07/29/24 19:05 Ur Specific [place] 1.078 (1.005-1.030) H 07/29/24 19:05 Urine Protein 1+ (Negative) A 07/29/24 19:05 Urine Glucose (UA) Negative (Normal) 07/29/24 19:05 Urine Ketones Negative (Negative) 07/29/24 19:05 Urine Blood Negative (Negative) 07/29/24 19:05 Urine Nitrate Negative (Negative) 07/29/24 19:05 Urine Bilirubin 1+ (Negative) H 07/29/24 19:05 Urine Urobilinogen 4.0 mg/dL (Negative) H 07/29/24 19:05 Ur Leukocyte Esterase Trace (Negative) A 07/29/24 19:05 Urine RBC 3-5 /hpf (0-2) 07/29/24 19:05 Urine WBC 21-50 /hpf (0-5) H 07/29/24 19:05 Ur Squamous Epith Cells 6-10 /hpf (0-5) 07/29/24 19:05 Amorphous Sediment Not Reportable 07/29/24 19:05 Urine Bacteria 1+ /hpf (NONE) H 07/29/24 19:05 Hyaline Casts 5-10 /lpf H 07/29/24 19:05 Radiology Impressions Abdomen/Pelvis CT 07/29/24 18:10 IMPRESSION: 1. Posteriorly positioned biliary drain terminates along the medial aspect of the right hepatic lobe. There is minimal hazy fluid stranding at this location raising concern for residual infection or inflammation. 2. Anteriorly positioned biliary drain terminates at the junction of the distal common bile duct and duodenum. There is air and fluid in the distal common bile duct surrounding the biliary drain. 3. Minimal inhomogeneous enhancement of the inferior tip of the liver is nonspecific however raises concern for inflammation and/or infection. 4. Urinary bladder wall thickening could be due to cystitis or lack of distention. 5. Cardiomegaly. 6. 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 There is resultant grade 1 spondylolisthesis of L5 on S1 with severe bilateral neural foramina narrowing and possible compression of the exiting L5 nerve roots. 7. Splenomegaly. COMMENTS: For patients with an IVC filter, recommend assessment for a management plan for the patient's IVC filter. If there is no established management plan, recommend referral to an interventional clinician on a nonemergent basis for evaluation. Recent Clincial Data Last Vital Signs Temp 97.9 F 07/30/24 11:55 Pulse 81 07/30/24 11:55 Resp 17 07/30/24 11:55 BP 101/50 07/30/24 11:55 Pulse Ox 98 07/30/24 11:55 O2 Del Method Room Air 07/30/24 11:55 Vital Signs Temp Pulse Resp BP Pulse Ox O2 Del Method 11/04/24 11:55 97.9 F 81 17 101/50 98 Room Air 07/30/24 07:37 97.4 F L 72 17 92/59 92 Room Air 07/30/24 04:00 100.4 F H 75 18 95/60 94 Room Air Intake & Output/Weight 07/28/24 07/29/24 07/30/24 07/31/24 07:59 06:59 06:59 06:59 Intake Total 1570 / 1570 1480 / 1480 Balance 1570 / 1570 1480 / 1480 Weight 104.326 kg Vitals Last Vital Signs Temp 97.9 F 07/30/24 11:55 Pulse 81 07/30/24 11:55 Resp 17 07/30/24 11:55 BP 101/50 07/30/24 11:55 Pulse Ox 98 07/30/24 11:55 O2 Del Method Room Air 07/30/24 11:55 TS Medications Medications Acetaminophen (Acetaminophen 325 Mg Tablet) 650 mg PO Q6H PRN PRN Reason: MILD PAIN Last Admin: 07/30/24 04:09 Dose: 650 mg Hydrocodone Bitart/Acetaminophen (Hydrocodone-Acetaminophen 10-325 Mg Tablet) 1 tab PO Q8H PRN PRN Reason: pain Last Admin: 07/30/24 11:35 Dose: 1 tab Apixaban (Apixaban 5 Mg Tablet) 5 mg PO BID@0900,2100 [facility] Last Admin: 07/30/24 09:37 Dose: Not Given Cyclobenzaprine HCl (Cyclobenzaprine 10 Mg Tablet) 10 mg PO TID [facility] Last Admin: 07/30/24 09:21 Dose: 10 mg Gabapentin (Gabapentin 300 Mg Capsule) 600 mg PO TID [facility] Last Admin: 07/30/24 09:40 Dose: Not Given Glucagon (Glucagon 1 Mg/Ml Kit 1 Ml) 1 mg IM ONCE PRN; Protocol PRN Reason: Adult Acute Hypoglycemia Nursing Prot. Hydromorphone HCl (Hydromorphone 4 Mg Tablet) 4 mg PO BID PRN PRN Reason: pain Last Admin: 07/30/24 00:19 Dose: 4 mg Vancomycin HCl (Vancocin) 1,500 mg in 300 mls @ 200 mls/hr IV Q12H [facility] Last Admin: 07/30/24 11:53 Dose: 200 mls/hr Potassium Chloride/Sodium Chloride (Sodium Chlor 0.9% + Kcl 20 Meq) 20 meq in 1,000 mls @ 100 mls/hr IV .Q10H [facility] Last Admin: 07/30/24 11:23 Dose: 100 mls/hr Dextrose (D5w) 500 mls @ 0 mls/hr IV ONCE PRN; Protocol PRN Reason: Adult Acute Hypoglycemia Prot Dextrose (D10w) 125 mls @ 750 mls/hr IV PRN PRN; Protocol PRN Reason: Adult Acute Hypoglycemia Nursing Protocol Dextrose (D10w) 250 mls @ 1,000 mls/hr IV PRN PRN; Protocol PRN Reason: Adult Acute Hypoglycemia Nursing Protocol Insulin Human Lispro (Insulin Lispro 100 Unit/1 Ml) 0 unit SUBCUT WM&BEDTIME [facility]; Protocol Last Admin: 07/30/24 11:46 Dose: Not Given Metformin HCl (Metformin 500 Mg Tablet) 500 mg PO BIDWM [facility] Last Admin: 07/30/24 09:40 Dose: Not Given Metoprolol Tartrate (Metoprolol Tartrate 25 Mg Tablet) 12.5 mg PO BID [facility] Last Admin: 07/30/24 09:21 Dose: 12.5 mg Ondansetron HCl (Ondansetron 2 Mg/Ml Sdv 2 Ml) 4 mg IVP Q8H PRN PRN Reason: vomiting, or N/V if npo Pantoprazole Sodium (Pantoprazole Dr 40 Mg Tablet) 40 mg PO DAILY [facility] Last Admin: 07/30/24 09:22 Dose: 40 mg Discontinued Medications Sodium Chloride (Sodium Chloride 0.9%) 1,000 mls @ 999 mls/hr IV .Q1H1M ONE Stop: 07/29/24 19:52 Last Infusion: 07/29/24 23:34 Dose: Infused Piperacillin Sod/Tazobactam (Sod 4.5 gm/ Sodium Chloride) 50 mls @ 100 mls/hr IV ONCE ONE; Protocol Stop: 07/29/24 19:21 Last Infusion: 07/29/24 23:34 Dose: Infused Vancomycin HCl (Vancocin) 2,000 mg in 400 mls @ 200 mls/hr IV ONCE ONE Stop: 07/30/24 00:59 Last Infusion: 07/30/24 02:29 Dose: Infused Iohexol (Iohexol 350 Mg/Ml 500 Ml Btl (Per Ml)) 0 ml IV ONCE ONE Stop: 07/29/24 18:29 Last Admin: 07/29/24 18:28 Dose: 100 ml Morphine Sulfate (Morphine 4 Mg/Ml Sdv 1 Ml) 4 mg IVP ONCE ONE Stop: 07/29/24 18:53 Last Admin: 07/29/24 19:25 Dose: 4 mg Ondansetron HCl (Ondansetron 2 Mg/Ml Sdv 2 Ml) 4 mg IVP ONCE ONE Stop: 07/29/24 18:53 Last Admin: 07/29/24 19:25 Dose: 4 mg Allergies pork derived (porcine) Allergy (Intermediate, Verified 07/29/24 17:27) anabaptism reasons Alpha-Gal (Etoxpesyb-Cnzpb-1,3-Gala Allergy (Verified 07/29/24 17:27) unknown shellfish derived Adverse Reaction (Intermediate, Verified 07/29/24 17:27) ADR-Confusion anabaptism reasons Home Medications acetaminophen 325 mg tablet (Tylenol) 325 mg PO QID PRN Pain, Mild 01/25/23 [History Confirmed 07/30/24] off battery loader knee brace right #1 ea 07/29/23 [Rx Confirmed 07/30/24] cyclobenzaprine 10 mg tablet 10 mg PO TID 90 days #270 tabs 01/19/24 [Rx Confirmed 07/30/24] gabapentin 600 mg tablet 600 mg PO TID 90 days #270 tabs 01/19/24 [Rx Confirmed 07/30/24] pantoprazole 40 mg tablet,delayed release 40 mg PO DAILY 90 days #90 tabs 01/19/24 [Rx Confirmed 07/30/24] left AFO brace #1 ea 01/31/24 [Rx Confirmed 07/30/24] metformin 500 mg tablet 500 mg PO BIDWMEAL 90 days #180 tabs 02/13/24 [Rx Confirmed 07/30/24] warfarin 4 mg tablet 4 mg PO DAILY #30 tabs 02/28/24 [Rx Confirmed 07/30/24] warfarin 5 mg tablet 5 mg PO DAILY #30 tabs 04/12/24 [Rx Confirmed 07/30/24] metoprolol tartrate 25 mg tablet 12.5 mg PO BID 04/19/24 [History Confirmed 07/30/24] naloxone 4 mg/actuation nasal spray (Narcan) 4 mg intranasal Q2M PRN opioid overdose #2 ea 05/29/24 [Rx Confirmed 07/30/24] warfarin 3 mg tablet 3 mg PO DAILY #30 tabs 05/29/24 [Rx Confirmed 07/30/24] hydromorphone 4 mg tablet (Dilaudid) 4 mg PO BID PRN pain 30 days #60 tabs 06/20/24 [Rx Confirmed 07/30/24] miscellaneous medical supply See Rx Instructions miscellaneous .COMPLEX #1 ea 06/20/24 [Rx Confirmed 07/30/24] hydrocodone 10 mg-acetaminophen 325 mg tablet 1 tab PO Q8H PRN pain 7 days #21 tabs 07/16/24 [Rx Confirmed 07/30/24] Discharge Plan Discharge Patient Disposition: Xfer Other Condition: Stable Prescriptions: No Action acetaminophen [Tylenol] 325 mg tablet 325 mg PO QID PRN (Reason: Pain, Mild) cyclobenzaprine 10 mg tablet 10 mg PO TID 90 Days Qty: 270 1RF gabapentin 600 mg tablet 600 mg PO TID 90 Days Qty: 270 1RF pantoprazole 40 mg tablet,delayed release (DR/EC) 40 mg PO DAILY 90 Days Qty: 90 1RF (DME) left AFO brace See Rx Instructions .Route .MEDSUPPLY Qty: 1 0RF Rx Instructions: As directed metformin 500 mg tablet 500 mg PO BIDWMEAL 90 Days Qty: 180 1RF warfarin 4 mg tablet 4 mg PO DAILY Qty: 30 0RF Protocol: Dose Management Condition: Tuesday Dose/Route: 3 mg Instruction: 1 x 3 mg tablet Condition: Tuesday Dose/Route: 4 mg Instruction: 1 x 4 mg tablet Condition: Tuesday Dose/Route: 3 mg Instruction: 1 x 3 mg tablet Condition: Tuesday Dose/Route: 4 mg Instruction: 1 x 4 mg tablet Condition: Dose/Route: 3 mg Instruction: 1 x 3 mg tablet Condition: Tuesday Dose/Route: 4 mg Instruction: 1 x 4 mg tablet Condition: Tuesday Dose/Route: 3 mg Instruction: 1 x 3 mg tablet Protocol Text: Adjustment Start Date: 06/28/24 INR Value: 46.30 SECONDS INR Date: 06/28/24 Recheck Date: 07/05/24 warfarin 3 mg tablet 3 mg PO DAILY Qty: 30 2RF Protocol: Dose Management Condition: Tuesday Dose/Route: 3 mg Instruction: 1 x 3 mg tablet Condition: Tuesday Dose/Route: 4 mg Instruction: 1 x 4 mg tablet Condition: Tuesday Dose/Route: 3 mg Instruction: 1 x 3 mg tablet Condition: Tuesday Dose/Route: 4 mg Instruction: 1 x 4 mg tablet Condition: Dose/Route: 3 mg Instruction: 1 x 3 mg tablet Condition: Tuesday Dose/Route: 4 mg Instruction: 1 x 4 mg tablet Condition: Tuesday Dose/Route: 3 mg Instruction: 1 x 3 mg tablet Protocol Text: Adjustment Start Date: 06/28/24 INR Value: 46.30 SECONDS INR Date: 06/28/24 Recheck Date: 07/05/24 naloxone [Narcan] 4 mg/actuation spray,non-aerosol 4 mg intranasal Q2M PRN (Reason: opioid overdose) Qty: 2 0RF Rx Instructions: spray 1 dose into ONE nostril (DME) off battery loader knee brace right See Rx Instructions .Route .MEDSUPPLY Qty: 1 0RF Rx Instructions: As directed metoprolol tartrate 25 mg tablet 12.5 mg PO BID hydromorphone [Dilaudid] 4 mg tablet 4 mg PO BID PRN (Reason: pain) 30 Days Qty: 60 0RF miscellaneous medical supply Misc See Rx Instructions miscellaneous .COMPLEX Qty: 1 0RF Rx Instructions: electric hospital bed as directed; warfarin 5 mg tablet 5 mg PO DAILY Qty: 30 0RF Protocol: Dose Management Condition: Tuesday Dose/Route: 3 mg Instruction: 1 x 3 mg tablet Condition: Tuesday Dose/Route: 4 mg Instruction: 1 x 4 mg tablet Condition: Tuesday Dose/Route: 3 mg Instruction: 1 x 3 mg tablet Condition: Tuesday Dose/Route: 4 mg Instruction: 1 x 4 mg tablet Condition: Dose/Route: 3 mg Instruction: 1 x 3 mg tablet Condition: Tuesday Dose/Route: 4 mg Instruction: 1 x 4 mg tablet Condition: Tuesday Dose/Route: 3 mg Instruction: 1 x 3 mg tablet Protocol Text: Adjustment Start Date: 06/28/24 INR Value: 46.30 SECONDS INR Date: 06/28/24 Recheck Date: 07/05/24 hydrocodone-acetaminophen 10-325 mg tablet 1 tab PO Q8H PRN (Reason: pain) 7 Days Qty: 21 0RF Rx Instructions: For breakthrough pain between the Dilaudid Referrals: Nica Hernández MD [Primary Care Provider] - Patient Instructions: Opioid Safety Transfer Attestations Time Spent in Transfer Care: greater than 30 min Quality Metrics Clinical Quality Measures [ No reported AMI, CVA or VTE this stay] Coding Level of Care Code Acute Code for Chg Fwd Diagnoses Biliary obstruction K83.1 Enterocutaneous fistula K63.2 Hepatic artery aneurysm I72.8 Intra-abdominal infection after surgical procedure T81.40XA Presence of IVC filter Z95.828 History of DVT (deep vein thrombosis) Z86.718 Diabetes E11.9
--- NOTE | 2024-07-30 14:42 | P.CONIM_ITS ---
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 She has been dealing with this for a very long time, recently she got percutaneous drainage of the biliary system in an outside facility, she presented yesterday to the hospital after 1 of these drain has become occluded and the patient started to show evidence of infection. I was consulted for evaluation of the abdominal wound as patient does daily wound care and there is areas where there is significant irritation and bleeding from the subcutaneous tissue. 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 07/29/23 07/30/24 Unknown Rx cyclobenzaprine 10 mg tablet 10 mg PO TID 90 days #270 tabs 01/19/24 07/30/24 02/03/24 Rx gabapentin 600 mg tablet 600 mg PO TID 90 days #270 tabs 01/19/24 07/30/24 02/03/24 Rx pantoprazole 40 mg tablet,delayed 40 mg PO DAILY 90 days #90 tabs 01/19/24 07/30/24 02/03/24 Rx release left AFO brace #1 ea 01/31/24 07/30/24 Unknown Rx metformin 500 mg tablet 500 mg PO BIDWMEAL 90 days #180 02/13/24 07/30/24 Unknown Rx tabs warfarin 4 mg tablet 4 mg PO DAILY #30 tabs 02/28/24 07/30/24 Unknown Rx warfarin 5 mg tablet 5 mg PO DAILY #30 tabs 04/12/24 07/30/24 Unknown Rx metoprolol tartrate 25 mg tablet 12.5 mg PO BID 04/19/24 07/30/24 Unknown History naloxone 4 mg/actuation nasal 4 mg intranasal Q2M PRN opioid 05/29/24 07/30/24 Unknown Rx spray (Narcan) overdose #2 ea warfarin 3 mg tablet 3 mg PO DAILY #30 tabs 05/29/24 07/30/24 Unknown Rx hydromorphone 4 mg tablet 4 mg PO BID PRN pain 30 days #60 06/20/24 07/30/24 Unknown Rx (Dilaudid) tabs miscellaneous medical supply See Rx Instructions miscellaneous 06/20/24 07/30/24 Unknown Rx .COMPLEX #1 ea hydrocodone 10 mg-acetaminophen 1 tab PO Q8H PRN pain 7 days #21 07/16/24 07/30/24 Unknown Rx 325 mg tablet tabs Allergies Allergy/AdvReac Type Severity Reaction Status Date / Time pork derived (porcine) Allergy Intermediate pentecostal Verified 07/29/24 17:27 reasons Alpha-Gal Allergy unknown Verified 07/29/24 17:27 ([id number]-7,3-Gala shellfish derived AdvReac Intermediate ADR-Confusi Verified 07/29/24 17:27 on Current Medications Generic Name Dose Route Start Last Admin Trade Name Freq PRN Reason Stop Dose Admin Acetaminophen 650 mg 07/30/24 04:03 07/30/24 04:09 Acetaminophen 325 Mg Tablet PO 650 mg Q6H PRN Administration MILD PAIN Hydrocodone Bitart/Acetaminophen 1 tab 07/29/24 23:32 07/30/24 11:35 Hydrocodone-Acetaminophen 10-325 Mg Tablet PO 1 tab Q8H PRN Administration pain Apixaban 5 mg 07/29/24 23:32 07/30/24 09:37 Apixaban 5 Mg Tablet PO Not Given BID@0900,2100 [facility] Cyclobenzaprine HCl 10 mg 07/30/24 09:00 07/30/24 09:21 Cyclobenzaprine 10 Mg Tablet PO 10 mg TID JOSE ELIAS Administration Gabapentin 600 mg 07/30/24 09:00 07/30/24 09:40 Gabapentin 300 Mg Capsule PO Not Given TID [facility] Hydromorphone HCl 4 mg 07/29/24 23:32 07/30/24 00:19 Hydromorphone 4 Mg Tablet PO 4 mg BID PRN Administration pain Vancomycin HCl 1,500 mg in 300 mls @ 200 mls/hr 07/30/24 11:00 07/30/24 13:30 Vancocin IV Infused Q12H JOSE ELIAS Infusion Potassium Chloride/Sodium Chloride 20 meq in 1,000 mls @ 100 mls/hr 07/29/24 23:32 07/30/24 11:23 Sodium Chlor 0.9% + Kcl 20 Meq IV 100 mls/hr .Q10H JOSE ELIAS Administration Insulin Human Lispro 0 unit 07/30/24 08:00 07/30/24 11:46 Insulin Lispro 100 Unit/1 Ml SUBCUT Not Given WM&BEDTIME JOSE ELIAS Protocol Metformin HCl 500 mg 07/29/24 23:32 07/30/24 09:40 Metformin 500 Mg Tablet PO Not Given BIDWM JOSE ELIAS Metoprolol Tartrate 12.5 mg 07/30/24 09:00 07/30/24 09:21 Metoprolol Tartrate 25 Mg Tablet PO 12.5 mg BID JOSE ELIAS Administration Pantoprazole Sodium 40 mg 07/30/24 09:00 07/30/24 09:[address] 40 Mg Tablet PO 40 mg DAILY JOSE ELIAS Administration PFSH Acute 2 PFSH: Medical History (Updated 07/29/24 @ 23:07 by Darnell Abbasi MD) Diabetes History of DVT (deep vein thrombosis) Presence of IVC filter Enterocutaneous fistula Biliary obstruction Allergy to alpha-gal No pertinent family history Surgical History History of orthopedic surgery Left femur fracture repair S/P aneurysm repair Hepatic aneurysm with stent placed History of abdominal surgery Bile duct repair, repair of bowel injury Hx of cholecystectomy Family History Father Hypertension Denies family history of Diabetes Clotting disorder Bleeding disorder Cancer Stroke Social History Smoking and tobacco/nicotine status: former use of tobacco/nicotine Alcohol intake: never Female Reproductive History: Para: 2 Spontaneous abortions: Yes (1) Vitals/I&O/Wt Last Vital Signs Temp 97.9 F 07/30/24 11:55 Pulse 81 07/30/24 11:55 Resp 17 07/30/24 11:55 BP 101/50 07/30/24 11:55 Pulse Ox 98 07/30/24 11:55 O2 Del Method Room Air 07/30/24 11:55 07/29/24 07/30/24 07/30/24 22:59 06:59 14:59 Intake Total 1570 / 1570 1780 / 1780 Balance 1570 / 1570 1780 / 1780 Weight last 48 hrs Weight 230 lb Weight 230 lb Weight 232 lb Physical Exam 2 GI: OTHER: Abdominal examination is benign at this time, there are some cellulitis at the level of the drain insertion site on the right hemiabdomen. In the mid abdomen there is a large area of epithelialization with small hole in the middle representing an enterocutaneous fistula, and the upper portion of this wound there is some erosion of the superficial layer of the skin with some granulation tissue at the base. At the moment there is no bleeding. Data 07/30/24 03:46 07/30/24 03:46 Micro: Microbiology 07/29/24 22:49 Gram Stain - Final Liver 07/29/24 22:50 Gram Stain - Final Liver 07/29/24 17:37 Blood Culture - Preliminary Blood SPECIMEN COLLECTED 07/29/24 17:34 Blood Culture - Preliminary Blood SPECIMEN COLLECTED A&P Assessment and plan (1) Biliary tube obstruction: Qualifiers: Encounter type: sequela Qualified Code(s): T85.590S - Other mechanical complication of bile duct prosthesis, sequela (2) Presence of IVC filter: (3) Intra-abdominal infection after surgical procedure: Plan This is a very complex patient who has had major surgery in outside hospital and had required recent biliary drainage also in outside hospital. I was consulted for evaluation and wound care. Regarding her intra-abdominal pathology and biliary pathology, there is no additional intervention we can offer in our institution patient should be transfer back to higher level of care for evaluation by IR and hepatobiliary as needed. Regarding wound care of the abdominal wound, I will provide wound care on a daily basis while the patient is in-house, I will do this just with saline placing Adaptic over the areas where the skin is eroding. At the moment there is no bleeding there is no need for any additional intervention. -General Surgery will continue with daily wound care of midline wound -There is no additional recommendations regarding management of intra-abdominal pathology, this needs to be managed by subspecialty in a higher level of care. Patient at the moment is awaiting transfer and has been accepted to [facility] Coding Level of Care Code 75834 Diagnoses Biliary tube obstruction, sequela T85.590S Encounter type: sequela Presence of IVC filter Z95.828 Intra-abdominal infection after surgical procedure T81.40XA
[2024-07-30 16:33] LABS: Glucose Point of Care 137 mg/dL (70-110)
[2024-07-30 20:48] LABS: Glucose Point of Care 132 mg/dL (70-110)
--- NOTE | 2024-07-30 21:13 | PC.NURSE ---
Addendum entered by Jessica Rios RN 07/30/24 22:44: This RN was told that the pt called the desk to have the nurse empty her drains and give her pain medicine This RN emptied the drains an hour prior to the phone call. This RN went in to talk to the pt and she was resting comfortably in bed and denied being in pain. I will hit the call light when I want something for pain . This RN educated the pt to use the call light to ask for assistance. Pt demonstrated understanding. Original Note: This RN went to give the pt her bedtime eliquis and gabapentin. Pt refused both of these medications. Pt states she has not taken eliquis for over a month in case someone wants to do surgery on me . This RN explained the importance of the medication and that if they need to do surgery they can not give it to you before or they can give you a reversal agent. Pt still refused medication. Pt refused her gabapentin d/t her alpha-gal allergy, she said the capsule coating contains pork and she can not take it. notified and made aware.
[2024-07-31] VITALS (10 sets, daily range): BP systolic 101–130; BP diastolic 51–83; PULSE 69–76; RESP 17–20; TEMP 36.7–37.1; O2SAT 94–98
[2024-07-31] MEDS: sodium chlor 0.9% + KCl 20 mEq 20 MEQ/1,000 ML BAG 100 MEQ IV ×2 (05:41→15:42)
[2024-07-31 06:03] LABS: Basophils % 0.3 %; Eosinophils # 0.4 10^3/uL (0.0-0.8); Eosinophils % 6.3 %; Hematocrit 29.9 % (36-47); Lymphocytes # 0.7 10^3/uL (0.8-4.8); Lymphocytes % 9.6 %; Mean Corpuscular HGB Conc 30.4 g/dL (30-55); Mean Corpuscular Hemoglobin 26.5 pg (27-33); Mean Corpuscular Volume 86.9 fl (85-98); Mean Platelet Volume 10.1 fL (7.4-10.4); Monocytes # 0.5 10^3/uL (0.2-0.9); Monocytes % 7.1 %; Neutrophils # 5.17 10^3/uL (1.8-7.7); Neutrophils % 76.3 %; Nucleated Red Blood Cells % 0 %; Platelet Count 152 10^3/cmm (157-399); Red Blood Count 3.44 10^6/uL (3.85-5.65); Red Cell Distribution Width 16.8 % (12.1-15.1); White Blood Count 6.78 10^3/uL (3.29-11.43)
[2024-07-31 06:22] LABS: Alanine Aminotransferase 12 U/L (0-33); Albumin Level 2.8 g/dL (3.5-5.2); Alkaline Phosphatase 247 U/L (35-105); Aspartate Amino Transferase 16 U/L (0-32); Blood Urea Nitrogen 14 mg/dL (6-20); Calcium 7.9 mg/dL (8.5-10.5); Carbon Dioxide 20 mmol/L (22-29); Chloride 107 mmol/L (98-107); Creatinine Clr Calc Pharmacy 139.2048; Globulin 3.1 g/dL (1.3-4.6); Glomerular Filtration Rate 126.7 mL/min (90-130); Glucose 126 mg/dL (65-115); Magnesium 1.8 mg/dL (1.7-2.3); Osmolality Calculated 288 mOsm/kg (285-295); Sodium 138 mmol/L (136-145); Total Bilirubin 1.1 mg/dL (0.15-1.2); Total Protein 5.9 g/dL (6.6-8.7)
[2024-07-31 06:32] LABS: Glucose Point of Care 134 mg/dL (70-110)
--- NOTE | 2024-07-31 07:26 | PM.PN ---
Subjective Subjective: Stable this morning, continues to complain of pain at the level of the drain insertion site in the upper right quadrant. Has been afebrile Vitals/I&O/Wt Last Vital Signs Temp 98.2 F 07/31/24 07:22 Pulse 76 07/31/24 07:22 Resp 18 07/31/24 04:00 BP 101/51 07/31/24 07:22 Pulse Ox 94 07/31/24 07:22 O2 Del Method Room Air 07/31/24 07:22 07/30/24 07/31/24 07/31/24 22:59 06:59 14:59 Intake Total 1346.667 / 3606.667 1263.333 / 4870.000 Output Total 600 / 600 250 / 850 Balance 746.667 / 3006.667 1013.333 / 4020.000 Weight last 48 hrs Weight 230 lb 9.6 oz Weight 230 lb Weight 230 lb Weight 232 lb Physical Exam GI: OTHER: In the right upper quadrant at the level of the drain insertion site, there is cellulitis of the skin and subcutaneous tissue, there is tender no overt abscess. The midline wound is healthy wound care was done today. Data 07/31/24 05:16 07/31/24 05:16 Micro: Microbiology 07/29/24 17:37 Blood Culture - Preliminary Blood NEGATIVE TO DATE 07/29/24 17:34 Blood Culture - Preliminary Blood NEGATIVE TO DATE 07/29/24 22:49 Gram Stain - Final Liver 07/29/24 22:50 Gram Stain - Final Liver A&P Assessment and plan (1) Intra-abdominal infection after surgical procedure: (2) Abdominal wall ulcer: Qualifiers: Non-pressure ulcer stage: limited to breakdown of skin Qualified Code(s): L98.491 - Non-pressure chronic ulcer of skin of other sites limited to breakdown of skin (3) Enterocutaneous fistula: Plan Patient is showing good progression regarding her midline wound, wound care was done today without complications. Right upper quadrant drains are in place, there is some cellulitis in the surrounding skin to the drains. Patient is awaiting transfer to [facility] for replacement of the drains. Attestations Medical Necessity Statement*: Per medical team Coding Level of Care Code Acute Code for [facility] Diagnoses Intra-abdominal infection after surgical procedure T81.40XA Ulcer of abdomen wall, limited to breakdown of skin L98.491 Non-pressure ulcer stage: limited to breakdown of skin Enterocutaneous fistula K63.2
[2024-07-31] MEDS: pantoprazole DR 40 mg Tablet PO (08:50)
[2024-07-31] MEDS: cyclobenzaprine 10 mg Tablet PO ×3 (08:50→20:29)
[2024-07-31 11:12] LABS: Glucose Point of Care 135 mg/dL (70-110)
[2024-07-31] MEDS: vancomycin 1,500 MG/300 ML PIGGYBACK 200 MG IV (11:22)
--- NOTE | 2024-07-31 13:18 | P.PN_ITS ---
Subjective 2 Subjective: Seen this morning. Patient complains of worsening pain in right upper quadrant area and worsening tenderness. She is very tender to even the light touch. Drains have minimal drainage at this time. Few hours later came to the hospital. Patient was in significant pain at that time. She was tearful. wanted to get her discharged. Discussed with and patient at the bedside that she needs interventional radiology and hepatobiliary services at this time which we do not have. She has been accepted for transfer to [facility] however waiting for a bed at this time. Dressing changes are being done by general surgery at this time. There is cellulitis and redness present at drain insertion site. He is currently on antibiotics. Patient's white count has improved. She has been afebrile overnight. Saturating 98% on room air. We decided we will increase her pain medication at this point. Also had a long discussion with the regarding not to increase pain medication to the point where she starts getting respiratory depression. Called [facility] and discussed case with Dr. Gregory interventional radiologist attempt to expedite transfer. I did discuss with him patient CT scan results and that clinically she is in a lot more pain in that area is very tender. Is having worsening pain at this time. Discussed the importance of transfer since we do not have above services available. [facility] states they will try to expedite transfer at this time and we will try to get her over there within 24 hours. I also discussed with Dr. Shanda Claros earlier if there was anything he could surgically offer for the patient and unfortunately he cannot. He also talk with family. Nurses present at bedside as well. Vitals/I&O/Wt Last Vital Signs Temp 98.1 F 07/31/24 11:33 Pulse 69 07/31/24 11:33 Resp 18 07/31/24 13:03 BP 125/78 07/31/24 11:33 Pulse Ox 98 07/31/24 11:33 O2 Del Method Room Air 07/31/24 11:33 07/30/24 07/31/24 07/31/24 22:59 06:59 14:59 Intake Total 1346.667 / 3606.667 1263.333 / 4870.000 120 / 120 Output Total 600 / 600 250 / 850 Balance 746.667 / 3006.667 1013.333 / 4020.000 120 / 120 Weight last 48 hrs Weight 104.598 kg Weight 104.326 kg Weight 104.326 kg Weight 105.233 kg Physical Exam 2 Narrative: General Well-developed well-nourished obese white female resting somewhat comfortably in bed however does complain of abdominal pain. Patient appears tearful at this time. CV regular rate and rhythm She has a 3/6 systolic ejection murmur best heard left sternal border Lungs clear to auscultation bilaterally Abdomen positive bowel sounds, very tender over the right upper quadrant where it is swollen and warm. Redness present at drain insertion sites. Patient significantly tender to palpation around this area. Definite worsening of pain compared to yesterday. Extremities: No edema bilateral lower extremities. Data 07/31/24 05:16 07/31/24 05:16 Micro: Microbiology 07/29/24 22:49 Gram Stain - Final Liver Wound Culture - Preliminary 07/29/24 22:50 Gram Stain - Final Liver Wound Culture - Preliminary Gram Negative Rods 07/29/24 19:05 Urine Culture - Preliminary Urine,Clean Catch 07/29/24 17:37 Blood Culture - Preliminary Blood NEGATIVE TO DATE 07/29/24 17:34 Blood Culture - Preliminary Blood NEGATIVE TO DATE A&P Assessment and plan (1) Biliary obstruction: Patient has internal stents that I do not think are draining well she has abdominal pain white count with nausea and and pain worsening after the drains were capped. I uncap them and sent 5 cc from each of the anterior and posterior drains for Gram stain and culture. We do not have the right bags for this so she are using 10 cc syringes extended but not under pressure to allow drainage from the liver. 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 She states that has drained stool initially and slowly decreased. They are not operating due to high risk of surgery and hope that this will close on its own (3) Hepatic artery aneurysm: Reportedly has a stent (4) Intra-abdominal infection after surgical procedure: This was extensive post surgery in July. Currently I think the biliary system is infected with a air and stranding of fat. Treat with vancomycin and Zosyn pending cultures (5) Presence of IVC filter: Will start anticoagulation with apixaban for filter and history of DVT (6) History of DVT (deep vein thrombosis): See above (7) Diabetes: Lactic acid was normal continue with metformin start sliding scale insulin and 1600 -calorie ADA diet Plan 07/31 ? See HPI portion of note. ? Change pain regiment and increased doses of Dilaudid and hydrocodone ? Continue IV antibiotics at this time. Continue vancomycin and Zosyn at this time ? Continue to check labs CBC CMP daily ? Awaiting transfer to [facility] at this time. ? Continue dressing changes per general surgery. ? General Surgery following. Appreciate recommendations at this time ? Personally discussed with IR at [facility] in attempt to expedite transfer. Attestations 2 Medical Necessity Statement*: Awaiting transfer to [facility] Diagnoses Biliary obstruction K83.1 Enterocutaneous fistula K63.2 Hepatic artery aneurysm I72.8 Intra-abdominal infection after surgical procedure T81.40XA Presence of IVC filter Z95.828 History of DVT (deep vein thrombosis) Z86.718 Diabetes E11.9
[2024-07-31] MEDS: GABAPENTIN 600 MG TAB 1 EACH PO ×2 (15:14→20:30)
[2024-07-31] MEDS: piperacillin-tazobactam 3.375 GM in sodium chloride 0.9% (plus) 50 ML IV (15:14)
[2024-07-31 16:09] LABS: Glucose Point of Care 115 mg/dL (70-110)
[2024-07-31] MEDS: HYDROcodone-acetaminophen 10-325 mg Tablet 1 TAB PO ×2 (16:13→20:30)
[2024-07-31] MEDS: meropenem 1,000 mg SDV 1000 MG IVP (16:14)
--- NOTE | 2024-07-31 16:38 | PC.NURSE ---
Pts was stating that he was going to take (pt) out of hospital and expected to have doctor discharge her and he was taking her home. This nurse notified Dr. Jane and ELLEN Leyva. states that this was a inadequate hospital, rooms too small and was not getting pain addressed. This nurse stated that everytime student nurse and I came in we asked if she needed pain pills or comfort level. would say she did not need any pain medicine now. This nurse informed it would be leaving against medical advise. He argued that he would just dress her and take her. was asked what she wanted and she just answer but I have waited so long. Gordon HUGHES, Dr. Jane and Dr. Sauer entered room to speak with pt and .
--- NOTE | 2024-07-31 20:31 | PC.NURSE ---
Addendum entered by Shraddha Ritchie RN 08/01/24 01:33: Dr. Nieto notified of this. Dr. Nieto also notified that patient typically takes Coumadin at home and that patient had a history of DVT. Dr. Nieto ordered Coumadin. Patient refused this, stating I haven't taken it in a month because I'm supposed to have a procedure in [place]. Patient educated that we do not know when this procedure will be and that with her history of DVT, she needs to take it. Patient still refuses. Original Note: Patient refusing PO Eliqus, stating that she is allergic to it.
[2024-07-31 21:18] LABS: Glucose Point of Care 125 mg/dL (70-110)
[2024-08-01] VITALS (7 sets, daily range): BP systolic 104–145; BP diastolic 60–84; PULSE 63–87; RESP 12–18; TEMP 36.4–36.8; O2SAT 92–97; BMI 42.0
--- NOTE | 2024-08-01 00:01 | PC.NURSE ---
Telepharmacy notified of vanc trough of 20.0. She stated to go ahead and give current dose as ordered.
[2024-08-01] MEDS: vancomycin 1,500 MG/300 ML PIGGYBACK 200 MG IV ×2 (00:03→11:09)
[2024-08-01] MEDS: sodium chlor 0.9% + KCl 20 mEq 20 MEQ/1,000 ML BAG 100 MEQ IV ×2 (01:28→11:09)
[2024-08-01] MEDS: meropenem 1,000 mg SDV 1000 MG IVP ×2 (01:36→08:23)
[2024-08-01] MEDS: HYDROcodone-acetaminophen 10-325 mg Tablet 1 TAB PO ×2 (01:41→11:08)
--- NOTE | 2024-08-01 02:19 | PC.NURSE ---
Patient refuses to wear ID band, stating that she is allergic to the material. ID band is at patient's bedside. Patient educated that it is a safety issue to not wear the ID band. Patient still refuses, again, stating that she is allergic to the plastic on it. Patient's name and date of have been verified verbally with patient prior to administering any medication.
[2024-08-01 05:26] LABS: Basophils % 0.2 %; Eosinophils # 0.4 10^3/uL (0.0-0.8); Eosinophils % 7.5 %; Hematocrit 29.8 % (36-47); Lymphocytes # 0.9 10^3/uL (0.8-4.8); Lymphocytes % 17.8 %; Mean Corpuscular HGB Conc 29.2 g/dL (30-55); Mean Corpuscular Hemoglobin 25.7 pg (27-33); Mean Corpuscular Volume 88.2 fl (85-98); Mean Platelet Volume 9.8 fL (7.4-10.4); Monocytes # 0.4 10^3/uL (0.2-0.9); Monocytes % 8.1 %; Neutrophils # 3.19 10^3/uL (1.8-7.7); Nucleated Red Blood Cells % 0 %; Platelet Count 154 10^3/cmm (157-399); Red Blood Count 3.38 10^6/uL (3.85-5.65); Red Cell Distribution Width 16.7 % (12.1-15.1); White Blood Count 4.83 10^3/uL (3.29-11.43)
[2024-08-01 05:32] LABS: INR 1.19 (0.8-1.2)
[2024-08-01 05:45] LABS: Alanine Aminotransferase 11 U/L (0-33); Albumin Level 2.9 g/dL (3.5-5.2); Alkaline Phosphatase 192 U/L (35-105); Anion Gap 11.3 (5-19); Aspartate Amino Transferase 12 U/L (0-32); Blood Urea Nitrogen 8 mg/dL (6-20); C Reactive Protein 97.4 mg/L (0.0-4.9); Carbon Dioxide 21 mmol/L (22-29); Chloride 112 mmol/L (98-107); Creatinine Clr Calc Pharmacy 174.0061; Globulin 2.6 g/dL (1.3-4.6); Glomerular Filtration Rate 163.9 mL/min (90-130); Glucose 133 mg/dL (65-115); Magnesium 1.8 mg/dL (1.7-2.3); Osmolality Calculated 290 mOsm/kg (285-295); Potassium 4.3 mmol/L (3.5-5.1); Sodium 140 mmol/L (136-145); Total Bilirubin 0.6 mg/dL (0.15-1.2); Total Protein 5.5 g/dL (6.6-8.7)
[2024-08-01] MEDS: pantoprazole DR 40 mg Tablet PO (08:23)
[2024-08-01] MEDS: cyclobenzaprine 10 mg Tablet PO ×2 (08:24→13:10)
[2024-08-01] MEDS: GABAPENTIN 600 MG TAB 1 EACH PO (09:58)
--- NOTE | 2024-08-01 10:25 | P.PN_ITS ---
Subjective 2 Subjective: Doing well this morning, endorses better pain control in the right upper quadrant. Vitals have remained stable. Vitals/I&O/Wt Last Vital Signs Temp 98.1 F 08/01/24 07:15 Pulse 83 08/01/24 07:15 Resp 18 08/01/24 07:15 BP 115/66 08/01/24 07:15 Pulse Ox 92 08/01/24 07:15 O2 Del Method Room Air 08/01/24 07:15 07/31/24 08/01/24 08/01/24 22:59 06:59 14:59 Intake Total 1770 / 2190 1276.667 / 3466.667 Output Total 225 / 225 125 / 350 Balance 1545 / 1965 1151.667 / 3116.667 Weight last 48 hrs Weight 229 lb 11.547 oz Weight 229 lb 11.547 oz Weight 230 lb 9.6 oz Physical Exam 2 GI: OTHER: Currently abdominal examination is benign, midline incision with small fistula opening, no additional bleeding, no evidence of infection at this level. Right upper quadrant cellulitis appears to be slightly improved from yesterday, drains are in place. Data 08/01/24 05:08 08/01/24 05:08 Micro: Microbiology 07/29/24 19:05 Urine Culture - Final Urine,Clean Catch 07/29/24 22:49 Gram Stain - Final Liver Wound Culture - Preliminary 07/29/24 22:50 Gram Stain - Final Liver Wound Culture - Preliminary Gram Negative Rods A&P Assessment and plan (1) Enterocutaneous fistula: (2) Biliary obstruction: (3) Biliary tube obstruction: Qualifiers: Encounter type: sequela Qualified Code(s): T85.590S - Other mechanical complication of bile duct prosthesis, sequela Plan Patient showing adequate progression with no of her clinical condition, she is awaiting transfer to [facility] to have her biliary drain replaced. At the moment there is no indication for any additional surgical intervention, there is no need for debridement or incision of the abdominal wall on the right upper quadrant as inflammation appears to be only cellulitis. Her white count and labs have been improving. Bilirubin has been stable. We will continue to follow-up for daily wound care while the patient is in-house. Attestations 2 Medical Necessity Statement*: Awaiting transfer, Coding Level of Care Code Acute Code for [facility] Diagnoses Enterocutaneous fistula K63.2 Biliary obstruction K83.1 Biliary tube obstruction, sequela T85.590S Encounter type: sequela
[2024-08-01 11:28] LABS: Glucose Point of Care 135 mg/dL (70-110)
--- NOTE | 2024-08-01 13:27 | PC.NURSE ---
Pt requests that patient be transferred to a lower-level of care such as ER or clinic for evaluation and transfer. He states this will expedite the transfer to [facility]. This RN explains that we cannot transfer to a lower-level of care. Dr. Jane aware, and offers to call other hospitals in [place], [place], and [facility]. Pt refuses to have these hospitals called, stating she only wants [facility] or [facility] (which is out of network, so that is a last option). Pt becomes increasingly agitated with this RN each time care is provided. He yells at this nurse, stating you cannot hold her here if you cannot provide the care! This RN reiterates all the above, and states that we are trying to get her a bed at [facility] calls [facility] himself, a malpractice jackscrew worker, and the insurance company to attempt to expedite the process. Daniela Arguelles, compliance clerk, notified of situation.
--- NOTE | 2024-08-01 14:27 | P.PN_ITS ---
Subjective 2 Subjective: Seen this morning. No acute events overnight. Patient states after changing pain medication dosages her pain is much better controlled. Redness around right upper quadrant area is slightly improved compared to yesterday. Patient was switched over to meropenem yesterday. Previously she had Zosyn on board. Wound cultures are growing gram-positive cocci in clusters. Final sensitivity speciation is pending at this time. Patient being continued on vancomycin in the meantime. Patient has been refusing her warfarin. Vitals/I&O/Wt Last Vital Signs Temp 97.7 F 08/01/24 11:26 Pulse 87 08/01/24 11:26 Resp 18 08/01/24 11:26 BP 129/84 08/01/24 11:26 Pulse Ox 96 08/01/24 11:26 O2 Del Method Room Air 08/01/24 11:26 07/31/24 08/01/24 08/01/24 22:59 06:59 14:59 Intake Total 1770 / 2190 1276.667 / 3466.667 1987.333 / 1987.333 Output Total 225 / 225 125 / 350 Balance 1545 / 1965 1151.667 / 3116.667 333 / 1987.333 Weight last 48 hrs Weight 104.2 kg Weight 104.2 kg Weight 104.598 kg Physical Exam 2 Narrative: General Well-developed well-nourished obese white female sitting up on edge of bed eating at this time. CV regular rate and rhythm She has a 3/6 systolic ejection murmur best heard left sternal border Lungs clear to auscultation bilaterally Abdomen positive bowel sounds, tender over the right upper quadrant where it is swollen and warm. Redness present at drain insertion sites however improved since yesterday.. Extremities: No edema bilateral lower extremities. Data 08/01/24 05:08 08/01/24 05:08 Micro: Microbiology 07/29/24 22:49 Gram Stain - Final Liver Wound Culture - Preliminary Gram Negative Rods 07/29/24 22:50 Gram Stain - Final Liver Wound Culture - Preliminary Gram Negative Rods 07/29/24 19:05 Urine Culture - Final Urine,Clean Catch A&P Assessment and plan (1) Biliary obstruction: Patient has internal stents that I do not think are draining well she has abdominal pain white count with nausea and and pain worsening after the drains were capped. I uncap them and sent 5 cc from each of the anterior and posterior drains for Gram stain and culture. We do not have the right bags for this so she are using 10 cc syringes extended but not under pressure to allow drainage from the liver. 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 She states that has drained stool initially and slowly decreased. They are not operating due to high risk of surgery and hope that this will close on its own (3) Hepatic artery aneurysm: Reportedly has a stent (4) Intra-abdominal infection after surgical procedure: This was extensive post surgery in July. Currently I think the biliary system is infected with a air and stranding of fat. Treat with vancomycin and Zosyn pending cultures (5) Presence of IVC filter: Will start anticoagulation with apixaban for filter and history of DVT (6) History of DVT (deep vein thrombosis): See above (7) Diabetes: Lactic acid was normal continue with metformin start sliding scale insulin and 1600 -calorie ADA diet Plan 08/01 ? Continue pain management as per new regimen. ? Continue IV antibiotics at this time. Continue vancomycin and meropenem at this time ? Continue to check labs CBC CMP daily ? Awaiting transfer to [facility] at this time. ? Continue dressing changes per general surgery. ? General Surgery following. Appreciate recommendations at this time ? Personally discussed with IR at [facility] in attempt to expedite transfer 08/01/2024-patient was offered to try to transfer to [place] versus [place] versus [place] versus [place] however she would only like to go to [place] at this time. I will attempt to call [facility] and try for transfer there as we are still waiting for a bed at [facility]. Patient agreeable to above. Attestations 2 Medical Necessity Statement*: Awaiting transfer, Diagnoses Biliary obstruction K83.1 Enterocutaneous fistula K63.2 Hepatic artery aneurysm I72.8 Intra-abdominal infection after surgical procedure T81.40XA Presence of IVC filter Z95.828 History of DVT (deep vein thrombosis) Z86.718 Diabetes E11.9
--- NOTE | 2024-08-01 14:52 | PC.NURSE ---
Carol notifies this RN that pt is transferring to [facility] in room [address]. Dr. Yost is the accepting physician for malfunctioning drain. Report called to Elayne at [phone]. All questions answered at this time. Notifies Randall of EMS ride needed to [facility]. Notifies pt of transfer. COBRA and PCS form completed.
--- NOTE | 2024-08-01 15:03 | PC.NURSE ---
Notified Dr. Jane of transfer to [facility]
== END 2024-08-01 16:01 | disposition short-term general hospital (02) | DRG 862 ==
LOC: ER 21:21 → MEDSURG 22:23
PROVIDERS: Emergency Medicine; Internal Medicine; Admitting Provider Internal Medicine; Emergency Provider Emergency Medicine; PCP Family Medicine; Visit Provider Internal Medicine
DX: T81.43XA Infection following a procedure, organ and space surgical site, initial encounter (principal); K65.8 Other peritonitis; K83.1 Obstruction of bile duct; L03.311 Cellulitis of abdominal wall; Z68.41 Body mass index [BMI] 40.0-44.9, adult; K63.2 Fistula of intestine; N39.0 Urinary tract infection, site not specified; B96.1 Klebsiella pneumoniae [K. pneumoniae] as the cause of diseases classified elsewhere; B95.2 Enterococcus as the cause of diseases classified elsewhere; E11.9 Type 2 diabetes mellitus without complications; E66.9 Obesity, unspecified; L98.499 Non-pressure chronic ulcer of skin of other sites with unspecified severity; Z79.891 Long term (current) use of opiate analgesic; Z79.84 Long term (current) use of oral hypoglycemic drugs; Z79.01 Long term (current) use of anticoagulants; Z87.891 Personal history of nicotine dependence; Z75.1 Person awaiting admission to adequate facility elsewhere; Z95.828 Presence of other vascular implants and grafts; Z86.718 Personal history of other venous thrombosis and embolism; Y83.8 Other surgical procedures as the cause of abnormal reaction of the patient, or of later complication, without mention of misadventure at the time of the procedure
CPT/HCPCS: 36415; 36416; 74177; 80053; 80202; 81001; 82962; 83605; 83735; 84100; 85025; 85610; 86140; 87040; 87070; 87075; 87077; 87086; 87186; 87205; J1815; J2185; J2270; J2405; J2543; J3370; J3372; J3480; J7030

== ENCOUNTER → 2024-08-10 09:57 | Outpatient (BNVA) | payer OTHER, SELFPAY | PROVIDERS: PCP Family Medicine; Visit Provider Family Medicine | DX: Z51.81 Encounter for therapeutic drug level monitoring (principal); Z79.01 Long term (current) use of anticoagulants | CPT/HCPCS: 85610 ==

== ENCOUNTER → 2024-08-21 11:41 | Outpatient (BNVA) | payer OTHER, SELFPAY | PROVIDERS: PCP Family Medicine; Visit Provider Family Medicine | DX: R39.198 Other difficulties with micturition (principal); K83.1 Obstruction of bile duct; T85.590 Other mechanical complication of bile duct prosthesis; X58.XXXS Exposure to other specified factors, sequela; R30.0 Dysuria; Z51.81 Encounter for therapeutic drug level monitoring; Z79.01 Long term (current) use of anticoagulants | CPT/HCPCS: 80053; 81000; 82247; 82248; 85007; 85027; 85610; 87086 ==

== ENCOUNTER → 2024-08-27 10:26 | Outpatient (BNVA) | payer OTHER, SELFPAY | PROVIDERS: PCP Family Medicine; Visit Provider Family Medicine | DX: Z51.81 Encounter for therapeutic drug level monitoring (principal); Z79.01 Long term (current) use of anticoagulants | CPT/HCPCS: 85610 ==

== ENCOUNTER → 2024-09-03 15:01 | Outpatient (BNVA) | payer OTHER, SELFPAY | PROVIDERS: PCP Family Medicine; Referring Provider Family Medicine; Visit Provider Family Medicine | DX: Z51.81 Encounter for therapeutic drug level monitoring (principal); Z79.01 Long term (current) use of anticoagulants | CPT/HCPCS: 85610 ==

== ENCOUNTER → 2024-09-06 09:26 | Outpatient (BNVA) | payer OTHER, SELFPAY | PROVIDERS: PCP Family Medicine; Referring Provider Family Medicine; Visit Provider Family Medicine | DX: Z51.81 Encounter for therapeutic drug level monitoring (principal); Z79.01 Long term (current) use of anticoagulants | CPT/HCPCS: 80053; 82247; 82248; 85610 ==

== ENCOUNTER → 2024-09-11 09:35 | Outpatient (BNVA) | payer OTHER, SELFPAY | PROVIDERS: PCP Family Medicine; Visit Provider Family Medicine | DX: Z51.81 Encounter for therapeutic drug level monitoring (principal); Z79.01 Long term (current) use of anticoagulants | CPT/HCPCS: 85610 ==

== ENCOUNTER → 2024-09-18 09:32 | Outpatient (BNVA) | payer OTHER, SELFPAY | PROVIDERS: PCP Family Medicine; Referring Provider Family Medicine; Visit Provider Family Medicine | DX: Z51.81 Encounter for therapeutic drug level monitoring (principal); Z79.01 Long term (current) use of anticoagulants | CPT/HCPCS: 85610 ==

== ENCOUNTER → 2024-10-02 09:38 | Outpatient (BNVA) | payer OTHER, SELFPAY | PROVIDERS: PCP Family Medicine; Visit Provider Family Medicine | DX: Z51.81 Encounter for therapeutic drug level monitoring (principal); Z79.01 Long term (current) use of anticoagulants | CPT/HCPCS: 85610 ==

== ENCOUNTER 2024-10-05 16:41 | Emergency (ER) | payer OTHER, SELFPAY ==
[2024-10-05 16:49] VITALS: BP 144/78; PULSE 71; RESP 16; TEMP 36.7; O2SAT 100; BMI 43.0
[2024-10-05 17:00] VITALS: BP 132/65; PULSE 71; O2SAT 100
--- NOTE | 2024-10-05 17:04 | W.ED.RECABL ---
HPI - Recheck/Abnormal Lab/Rx General: Chief Complaint: Recheck/Abnormal Lab/Rx Stated Complaint: high level from blood work report Time Seen by Provider: 10/05/24 16:57 Source: patient Mode of arrival: ambulatory Limitations: no limitations History of Present Illness: 59-year-old female states she had her INR checked yesterday and was told that her INR was elevated she states that they told her was above 10 she was not able to get her PCP due to being close for the come here. She states that recently increased her Coumadin she states she is to take 3 every day now she takes 3 on Mondays and and 4 mg rest the days. 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 #1 ea 07/29/23 gabapentin 600 mg tablet 600 mg PO TID 90 days #270 tabs 01/19/24 pantoprazole 40 mg tablet,delayed 40 mg PO DAILY 90 days #90 tabs 01/19/24 release left AFO brace #1 ea 01/31/24 metformin 500 mg tablet 500 mg PO BIDWMEAL 90 days #180 02/13/24 tabs warfarin 5 mg tablet 5 mg PO DAILY #30 tabs 04/12/24 naloxone 4 mg/actuation nasal 4 mg intranasal Q2M PRN opioid 05/29/24 spray (Narcan) overdose #2 ea miscellaneous medical supply See Rx Instructions miscellaneous 06/20/24 .COMPLEX #1 ea warfarin 4 mg tablet 4 mg PO DAILY #30 tabs 08/10/24 hydrocodone 10 mg-acetaminophen 1 tab PO Q8H PRN pain 7 days #21 08/21/24 325 mg tablet tabs hydromorphone 4 mg tablet 4 mg PO BID PRN pain 30 days #60 08/21/24 (Dilaudid) tabs linezolid 600 mg tablet 600 mg PO Q12H 10 days #20 tabs 08/25/24 ondansetron 4 mg disintegrating 4 mg PO BID PRN nausea and 08/27/24 tablet vomiting #20 tabs cyclobenzaprine 10 mg tablet 10 mg PO TID 90 days #270 tabs 09/06/24 warfarin 3 mg tablet 3 mg PO DAILY #30 tabs 09/06/24 metoprolol tartrate 25 mg tablet See Rx Instructions .Route 10/02/24 .COMPLEX #60 tabs Allergies Allergy/AdvReac Type Severity Reaction Status Date / Time apixaban [From Eliquis] Allergy Severe ADR-Itching Verified 08/21/24 11:07 pork derived (porcine) Allergy Intermediate voodoo Verified 08/21/24 11:07 reasons Alpha-Gal Allergy unknown Verified 08/21/24 11:07 (Iyeobhrha-Vjrct-9,3-Gala piperacillin [From Zosyn] Allergy ALGY-Anaphy Verified 08/21/24 11:07 laxis tazobactam [From Zosyn] Allergy ALGY-Anaphy Verified 08/21/24 11:07 laxis shellfish derived AdvReac Intermediate ADR-Confusi Verified 08/21/24 11:07 on Review of Systems Const: Denies: fever(s), chills, body aches or change in appetite ENMT: Denies: throat pain or dental pain Card: Denies: chest pain Resp: Denies: dyspnea GI: Denies: abdominal pain, nausea, vomiting or diarrhea Musc: Denies: neck pain or back pain Neuro: Denies: headache(s) PFSH ED PFSH: Medical History Diabetes History of DVT (deep vein thrombosis) Presence of IVC filter Enterocutaneous fistula Biliary obstruction Allergy to alpha-gal No pertinent family history Surgical History History of orthopedic surgery Left femur fracture repair S/P aneurysm repair Hepatic aneurysm with stent placed History of abdominal surgery Bile duct repair, repair of bowel injury Hx of cholecystectomy Family History Father Hypertension Denies family history of Diabetes Clotting disorder Bleeding disorder Cancer Stroke Social History Smoking and tobacco/nicotine status: former use of tobacco/nicotine Alcohol intake: never Female Reproductive History: Para: 2 Spontaneous abortions: Yes (1) Physical Exam Const: COMMON NORMALS: no acute distress, patient oriented x3 and healthy appearing HENMT: COMMON NORMALS: normocephalic and atraumatic HEAD & SCALP: normocephalic and atraumatic Eye: COMMON NORMALS: conjunctivae normal CONJUNCTIVA: Yes conjunctivae normal Neck/C-Spine: COMMON NORMALS: full ROM and supple Chest: COMMONS NORMALS: normal inspection of the chest Resp: COMMON NORMALS: normal respiratory effort, No retractions, No use of accessory muscles and clear to auscultation bilaterally AUSCULTATION: clear to auscultation bilaterally Cardio: COMMON NORMALS: regular rate, regular rhythm and No murmurs present (Cardio) RATE: regular rate RHYTHM: regular rhythm Extremity: COMMON NORMALS: full ROM Neuro: COMMON NORMALS: patient oriented x3, moves all extremities and no focal motor deficits Psych: COMMON NORMALS: mental status grossly normal, Normal thought process present and cooperative THOUGHT PROCESS: Normal thought process present Skin: COMMON NORMALS: no wounds Course Vital Signs: Vital signs: Vital Signs Temperature 98.1 F 10/05/24 16:49 Pulse Rate 71 10/05/24 16:49 Respiratory Rate 16 10/05/24 16:49 Blood Pressure 144/78 10/05/24 16:49 Pulse Oximetry 100 10/05/24 16:49 Oxygen Delivery Me thod Room Air 10/05/24 16:49 MDM - Recheck/Abnormal Lab/Rx Medical Decision Making Patient presents here with concern of elevated INR INR here was 1.7 she is to continue her meds as prescribed follow-up with PCP she is at a therapeutic level return if worsening. Medical Records I reviewed the patient's medical records. Lab Data I reviewed the patient's lab results. Laboratory Results PT 21.40 SECONDS (12.1-14.9) H 10/05/24 18:00 INR 1.74 (0.8-1.2) H 10/05/24 18:00 No radiology studies performed this visit Discharge Plan Discharge Patient Disposition: Home Clinical Impression: Elevated INR Condition: Stable Prescriptions: No Action acetaminophen [Tylenol] 325 mg tablet 325 mg PO QID PRN (Reason: Pain, Mild) gabapentin 600 mg tablet 600 mg PO TID 90 Days Qty: 270 1RF pantoprazole 40 mg tablet,delayed release (DR/EC) 40 mg PO DAILY 90 Days Qty: 90 1RF (DME) left AFO brace See Rx Instructions .Route .MEDSUPPLY Qty: 1 0RF Rx Instructions: As directed metformin 500 mg tablet 500 mg PO BIDWMEAL 90 Days Qty: 180 1RF naloxone [Narcan] 4 mg/actuation spray,non-aerosol 4 mg intranasal Q2M PRN (Reason: opioid overdose) Qty: 2 0RF Rx Instructions: spray 1 dose into ONE nostril hydromorphone [Dilaudid] 4 mg tablet 4 mg PO BID PRN (Reason: pain) 30 Days Qty: 60 0RF hydrocodone-acetaminophen 10-325 mg tablet 1 tab PO Q8H PRN (Reason: pain) 7 Days Qty: 21 0RF Rx Instructions: For breakthrough pain between the Dilaudid (DME) 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 See Rx Instructions .Route .MEDSUPPLY Qty: 1 0RF Rx Instructions: As directed miscellaneous medical supply Misc See Rx Instructions miscellaneous .COMPLEX Qty: 1 0RF Rx Instructions: electric hospital bed as directed; warfarin 5 mg tablet 5 mg PO DAILY Qty: 30 0RF Protocol: Dose Management Condition: Tuesday Dose/Route: 4 mg Instruction: 1 x 4 mg tablet Condition: Tuesday Dose/Route: 3 mg Instruction: 1 x 3 mg tablet Condition: Tuesday Dose/Route: 4 mg Instruction: 1 x 4 mg tablet Condition: Tuesday Dose/Route: 4 mg Instruction: 1 x 4 mg tablet Condition: Dose/Route: 3 mg Instruction: 1 x 3 mg tablet Condition: Tuesday Dose/Route: 4 mg Instruction: 1 x 4 mg tablet Condition: Tuesday Dose/Route: 4 mg Instruction: 1 x 4 mg tablet Protocol Text: Adjustment Start Date: Tuesday10/02/24 INR Value: 21.70 SECONDS INR Date: 10/02/24 Recheck Date: 10/09/24 warfarin 4 mg tablet 4 mg PO DAILY Qty: 30 0RF Protocol: Dose Management Condition: Tuesday Dose/Route: 4 mg Instruction: 1 x 4 mg tablet Condition: Tuesday Dose/Route: 3 mg Instruction: 1 x 3 mg tablet Condition: Tuesday Dose/Route: 4 mg Instruction: 1 x 4 mg tablet Condition: Tuesday Dose/Route: 4 mg Instruction: 1 x 4 mg tablet Condition: Dose/Route: 3 mg Instruction: 1 x 3 mg tablet Condition: Tuesday Dose/Route: 4 mg Instruction: 1 x 4 mg tablet Condition: Tuesday Dose/Route: 4 mg Instruction: 1 x 4 mg tablet Protocol Text: Adjustment Start Date: Tuesday10/02/24 INR Value: 21.70 SECONDS INR Date: 10/02/24 Recheck Date: 10/09/24 linezolid 600 mg tablet 600 mg PO Q12H 10 Days Qty: 20 0RF Rx Instructions: VRE ondansetron 4 mg tablet,disintegrating 4 mg PO BID PRN (Reason: nausea and vomiting) Qty: 20 0RF cyclobenzaprine 10 mg tablet 10 mg PO TID 90 Days Qty: 270 0RF warfarin 3 mg tablet 3 mg PO DAILY Qty: 30 2RF Protocol: Dose Management Condition: Tuesday Dose/Route: 4 mg Instruction: 1 x 4 mg tablet Condition: Tuesday Dose/Route: 3 mg Instruction: 1 x 3 mg tablet Condition: Tuesday Dose/Route: 4 mg Instruction: 1 x 4 mg tablet Condition: Tuesday Dose/Route: 4 mg Instruction: 1 x 4 mg tablet Condition: Dose/Route: 3 mg Instruction: 1 x 3 mg tablet Condition: Tuesday Dose/Route: 4 mg Instruction: 1 x 4 mg tablet Condition: Tuesday Dose/Route: 4 mg Instruction: 1 x 4 mg tablet Protocol Text: Adjustment Start Date: Tuesday10/02/24 INR Value: 21.70 SECONDS INR Date: 10/02/24 Recheck Date: 10/09/24 metoprolol tartrate 25 mg tablet See Rx Instructions .ROUTE .COMPLEX Qty: 60 0RF Dose Instruction: Take 1 tablet by mouth twice daily Rx Instructions: Take 1 tablet by mouth twice daily Discharge Orders: Discharge ED (Routine); Ordered 10/05/24 Ordered By: Ginger Cosby Referrals: Nica Hernández MD [Primary Care Provider] - Discharge Diet: Advance as tolerated Discharge Activity: Resume usual activity Patient Instructions: Elevated INR (ED) Coding Level of Care Code ED [employer] Guide for Taty Bajwa
[2024-10-05 18:17] LABS: INR 1.74 (0.8-1.2)
[2024-10-05 18:34] VITALS: BP 122/75; PULSE 74; O2SAT 100
== END 2024-10-05 18:36 | disposition home or self-care (01) ==
PROVIDERS: Emergency Provider Emergency Medicine; PCP Family Medicine
DX: R79.83 Abnormal findings of blood amino-acid level (principal); Z79.01 Long term (current) use of anticoagulants; Z87.891 Personal history of nicotine dependence; E11.9 Type 2 diabetes mellitus without complications
CPT/HCPCS: 36415; 85610; 99283

== ENCOUNTER → 2024-10-16 11:04 | Outpatient (BNVA) | payer OTHER, SELFPAY | PROVIDERS: PCP Family Medicine; Visit Provider Family Medicine | DX: Z51.81 Encounter for therapeutic drug level monitoring (principal); Z79.01 Long term (current) use of anticoagulants | CPT/HCPCS: 85610 ==

== ENCOUNTER → 2024-10-22 11:26 | Outpatient (BNVA) | payer OTHER, SELFPAY | PROVIDERS: PCP Family Medicine; Visit Provider Family Medicine | DX: Z79.01 Long term (current) use of anticoagulants (principal); Z51.81 Encounter for therapeutic drug level monitoring | CPT/HCPCS: 85610 ==

== ENCOUNTER → 2024-10-26 10:49 | Outpatient (BNVA) | payer OTHER, SELFPAY | PROVIDERS: PCP Family Medicine; Visit Provider Family Medicine | DX: Z51.81 Encounter for therapeutic drug level monitoring (principal); Z79.01 Long term (current) use of anticoagulants | CPT/HCPCS: 85610 ==

== ENCOUNTER 2024-11-08 12:28 | Outpatient (CLI) | payer OTHER, SELFPAY ==
[2024-11-08 13:16] LABS: Basophils % 0.6 %; Eosinophils # 0.3 10^3/uL (0.0-0.8); Eosinophils % 4.5 %; Hematocrit 35.3 % (36-47); Lymphocytes # 1.3 10^3/uL (0.8-4.8); Lymphocytes % 18.6 %; Mean Corpuscular HGB Conc 30.6 g/dL (30-55); Mean Corpuscular Hemoglobin 28.2 pg (27-33); Mean Corpuscular Volume 92.2 fl (85-98); Mean Platelet Volume 9.4 fL (7.4-10.4); Monocytes # 0.5 10^3/uL (0.2-0.9); Monocytes % 7.4 %; Neutrophils # 4.83 10^3/uL (1.8-7.7); Neutrophils % 68.3 %; Nucleated Red Blood Cells % 0 %; Platelet Count 191 10^3/cmm (157-399); Red Blood Count 3.83 10^6/uL (3.85-5.65); Red Cell Distribution Width 15.9 % (12.1-15.1); White Blood Count 7.06 10^3/uL (3.29-11.43)
[2024-11-08 13:39] LABS: Alanine Aminotransferase 27 U/L (0-33); Albumin Level 3.8 g/dL (3.5-5.2); Alkaline Phosphatase 278 U/L (35-105); Anion Gap 14.6 (5-19); Aspartate Amino Transferase 26 U/L (0-32); Blood Urea Nitrogen 24 mg/dL (6-20); Calcium 9.4 mg/dL (8.5-10.5); Carbon Dioxide 27 mmol/L (22-29); Chloride 105 mmol/L (98-107); Globulin 4.2 g/dL (1.3-4.6); Glomerular Filtration Rate 102.7 mL/min (90-130); Glucose 144 mg/dL (65-115); Osmolality Calculated 301 mOsm/kg (285-295); Potassium 4.6 mmol/L (3.5-5.1); Sodium 142 mmol/L (136-145); Total Bilirubin 1.1 mg/dL (0.15-1.2)
== END 2024-11-08 12:29 | disposition home or self-care (01) ==
PROVIDERS: PCP Family Medicine
DX: Z86.19 Personal history of other infectious and parasitic diseases (principal)
CPT/HCPCS: 36415; 80053; 85025; 85610

== ENCOUNTER → 2024-11-19 10:29 | Outpatient (BNVA) | payer OTHER, SELFPAY | PROVIDERS: PCP Family Medicine; Referring Provider Family Medicine; Visit Provider Family Medicine | DX: Z51.81 Encounter for therapeutic drug level monitoring (principal); Z79.01 Long term (current) use of anticoagulants | CPT/HCPCS: 85610 ==

== ENCOUNTER → 2024-11-27 11:49 | Outpatient (BNVA) | payer OTHER, SELFPAY | PROVIDERS: PCP Family Medicine; Visit Provider Family Medicine | DX: E11.9 Type 2 diabetes mellitus without complications (principal); E11.8 Type 2 diabetes mellitus with unspecified complications; G89.18 Other acute postprocedural pain; T85.590 Other mechanical complication of bile duct prosthesis; L98.491 Non-pressure chronic ulcer of skin of other sites limited to breakdown of skin; R00.0 Tachycardia, unspecified; I72.8 Aneurysm of other specified arteries; Z51.81 Encounter for therapeutic drug level monitoring; Z79.01 Long term (current) use of anticoagulants | CPT/HCPCS: 85610 ==

== ENCOUNTER → 2024-12-04 09:42 | Outpatient (BNVA) | payer OTHER, SELFPAY | PROVIDERS: PCP Family Medicine; Referring Provider Family Medicine; Visit Provider Family Medicine | DX: Z51.81 Encounter for therapeutic drug level monitoring (principal); Z79.01 Long term (current) use of anticoagulants | CPT/HCPCS: 85610 ==

== ENCOUNTER → 2024-12-10 10:16 | Outpatient (BNVA) | payer OTHER, SELFPAY | PROVIDERS: PCP Family Medicine; Visit Provider Family Medicine | DX: Z51.81 Encounter for therapeutic drug level monitoring (principal); Z79.01 Long term (current) use of anticoagulants | CPT/HCPCS: 85610 ==

== ENCOUNTER → 2025-01-01 09:31 | Outpatient (BNVA) | payer OTHER, SELFPAY | PROVIDERS: PCP Family Medicine; Visit Provider Family Medicine | DX: Z86.718 Personal history of other venous thrombosis and embolism (principal) | CPT/HCPCS: 85610 ==

== ENCOUNTER → 2025-01-11 09:23 | Outpatient (BNVA) | payer OTHER, SELFPAY | PROVIDERS: PCP Family Medicine; Referring Provider Family Medicine; Visit Provider Family Medicine | DX: Z51.81 Encounter for therapeutic drug level monitoring (principal); Z79.01 Long term (current) use of anticoagulants | CPT/HCPCS: 85610 ==

== ENCOUNTER → 2025-01-18 11:37 | Outpatient (BNVA) | payer OTHER, SELFPAY | PROVIDERS: PCP Family Medicine; Referring Provider Family Medicine; Visit Provider Family Medicine | DX: Z86.718 Personal history of other venous thrombosis and embolism (principal) | CPT/HCPCS: 85610 ==

== ENCOUNTER → 2025-01-25 09:30 | Outpatient (BNVA) | payer OTHER, SELFPAY | PROVIDERS: PCP Family Medicine; Visit Provider Family Medicine | DX: Z51.81 Encounter for therapeutic drug level monitoring (principal); Z79.01 Long term (current) use of anticoagulants; Z86.73 Personal history of transient ischemic attack (TIA), and cerebral infarction without residual deficits | CPT/HCPCS: 85610 ==

== ENCOUNTER → 2025-01-28 15:52 | Outpatient (BNVA) | payer OTHER, SELFPAY | PROVIDERS: PCP Family Medicine; Referring Provider Family Medicine; Visit Provider Family Medicine | DX: Z51.81 Encounter for therapeutic drug level monitoring (principal); Z79.01 Long term (current) use of anticoagulants | CPT/HCPCS: 85610 ==

== ENCOUNTER 2025-01-31 15:39 | Emergency (ER) | payer OTHER, SELFPAY ==
[2025-01-31 16:14] VITALS: BP 153/71; PULSE 81; RESP 17; TEMP 37; O2SAT 99; BMI 47.5
--- NOTE | 2025-01-31 19:13 | ED_ITS ---
HPI - General Adult 2 General: Chief complaint: General Medical Stated complaint: blue nail beds, abd bleeding Time Seen by Provider: 01/31/25 18:00 History of Present Illness: Patient presents Emergency Department with complaint of fingernail bed turning blue. She states that she started to have some bleeding from her fistula on her abdomen which is a common occurrence for her and she was able to get the bleeding to stop but then she noticed that her fingernails were blue and she was concerned maybe her hemoglobin was too low. She states that the blueness is actually improved significantly since she has been here in the emergency department. She denies having any pain. She states that she does have problems with recurrent bleeding from her fistula so that is not abnormal. Stated were able to get the bleeding to stop with direct pressure. She is anticoagulated. Related Data Home Medications ?Medication ?Instructions ?Recorded ?Confirmed acetaminophen 325 mg tablet 325 mg PO QID PRN Pain, Mi ld 01/25/23 01/01/25 (Tylenol) Previous Rx's ?Medication ?Instructions ?Recorded off washing machine loader and puller knee brace right #1 ea 07/29/23 left AFO brace #1 ea 01/31/24 warfarin 5 mg tablet 5 mg PO DAILY #30 tabs 04/12 naloxone 4 mg/actuation nasal 4 mg intranasal Q2M PRN opioid 05/29/24 spray (Narcan) overdose #2 ea miscellaneous medical supply See Rx Instructions misce llaneous 06/20/24 .COMPLEX #1 ea cyclobenzaprine 10 mg tablet 10 mg PO TID 90 days #270 tabs 10/16/24 gabapentin 600 mg tablet 600 mg PO BID 90 days #180 t abs 10/16/24 ondansetron 4 mg disintegrating 4 mg PO BID PRN nausea and 10/16/24 tablet vomiting #20 tabs pantoprazole 40 mg tablet,delayed 40 mg PO DAILY 90 da ys #90 tabs 10/16/24 release hydrocodone 10 mg-acetaminophen 1 tab PO Q8H PRN pain 7 days #21 11/27/24 325 mg tablet tabs insulin syringes (disposable) 1 mL #500 ea 11/27/24 pen needle, diabetic 33 gauge x #100 ea 11/27/2409/29 (Comfort EZ Pen [place]) warfarin 3 mg tablet 3 mg PO DAILY #30 tabs 12/10 warfarin 4 mg tablet 4 mg PO DAILY #30 tabs 12/10 folic acid 1 mg tablet 1 mg PO DAILY #30 tabs 01/01 insulin glargine 100 unit/mL (3 15 unit (0.15 mL) SUBC UT DAILY #15 01/01/25 mL) subcutaneous pen (Lantus mL Solostar U-100 Insulin) metoprolol tartrate 25 mg tablet See Rx Instructions . Route 01/01/25 .COMPLEX #180 tabs Allergies Allergy/AdvReac Type Severity Reaction Status Date / Time apixaban (From Eliquis) Allergy Severe ADR-Itching Verified 01/01/25 07:39 pork derived (porcine) Allergy Intermediate adventist Verified 01/01/25 07:39 reasons Alpha-Gal Allergy unknown Verified 01/01/25 07:39 ([id number]-Npcyp-1,3-Gala piperacillin (From Zosyn) Allergy ALGY-Anaphy Verified 01/01/25 07:39 laxis tazobactam (From Zosyn) Allergy ALGY-Anaphy Verified 01/01/25 07:39 laxis shellfish derived AdvReac Intermediate ADR-Confusi Verified 01/01/25 07:39 on PFSH ED 2 PFSH: Medical History Diabetes History of DVT (deep vein thrombosis) Presence of IVC filter Enterocutaneous fistula Biliary obstruction Allergy to alpha-gal No pertinent family history Surgical History History of orthopedic surgery Left femur fracture repair S/P aneurysm repair Hepatic aneurysm with stent placed History of abdominal surgery Bile duct repair, repair of bowel injury Hx of cholecystectomy Family History Father Hypertension Denies family history of Diabetes Clotting disorder Bleeding disorder Cancer Stroke Social History Smoking and tobacco/nicotine status: former use of tobacco/nicotine Alcohol intake: never Female Reproductive History: Para: 2 Spontaneous abortions: Yes (1) Physical Exam 2 Const: COMMON NORMALS: no acute distress, average body habitus, patient oriented x3, no limitations, healthy appearing, alert and well nourished HENMT: COMMON NORMALS: normocephalic, atraumatic, hearing grossly normal bilaterally, external ears normal, EAC's normal, TM's normal bilaterally, Normal external nose present, Normal nasal mucous membranes and turbinates present, moist oral mucous membranes, oropharynx normal, dentition normal and gingiva normal HEAD & SCALP: normocephalic and atraumatic NOSE: Normal external nose present and Normal nasal mucous membranes and turbinates present E XTERNAL EAR: Yes external ears normal EXTERNAL AUDITORY CANAL: EAC's normal TYMPANIC MEMBRANE: TM's normal bilaterally Neck/C-Spine: COMMON NORMALS: no JVD Resp: COMMON NORMALS: normal respiratory effort, No retractions, No use of accessory muscles, clear to auscultation bilaterally and percussion normal A USCULTATION: clear to auscultation bilaterally PERCUSSION: percussion normal Cardio: COMMON NORMALS: no JVD, regular rate, regular rhythm, S1 normal heart sound present, S2 normal heart sound present, No gallops present (Cardio), No clicks present (Cardio), No murmurs present (Cardio), No rub (Cardio) and Peripheral pulses 2+ throughout RATE: regular rate RHYTHM: regular rhythm HEART SOUNDS: S1 normal heart sound present and S2 normal heart sound present PERIPHERAL PULSES: Peripheral pulses 2+ throughout GI: OTHER: Open wound with fistula on her abdomen. There is some scabs on the but no active bleeding. Extremity: OTHER: Patient does have a bluish tint to her finger nailbeds. But she has good capillary refill. Good distal radial pulses. Neurovascular intact bilateral upper extremities. Neuro: COMMON NORMALS: patient oriented x3 SENSORIUM/ORIENTATION: Yes alert Course 2 Vital Signs: Vital signs: Vital Signs Temperature 98.6 F 01/31/25 16:14 Pulse Rate 81 01/31/25 16:14 Respiratory Rate 17 01/31/25 16:14 Blood Pressure 153/71 01/31/25 16:14 Pulse Oximetry 99 01/31/25 16:14 Oxygen Delivery Me thod Room Air 01/31/25 16:14 MDM - General Adult Medical Decision Making Patient presents Emergency Department with complaint of fingernail bed turning blue. She states that she started to have some bleeding from her fistula on her abdomen which is a common occurrence for her and she was able to get the bleeding to stop but then she noticed that her fingernails were blue and she was concerned maybe her hemoglobin was too low. She states that the blueness is actually improved significantly since she has been here in the emergency department. She denies having any pain. She states that she does have problems with recurrent bleeding from her fistula so that is not abnormal. Stated were able to get the bleeding to stop with direct pressure. She is anticoagulated. Patient's hemoglobin is 8.5. She is not having any active bleeding at this time from her fistula. Patient does not have any more bluish tint to her nailbeds. Discussed findings with patient. Advised patient to continue take her iron supplements. Patient is to follow-up with primary care next week in preparation for liver stent procedure. Advised patient to have blood counts rechecked. Do not see any indication for blood transfusion or other emergent intervention at this time as patient has not having any active bleeding and is hemodynamically stable. Lab Data 01/31/25 19:25 01/31/25 19:25 Laboratory Results WBC 6.27 10^3/uL (3.29-11.43) 01/31/25 19:25 RBC 3.33 10^6/uL (3.85-5.65) L 01/31/25 19:25 Hgb 8.50 g/dL (11.27-16.99) L 01/31/25 19: Hct 29.2 % (36-47) L 01/31/25 19: MCV 87.7 fl (85-98) 01/31/25 19:25 MCH 25.5 pg (27-33) L 01/31/25 19:25 MCHC 29.1 g/dL (30-55) L 01/31/25 19:25 RDW 16.4 % (12.1-15.1) H 01/31/25 19:25 Plt Count 170 10^3/cmm (157-399) 01/31/25 19:25 MPV 10.3 fL (7.4-10.4) 01/31/25 19:25 Neut % (Auto) 69.8 % 01/31/25 19:25 Lymph % (Auto) 17.9 % 01/31/25 19:25 [place] % (Auto) 7.7 % 01/31/25 19:25 Eos % (Auto) 3.8 % 01/31/25 19:25 Baso % (Auto) 0.5 % 01/31/25 19:25 Neut # (Auto) 4.38 10^3/uL (1.8-7.7) 01/31/25: Lymph # (Auto) 1.1 10^3/uL (0.8-4.8) 01/31/25 19:25 [place] # (Auto) 0.5 10^3/uL (0.2-0.9) 01/31/25: Eos # (Auto) 0.2 10^3/uL (0.0-0.8) 01/31/25: Baso # (Auto) 0.0 10^3/uL (0.0-0.1) 01/31/25: Nucleated RBC % (auto) 0 % 01/31/25: Nucleated RBCs # 0.0 /100WBC 01/31/25:25 PT 24.40 SECONDS (12.1-14.9) H 01/31/25:25 INR 2.05 (0.8-1.2) H 01/31/25:25 APTT 41.6 SECONDS (23.9-36.7) H 01/31/25 19:25 Sodium 140 mmol/L (136-145) 01/31/25:25 Potassium 4.5 mmol/L (3.5-5.1) 01/31/25: Chloride 104 mmol/L (98-107) 01/31/25:25 Carbon Dioxide 19 mmol/L (22-29) L 01/31/25:25 Anion Gap 21.5 (5-19) H 01/31/25 19:25 BUN 21 mg/dL (6-20) H 01/31/25 19:25 Creatinine 0.8 mg/dL (0.5-0.9) 01/31/25:25 GFR Calculation 73.7 mL/min (90-130) L 01/31/25:25 Glucose 109 mg/dL (65-115) 01/31/25: Calculated Osmolality 294 mOsm/kg (285-295) 01/31/25:25 Calcium 8.4 mg/dL (8.5-10.5) L 01/31/25:25 Total Bilirubin 1.2 mg/dL (0.15-1.2) 01/31/25 19:25 AST 26 U/L (0-32) 01/31/25 19:25 ALT 21 U/L (0-33) 01/31/25 19:25 Alkaline Phosphatase 208 U/L (35-105) H 01/31/25 19:25 Total Protein 7.3 g/dL (6.6-8.7) 01/31/25 19:25 Albumin 3.7 g/dL (3.5-5.2) 01/31/25 19:25 Globulin 3.6 g/dL (1.3-4.6) 01/31/25 19:25 No radiology studies performed this visit Discharge Plan Discharge Patient Disposition: Home Clinical Impression: Anemia Qualifiers: Anemia type: unspecified type Qualified Code(s): D64.9 - Anemia, unspecified Condition: Stable Prescriptions: No Action acetaminophen [Tylenol] 325 mg tablet 325 mg PO QID PRN (Reason: Pain, Mild) (DME) left AFO brace See Rx Instructions .Route .MEDSUPPLY Qty: 1 0RF Rx Instructions: As directed naloxone [Narcan] 4 mg/actuation spray,non-aerosol 4 mg intranasal Q2M PRN (Reason: opioid overdose) Qty: 2 0RF Rx Instructions: spray 1 dose into ONE nostril cyclobenzaprine 10 mg tablet 10 mg PO TID 90 Days Qty: 270 2RF gabapentin 600 mg tablet 600 mg PO BID 90 Days Qty: 180 2RF pantoprazole 40 mg tablet,delayed release (DR/EC) 40 mg PO DAILY 90 Days Qty: 90 2RF ondansetron 4 mg tablet,disintegrating 4 mg PO BID PRN (Reason: nausea and vomiting) Qty: 20 0RF folic acid 1 mg tablet 1 mg PO DAILY Qty: 30 5RF insulin glargine [Lantus Solostar U-100 Insulin] 100 unit/mL (3 mL) insulin pen 15 unit SUBCUT DAILY Qty: 15 5RF metoprolol tartrate 25 mg tablet See Rx Instructions .ROUTE .COMPLEX Qty: 180 2RF Dose Instruction: Take 1 tablet by mouth twice daily Rx Instructions: Take 1 tablet by mouth twice daily (DME) off washing machine loader and puller knee brace right See Rx Instructions .Route .MEDSUPPLY Qty: 1 0RF Rx Instructions: As directed miscellaneous medical supply Misc See Rx Instructions miscellaneous .COMPLEX Qty: 1 0RF Rx Instructions: electric hospital bed as directed; (DME) insulin syringes (disposable) 1 mL syringe See Rx Instructions .ROUTE .MEDSUPPLY Qty: 500 5RF Rx Instructions: As directed hydrocodone-acetaminophen 10-325 mg tablet 1 tab PO Q8H PRN (Reason: pain) 7 Days Qty: 21 0RF (DME) pen needle, diabetic [Comfort EZ Pen [place]] 33 gauge x 1/4 needle See Rx Instructions .ROUTE .MEDSUPPLY Qty: 100 2RF Rx Instructions: As directed warfarin 3 mg tablet 3 mg PO DAILY Qty: 30 2RF Protocol: Dose Management Condition: Tuesday Dose/Route: 3 mg Instruction: 1 x 3 mg tablet Condition: Tuesday Dose/Route: 3 mg Instruction: 1 x 3 mg tablet Condition: Tuesday Dose/Route: 3 mg Instruction: 1 x 3 mg tablet Condition: Tuesday Dose/Route: 3 mg Instruction: 1 x 3 mg tablet Condition: Dose/Route: 3 mg Instruction: 1 x 3 mg tablet Condition: Tuesday Dose/Route: 3 mg Instruction: 1 x 3 mg tablet Condition: Tuesday Dose/Route: 3 mg Instruction: 1 x 3 mg tablet Protocol Text: Adjustment Start Date: Tuesday01/25/25 INR Value: 45.20 SECONDS INR Date: 01/25/25 Recheck Date: 01/29/25 warfarin 4 mg tablet 4 mg PO DAILY Qty: 30 2RF Protocol: Dose Management Condition: Tuesday Dose/Route: 3 mg Instruction: 1 x 3 mg tablet Condition: Tuesday Dose/Route: 3 mg Instruction: 1 x 3 mg tablet Condition: Tuesday Dose/Route: 3 mg Instruction: 1 x 3 mg tablet Condition: Tuesday Dose/Route: 3 mg Instruction: 1 x 3 mg tablet Condition: Dose/Route: 3 mg Instruction: 1 x 3 mg tablet Condition: Tuesday Dose/Route: 3 mg Instruction: 1 x 3 mg tablet Condition: Tuesday Dose/Route: 3 mg Instruction: 1 x 3 mg tablet Protocol Text: Adjustment Start Date: Tuesday01/25/25 INR Value: 45.20 SECONDS INR Date: 01/25/25 Recheck Date: 01/29/25 warfarin 5 mg tablet 5 mg PO DAILY Qty: 30 0RF Protocol: Dose Management Condition: Tuesday Dose/Route: 3 mg Instruction: 1 x 3 mg tablet Condition: Tuesday Dose/Route: 3 mg Instruction: 1 x 3 mg tablet Condition: Tuesday Dose/Route: 3 mg Instruction: 1 x 3 mg tablet Condition: Tuesday Dose/Route: 3 mg Instruction: 1 x 3 mg tablet Condition: Dose/Route: 3 mg Instruction: 1 x 3 mg tablet Condition: Tuesday Dose/Route: 3 mg Instruction: 1 x 3 mg tablet Condition: Tuesday Dose/Route: 3 mg Instruction: 1 x 3 mg tablet Protocol Text: Adjustment Start Date: Tuesday01/25/25 INR Value: 45.20 SECONDS INR Date: 01/25/25 Recheck Date: 01/29/25 Discharge Orders: Discharge ED (Routine); Ordered 01/31/25 Ordered By: Vishal Suarez Referrals: Nica Hernández MD [Primary Care Provider, Family Practice] Patient Instructions: Opioid Safety, Pain Management Print Language: Mongolian Coding Level of Care Code ED Mortarman for Taty Bajwa
[2025-01-31 19:33] LABS: Basophils % 0.5 %; Eosinophils # 0.2 10^3/uL (0.0-0.8); Eosinophils % 3.8 %; Hematocrit 29.2 % (36-47); Lymphocytes # 1.1 10^3/uL (0.8-4.8); Lymphocytes % 17.9 %; Mean Corpuscular HGB Conc 29.1 g/dL (30-55); Mean Corpuscular Hemoglobin 25.5 pg (27-33); Mean Corpuscular Volume 87.7 fl (85-98); Mean Platelet Volume 10.3 fL (7.4-10.4); Monocytes # 0.5 10^3/uL (0.2-0.9); Monocytes % 7.7 %; Neutrophils # 4.38 10^3/uL (1.8-7.7); Neutrophils % 69.8 %; Nucleated Red Blood Cells % 0 %; Platelet Count 170 10^3/cmm (157-399); Red Blood Count 3.33 10^6/uL (3.85-5.65); Red Cell Distribution Width 16.4 % (12.1-15.1); White Blood Count 6.27 10^3/uL (3.29-11.43)
[2025-01-31 19:48] LABS: INR 2.05 (0.8-1.2); Partial Thromboplastin Time 41.6 SECONDS (23.9-36.7)
[2025-01-31 20:35] LABS: Alanine Aminotransferase 21 U/L (0-33); Albumin Level 3.7 g/dL (3.5-5.2); Alkaline Phosphatase 208 U/L (35-105); Anion Gap 21.5 (5-19); Aspartate Amino Transferase 26 U/L (0-32); Blood Urea Nitrogen 21 mg/dL (6-20); Calcium 8.4 mg/dL (8.5-10.5); Carbon Dioxide 19 mmol/L (22-29); Chloride 104 mmol/L (98-107); Globulin 3.6 g/dL (1.3-4.6); Glomerular Filtration Rate 73.7 mL/min (90-130); Glucose 109 mg/dL (65-115); Osmolality Calculated 294 mOsm/kg (285-295); Potassium 4.5 mmol/L (3.5-5.1); Sodium 140 mmol/L (136-145); Total Bilirubin 1.2 mg/dL (0.15-1.2); Total Protein 7.3 g/dL (6.6-8.7)
[2025-01-31 21:00] VITALS: BP 128/59; PULSE 77; O2SAT 99
== END 2025-01-31 21:25 | disposition home or self-care (01) ==
PROVIDERS: Emergency Provider Emergency Medicine; PCP Family Medicine
DX: D64.9 Anemia, unspecified (principal); E11.9 Type 2 diabetes mellitus without complications; Z87.891 Personal history of nicotine dependence; Z79.4 Long term (current) use of insulin; Z79.01 Long term (current) use of anticoagulants
CPT/HCPCS: 36415; 80053; 85025; 85610; 85730; 99283

== ENCOUNTER 2025-02-07 10:36 | Emergency (ER) | payer OTHER, SELFPAY ==
[2025-02-07 10:59] VITALS: BP 101/47; PULSE 60; RESP 18; TEMP 36.6; O2SAT 99
--- NOTE | 2025-02-07 11:10 | ECG_ITS ---
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
[2025-02-07 13:00] LABS: Basophils % 0.7 %; Eosinophils # 0.3 10^3/uL (0.0-0.8); Eosinophils % 4.2 %; Hematocrit 30.6 % (36-47); Lymphocytes # 1.5 10^3/uL (0.8-4.8); Mean Corpuscular HGB Conc 28.8 g/dL (30-55); Mean Corpuscular Hemoglobin 25.3 pg (27-33); Mean Corpuscular Volume 87.9 fl (85-98); Mean Platelet Volume 9.4 fL (7.4-10.4); Monocytes # 0.3 10^3/uL (0.2-0.9); Monocytes % 5.3 %; Neutrophils # 3.67 10^3/uL (1.8-7.7); Neutrophils % 62.3 %; Nucleated Red Blood Cells % 0 %; Platelet Count 224 10^3/cmm (157-399); Red Blood Count 3.48 10^6/uL (3.85-5.65); Red Cell Distribution Width 16.7 % (12.1-15.1); White Blood Count 5.89 10^3/uL (3.29-11.43)
[2025-02-07] MEDS: sodium chloride 0.9% 500 ML IV (13:04)
[2025-02-07 13:16] LABS: INR 1.07 (0.8-1.2)
[2025-02-07 13:20] LABS: Alanine Aminotransferase 15 U/L (0-33); Albumin Level 3.7 g/dL (3.5-5.2); Alkaline Phosphatase 214 U/L (35-105); Anion Gap 13.9 (5-19); Aspartate Amino Transferase 21 U/L (0-32); Blood Urea Nitrogen 23 mg/dL (6-20); Carbon Dioxide 27 mmol/L (22-29); Chloride 104 mmol/L (98-107); Globulin 4.6 g/dL (1.3-4.6); Glomerular Filtration Rate 73.7 mL/min (90-130); Glucose 102 mg/dL (65-115); Osmolality Calculated 294 mOsm/kg (285-295); Potassium 4.9 mmol/L (3.5-5.1); Sodium 140 mmol/L (136-145); Total Bilirubin 0.7 mg/dL (0.15-1.2); Total Protein 8.3 g/dL (6.6-8.7)
[2025-02-07 14:00] VITALS: BP 127/59; PULSE 62; RESP 16; O2SAT 100
[2025-02-07 14:51] VITALS: BP 124/62; BP 125/65; BP 96/58; PULSE 60; PULSE 61; PULSE 75
[2025-02-07 15:41] VITALS: BP 116/68; PULSE 63; RESP 14; O2SAT 98
--- NOTE | 2025-02-07 15:57 | W.ED.DIZZY ---
HPI - Dizziness General: Chief Complaint: Dizziness Stated Complaint: dizzy, unstable on feet weak Time Seen by Provider: 02/07/25 12:55 Source: patient and family Mode of arrival: ambulatory Limitations: no limitations History of Present Illness: HPI Narrative: Patient reports has been dizzy today. That she has a fistula in her abdomen and that she had surgery on it Tuesday as well as she had a biliary stent upgraded from a 12 to a 14. She is large amount on the abdomen and the [address] I have seen the fistula and is still open however no signs of infection around it. Covered with a Silvadene dressing. Patient is worried that her hemoglobin may have dropped and she had recent procedures as has happened before. She has been on Cipro for pretreatment before the stent as previously she got infections after the stent changed out. Related Data Home Medications ?Medication ?Instructions ?Recorded ?Confirmed acetaminophen 325 mg tablet 325 mg PO QID PRN Pain, Mild 01/25/23 02/07/25 (Tylenol) clindamycin phosphate 1 % lotion See Rx Instructions .Route .COMPLEX 02/07/25 02/07/25 epinephrine 0.3 mg/0.3 mL See Rx Instructions .Route .COMPLEX 02/07/25 02/07/25 injection, auto-injector ferrous sulfate 325 mg (65 mg 325 mg PO DAILY 02/07/25 02/07/25 iron) tablet (FeroSul) gabapentin 600 mg tablet 300 mg PO BID 02/07/25 02/07/25 metoprolol tartrate 25 mg tablet 25 mg PO BID 02/07/25 02/07/25 mometasone 0.1 % topical ointment See Rx Instructions .Route .COMPLEX 02/07/25 02/07/25 sodium chloride 0.9 % (flush) See Rx Instructions .Route .COMPLEX 02/07/25 02/07/25 (Normal Saline Flush 0.9 % injection syringe) trospium 20 mg tablet 20 mg PO BID 02/07/25 02/07/25 Previous Rx's ?Medication ?Instructions ?Recorded off kiln loader knee brace right #1 ea 07/29/23 left AFO brace #1 ea 01/31/24 warfarin 5 mg tablet 5 mg PO DAILY #30 tabs 04/12/24 naloxone 4 mg/actuation nasal 4 mg intranasal Q2M PRN opioid 05/29/24 spray (Narcan) overdose #2 ea cyclobenzaprine 10 mg tablet 10 mg PO TID 90 days #270 tabs 10/16/24 ondansetron 4 mg disintegrating 4 mg PO BID PRN nausea and 10/16/24 tablet vomiting #20 tabs pantoprazole 40 mg tablet,delayed 40 mg PO DAILY 90 days #90 tabs 10/16/24 release hydrocodone 10 mg-acetaminophen 1 tab PO Q8H PRN pain 7 days #21 11/27/24 325 mg tablet tabs insulin syringes (disposable) 1 mL #500 ea 11/27/24 pen needle, diabetic 33 gauge x #100 ea 11/27/2409/29 (Comfort EZ Pen [place]) warfarin 3 mg tablet 3 mg PO DAILY #30 tabs 12/10/24 warfarin 4 mg tablet 4 mg PO DAILY #30 tabs 12/10/24 folic acid 1 mg tablet 1 mg PO DAILY #30 tabs 01/01/25 insulin glargine 100 unit/mL (3 15 unit (0.15 mL) SUBCUT DAILY #15 01/01/25 mL) subcutaneous pen (Lantus mL Solostar U-100 Insulin) Allergies Allergy/AdvReac Type Severity Reaction Status Date / Time apixaban (From Eliquis) Allergy Severe ADR-Itching Verified 01/01/25 07:39 pork derived (porcine) Allergy Intermediate denominational Verified 01/01/25 07:39 reasons Alpha-Gal Allergy unknown Verified 01/01/25 07:39 ([id number],3-Gala piperacillin (From Zosyn) Allergy ALGY-Anaphy Verified 01/01/25 07:39 laxis tazobactam (From Zosyn) Allergy ALGY-Anaphy Verified 01/01/25 07:39 laxis shellfish derived AdvReac Intermediate ADR-Confusi Verified 01/01/25 07:39 on Review of Systems General: Reports: 10 or more systems reviewed and unremarkable except in HPI and below PFSH ED PFSH: Medical History Diabetes History of DVT (deep vein thrombosis) Presence of IVC filter Enterocutaneous fistula Biliary obstruction Allergy to alpha-gal No pertinent family history Surgical History History of orthopedic surgery Left femur fracture repair S/P aneurysm repair Hepatic aneurysm with stent placed History of abdominal surgery Bile duct repair, repair of bowel injury Hx of cholecystectomy Family History Father Hypertension Denies family history of Diabetes Clotting disorder Bleeding disorder Cancer Stroke Social History Smoking and tobacco/nicotine status: former use of tobacco/nicotine Alcohol intake: never Female Reproductive History: Para: 2 Spontaneous abortions: Yes (1) Physical Exam Const: COMMON NORMALS: no acute distress, average body habitus, patient oriented x3, no limitations, healthy appearing, alert and well nourished HENMT: COMMON NORMALS: normocephalic, atraumatic, hearing grossly normal bilaterally, external ears normal, Normal external nose present, Normal nasal mucous membranes and turbinates present, moist oral mucous membranes and oropharynx normal HEAD & SCALP: normocephalic and atraumatic NOSE: Normal external nose present and Normal nasal mucous membranes and turbinates present EXTERNAL EAR: Yes external ears normal Neck/C-Spine: COMMON NORMALS: no JVD Resp: COMMON NORMALS: normal respiratory effort, No retractions, No use of accessory muscles, clear to auscultation bilaterally and percussion normal AUSCULTATION: clear to auscultation bilaterally PERCUSSION: percussion normal Cardio: COMMON NORMALS: no JVD, regular rate, regular rhythm, S1 normal heart sound present, S2 normal heart sound present, No gallops present (Cardio), No clicks present (Cardio), No murmurs present (Cardio), No rub (Cardio) and Peripheral pulses 2+ throughout RATE: regular rate RHYTHM: regular rhythm HEART SOUNDS: S1 normal heart sound present and S2 normal heart sound present PERIPHERAL PULSES: Peripheral pulses 2+ throughout GI: OTHER: Open wound with fistula on her abdomen. There is some scabs on the but no active bleeding. Extremity: OTHER: Patient does have a bluish tint to her finger nailbeds. But she has good capillary refill. Good distal radial pulses. Neurovascular intact bilateral upper extremities. Neuro: COMMON NORMALS: patient oriented x3 SENSORIUM/ORIENTATION: Yes alert Course Vital Signs: Vital signs: Vital Signs Temperature 97.8 F 02/07/25 10:59 Pulse Rate 63 02/07/25 15:41 Respiratory Rate 14 02/07/25 15:41 Blood Pressure 116/68 02/07/25 15:41 Pulse Oximetry 98 02/07/25 15:41 Oxygen Delivery Me thod Room Air 02/07/25 15:41 MDM - Dizziness Medical Decision Making Likely just mild dehydration in the fragile postoperative state with recent drain change. No signs of infection on exam. No signs of infection on her lab work either, normal white count, normal platelet count. Hemoglobin actually improved from previous now 8.8. Patient reports much improvement after fluid bolus. EKG personally reviewed and shows sinus bradycardia rate of 59, normal NC and QTc. No axis change. No ST elevation Medical Records I reviewed the patient's medical records. Lab Data I reviewed the patient's lab results. 02/07/25 12:49 02/07/25 12:49 Laboratory Results WBC 5.89 10^3/uL (3.29-11.43) 02/07/25 12:49 RBC 3.48 10^6/uL (3.85-5.65) L 02/07/25 12:49 Hgb 8.80 g/dL (11.27-16.99) L 02/07/25 12:49 Hct 30.6 % (36-47) L 02/07/25 12:49 MCV 87.9 fl (85-98) 02/07/25 12:49 MCH 25.3 pg (27-33) L 02/07/25 12:49 MCHC 28.8 g/dL (30-55) L 02/07/25 12:49 RDW 16.7 % (12.1-15.1) H 02/07/25 12:49 Plt Count 224 10^3/cmm (157-399) 02/07/25 12:49 MPV 9.4 fL (7.4-10.4) 02/07/25 12:49 Neut % (Auto) 62.3 % 02/07/25 12:49 Lymph % (Auto) 26.0 % 02/07/25 12:49 [place] % (Auto) 5.3 % 02/07/25 12:49 Eos % (Auto) 4.2 % 02/07/25 12:49 Baso % (Auto) 0.7 % 02/07/25 12:49 Neut # (Auto) 3.67 10^3/uL (1.8-7.7) 02/07/25 12:49 Lymph # (Auto) 1.5 10^3/uL (0.8-4.8) 02/07/25 12:49 [place] # (Auto) 0.3 10^3/uL (0.2-0.9) 02/07/25 12:49 Eos # (Auto) 0.3 10^3/uL (0.0-0.8) 02/07/25 12:49 Baso # (Auto) 0.0 10^3/uL (0.0-0.1) 02/07/25 12:49 Nucleated RBC % (auto) 0 % 02/07/25 12:49 Nucleated RBCs # 0.0 /100WBC 02/07/25 12:49 PT 14.70 SECONDS (12.1-14.9) 02/07/25 12:49 INR 1.07 (0.8-1.2) 02/07/25 12:49 Sodium 140 mmol/L (136-145) 02/07/25 12:49 Potassium 4.9 mmol/L (3.5-5.1) 02/07/25 12:49 Chloride 104 mmol/L (98-107) 02/07/25 12:49 Carbon Dioxide 27 mmol/L (22-29) 02/07/25 12:49 Anion Gap 13.9 (5-19) 02/07/25 12:49 BUN 23 mg/dL (6-20) H 02/07/25 12:49 Creatinine 0.8 mg/dL (0.5-0.9) 02/07/25 12:49 GFR Calculation 73.7 mL/min (90-130) L 02/07/25 12:49 Glucose 102 mg/dL (65-115) 02/07/25 12:49 Calculated Osmolality 294 mOsm/kg (285-295) 02/07/25 12:49 Calcium 9.0 mg/dL (8.5-10.5) 02/07/25 12:49 Total Bilirubin 0.7 mg/dL (0.15-1.2) 02/07/25 12:49 AST 21 U/L (0-32) 02/07/25 12:49 ALT 15 U/L (0-33) 02/07/25 12:49 Alkaline Phosphatase 214 U/L (35-105) H 02/07/25 12:49 Total Protein 8.3 g/dL (6.6-8.7) 02/07/25 12:49 Albumin 3.7 g/dL (3.5-5.2) 02/07/25 12:49 Globulin 4.6 g/dL (1.3-4.6) 02/07/25 12:49 No radiology studies performed this visit Discharge Plan Discharge Patient Disposition: Home Clinical Impression: Light-headedness, Dehydration, mild Condition: Stable Prescriptions: No Action acetaminophen [Tylenol] 325 mg tablet 325 mg PO QID PRN (Reason: Pain, Mild) (DME) left AFO brace See Rx Instructions .Route .MEDSUPPLY Qty: 1 0RF Rx Instructions: As directed naloxone [Narcan] 4 mg/actuation spray,non-aerosol 4 mg intranasal Q2M PRN (Reason: opioid overdose) Qty: 2 0RF Rx Instructions: spray 1 dose into ONE nostril cyclobenzaprine 10 mg tablet 10 mg PO TID 90 Days Qty: 270 2RF pantoprazole 40 mg tablet,delayed release (DR/EC) 40 mg PO DAILY 90 Days Qty: 90 2RF ondansetron 4 mg tablet,disintegrating 4 mg PO BID PRN (Reason: nausea and vomiting) Qty: 20 0RF folic acid 1 mg tablet 1 mg PO DAILY Qty: 30 5RF insulin glargine [Lantus Solostar U-100 Insulin] 100 unit/mL (3 mL) insulin pen 15 unit SUBCUT DAILY Qty: 15 5RF (DME) off kiln loader knee brace right See Rx Instructions .Route .MEDSUPPLY Qty: 1 0RF Rx Instructions: As directed (DME) insulin syringes (disposable) 1 mL syringe See Rx Instructions .ROUTE .MEDSUPPLY Qty: 500 5RF Rx Instructions: As directed hydrocodone-acetaminophen 10-325 mg tablet 1 tab PO Q8H PRN (Reason: pain) 7 Days Qty: 21 0RF (DME) pen needle, diabetic [Comfort EZ Pen [place]] 33 gauge x 1/4 needle See Rx Instructions .ROUTE .MEDSUPPLY Qty: 100 2RF Rx Instructions: As directed warfarin 3 mg tablet 3 mg PO DAILY Qty: 30 2RF Protocol: Dose Management Condition: Tuesday Dose/Route: 3 mg Instruction: 1 x 3 mg tablet Condition: Tuesday Dose/Route: 3 mg Instruction: 1 x 3 mg tablet Condition: Tuesday Dose/Route: 3 mg Instruction: 1 x 3 mg tablet Condition: Tuesday Dose/Route: 3 mg Instruction: 1 x 3 mg tablet Condition: Dose/Route: 3 mg Instruction: 1 x 3 mg tablet Condition: Tuesday Dose/Route: 3 mg Instruction: 1 x 3 mg tablet Condition: Tuesday Dose/Route: 3 mg Instruction: 1 x 3 mg tablet Protocol Text: Adjustment Start Date: Tuesday01/25/25 INR Value: 45.20 SECONDS INR Date: 01/25/25 Recheck Date: 01/29/25 warfarin 4 mg tablet 4 mg PO DAILY Qty: 30 2RF Protocol: Dose Management Condition: Tuesday Dose/Route: 3 mg Instruction: 1 x 3 mg tablet Condition: Tuesday Dose/Route: 3 mg Instruction: 1 x 3 mg tablet Condition: Tuesday Dose/Route: 3 mg Instruction: 1 x 3 mg tablet Condition: Tuesday Dose/Route: 3 mg Instruction: 1 x 3 mg tablet Condition: Dose/Route: 3 mg Instruction: 1 x 3 mg tablet Condition: Tuesday Dose/Route: 3 mg Instruction: 1 x 3 mg tablet Condition: Tuesday Dose/Route: 3 mg Instruction: 1 x 3 mg tablet Protocol Text: Adjustment Start Date: Tuesday01/25/25 INR Value: 45.20 SECONDS INR Date: 01/25/25 Recheck Date: 01/29/25 warfarin 5 mg tablet 5 mg PO DAILY Qty: 30 0RF Protocol: Dose Management Condition: Tuesday Dose/Route: 3 mg Instruction: 1 x 3 mg tablet Condition: Tuesday Dose/Route: 3 mg Instruction: 1 x 3 mg tablet Condition: Tuesday Dose/Route: 3 mg Instruction: 1 x 3 mg tablet Condition: Tuesday Dose/Route: 3 mg Instruction: 1 x 3 mg tablet Condition: Dose/Route: 3 mg Instruction: 1 x 3 mg tablet Condition: Tuesday Dose/Route: 3 mg Instruction: 1 x 3 mg tablet Condition: Tuesday Dose/Route: 3 mg Instruction: 1 x 3 mg tablet Protocol Text: Adjustment Start Date: Tuesday01/25/25 INR Value: 45.20 SECONDS INR Date: 01/25/25 Recheck Date: 01/29/25 ferrous sulfate [FeroSul] 325 mg (65 mg iron) tablet 325 mg PO DAILY mometasone 0.1 % ointment See Rx Instructions .ROUTE .COMPLEX Rx Instructions: APPLY OINTMENT TOPICALLY TO AFFECTED AREA ONCE DAILY NEEDED. epinephrine 0.3 mg/0.3 mL auto-injector See Rx Instructions .ROUTE .COMPLEX Rx Instructions: Use per package instructions in case of emergency. clindamycin phosphate 1 % lotion See Rx Instructions .ROUTE .COMPLEX Rx Instructions: APPLY TO THE AFFECTED AREA(S) ON face EVERY MORNING FOR acne. sodium chloride 0.9 % (flush) [Normal Saline Flush] Syringe See Rx Instructions .ROUTE .COMPLEX Rx Instructions: 20ML BY INTRACATHETER ROUTE EVERY TWELVE HOURS FOR 60 DAYS 10 ML (PER CATHETER) EVERY TWELVE HOURS. trospium 20 mg tablet 20 mg PO BID gabapentin 600 mg tablet 300 mg PO BID metoprolol tartrate 25 mg tablet 25 mg PO BID Discharge Orders: Discharge ED (Routine); Ordered 02/07/25 Ordered By: Silvio Mistry Referrals: Nica Hernández MD [Primary Care Provider, Family Practice] Patient Instructions: Dehydration (ED) Activity Restrictions/Additional Instructions: Hemoglobin level today was 8.8. Your white count was 5.89 and your platelet count was 224. Print Language: Emirati Coding Level of Care Code ED Voltage Inspector for Taty Bajwa
== END 2025-02-07 16:22 | disposition home or self-care (01) ==
PROVIDERS: Family Medicine; Emergency Provider Emergency Medicine; PCP Family Medicine
DX: R42 Dizziness and giddiness (principal); E86.0 Dehydration; Z79.4 Long term (current) use of insulin; Z87.891 Personal history of nicotine dependence; E11.9 Type 2 diabetes mellitus without complications
CPT/HCPCS: 36415; 80053; 85025; 85610; 93005; 99284; J7040

== ENCOUNTER → 2025-02-12 11:38 | Outpatient (BNVA) | payer OTHER, SELFPAY | PROVIDERS: PCP Family Medicine; Visit Provider Family Medicine | DX: Z86.73 Personal history of transient ischemic attack (TIA), and cerebral infarction without residual deficits (principal); R42 Dizziness and giddiness | CPT/HCPCS: 85018; 85610 ==

== ENCOUNTER → 2025-02-19 08:28 | Outpatient (BNVA) | payer OTHER, SELFPAY | PROVIDERS: PCP Family Medicine; Referring Provider Family Medicine; Visit Provider Family Medicine | DX: Z51.81 Encounter for therapeutic drug level monitoring (principal); Z79.01 Long term (current) use of anticoagulants | CPT/HCPCS: 85610 ==

== ENCOUNTER → 2025-02-28 08:18 | Outpatient (BNVA) | payer OTHER, SELFPAY | PROVIDERS: PCP Family Medicine; Visit Provider Family Medicine | DX: E11.9 Type 2 diabetes mellitus without complications (principal); Z51.81 Encounter for therapeutic drug level monitoring; Z79.01 Long term (current) use of anticoagulants | CPT/HCPCS: 80061; 83036; 85025; 85610 ==

== ENCOUNTER → 2025-03-07 08:16 | Outpatient (BNVA) | payer OTHER, SELFPAY | PROVIDERS: PCP Family Medicine; Referring Provider Family Medicine; Visit Provider Family Medicine | DX: Z86.718 Personal history of other venous thrombosis and embolism (principal) | CPT/HCPCS: 85610 ==

== ENCOUNTER → 2025-03-14 11:05 | Outpatient (BNVA) | payer OTHER, SELFPAY | PROVIDERS: PCP Family Medicine; Visit Provider Family Medicine | DX: E11.9 Type 2 diabetes mellitus without complications (principal); Z86.718 Personal history of other venous thrombosis and embolism | CPT/HCPCS: 80053; 85610 ==

== ENCOUNTER 2025-03-24 10:51 | Emergency (ER) | payer OTHER, SELFPAY ==
[2025-03-24] VITALS (7 sets, daily range): BP systolic 98–124; BP diastolic 52–63; PULSE 64–78; RESP 16; TEMP 37.4; O2SAT 92–97; BMI 47.5
--- OUTSIDE RECORDS SUMMARY | 2025-03-24 10:57 | XMS_ITS | Clinical Summary ---
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 Role Phone Unavailable Primary Care Provider Unavailabl e Allergies Active Allergy Reactions Criticality Noted Date Comments Fksuk-G-Ivxeuoozrfyon Hives,Nausea and Vomiting,Other (See Comments) High 12/12/2022 NO BEEF / DAIRY / PORK Chlorhexidine Gluconate Rash Low 12/12/2022 Hydroxyzine Other (See Comments) Medium 12/12/2022 Medication cross reaction Insulin Glargine Hives High 12/12/2022 Piperacillin-Tazobactam Rash Medium 12/12/2022 DRESS syndrome Shellfish Containing Products Shortness of Breath/Wheezing,Kane h,Nausea and Vomiting High 12/12/2022 Unclassified Drug Itching,Swelling Medium 12/12/2022 Plastic arm bands / plastics - patient mentioned Medications ciprofloxacin HCl (CIPRO) 500 mg tablet Take 500 mg by mouth daily. 3 Active furosemide (LASIX) 20 mg tablet Take 20 mg by mouth daily. 3 Active docusate sodium (COLACE) 100 mg capsule Take 1 Capsule by mouth 2 times daily. 3 Active insulin lispro (HumaLOG) 100 unit/mL pen syringe USE DIRECTED WITH MEALS CALL PHYSICIAN IF<60; 60-15=0 UNITS, 151-200, 1 UNIT; 201-250, 2 UNITS; 251-300 , 4 UNITS; 301-350, 6 UNITS; 351-400, 8 UNITS; CALL PHYSICIAN IF GREATER THAN 400 3 Active metFORMIN (GLUCOPHAGE) 500 mg tablet Take 500 mg by mouth 2 times daily with meals. 3 Active metoprolol succinate (TOPROL XL) 50 mg Extended Release 24 hour tablet Take 50 mg by mouth daily. 3 Active metroNIDAZOLE (FLAGYL) 500 mg tablet Take 500 mg by mouth 2 times daily. 3 Active pantoprazole (PROTONIX) 40 mg Tablet, Delayed Release (E.C.) Take 40 mg by mouth 2 times daily. 3 Active BD Ultra-Fine Mini Pen Needle 31 gauge x 12/09 Needle TEST DIRECTED 3 Active warfarin (COUMADIN) 1 mg tablet Take 3 mg by mouth. Currently taking 3 mg daily 3 Active Menthol-Zinc Oxide (CALMOSEPTINE) 0.44-20.6 % Ointment APPLY TOPICALLY TWICE DAILY 3 Active cholecalciferol , Vitamin D3, (VITAMIN D3) 25 mcg (1,000 unit) Capsule Take 2,000 Units by mouth daily. Active cyanocobalamin (VITAMIN B-12) 500 mcg tablet Take 1,000 mcg by mouth daily. Active diphenhydrAMINE (BENADRYL) 25 mg tablet Take 25 mg by mouth every 6 hours as needed for Allergies. Active Active Problems Problem Noted Date Diagnosed Date DM (diabetes mellitus), type 2 12/12/2022 GERD (gastroesophageal reflux disease) 3 Chronic anticoagulation/Coumadin 12/12/2022 Open wound of abdominal wall 12/12/2022 VTE (venous thromboembolism) , recurrent PE/DVT, provoked post op 12/12/2022 Closed fracture of left distal femur 12/12/2022 Social History Tobacco Use Types Packs/Day Years Used Date Smoking Tobacco: Former Cigarettes 1 25 1 10/11/1996 - 08/11/2022 Smokeless Tobacco: Never Tobacco Cessation:Counseling Given: Not Answered Alcohol Use Standard Drinks/Week Comments Never 0 (1 standard drink = 0.6 oz pur e alcohol) Feeling Safe Answer Date Recorded Are you in a relationship wi th someone who hurts you emotionally and/or physically? 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 Gender Identity Not on file Sexual Orientation Not on file Last Filed Vital Signs Vital Sign Reading Time Taken Comments Blood Pressure 121/85 12/13/2022 7:41 AM CDT Pulse 130 12/13/2022 7:41 AM CDT Temperature 35.9 C (96.6 F) 12/13/2022 7:41 AM CDT Respiratory Rate 20 12/13/2022 7:41 AM CDT Oxygen Saturation 95% 12/13/2022 7:41 AM CDT Inhaled Oxygen Concentration - - Weight 104.3 kg (230 lb) 12/13/2022 6:00 AM CDT Height 157.5 cm (5' 2 ) 12/12/2022 11:07 AM CDT Body Mass Index 42.07 12/12/2022 11:07 AM CDT Plan of Treatment Health Maintenance Due Date Last Done Comments DIABETES ANNUAL FOOT EXAM 1984 DIABETES ANNUAL RETINAL EXAM 1984 DIABETES MICROALBUMIN ANNUAL SCREEN 1984 LDL CHOLESTEROL ANNUAL 1984 DTAP/TDAP/TD VACCINES (1 - Tdap) 1985 HEPATITIS B VACCINES (1 of 3 - 19+ 3-dose series) 1985 HPV/Cotest (21-29) 1987 CERVICAL CANCER SCREENING 1996 HPV/Cotest (30-65) 1996 PAP SMEAR 1996 BREAST CANCER SCREENING 2006 COLORECTAL SCREENING 2011 Colorectal Cancer Screening 2011 FIT-DNA Q 3 years 2011 FIT/FOBT Q 1 year 2011 Flex Sig/CT Colonography Q 5 years 2011 ZOSTER VACCINE (1 of 2) 2016 INFLUENZA VACCINE (#1) 2024 DIABETES HBA1C Q 6 MONTHS 01/30/20252023, 04/29/2024, 08/18/2022 Procedures Procedure Name Priority Date/Time Associated Diagnosis Comments HEMOGLOBIN A1C Routine 08/18/2022 from Last 3 Months or Most Recently Relevant to Health Maintenance Results * HEMOGLOBIN A1C (08/18/2022) ABSTRACTED HGB A1C 9.7 Blood 08/18/2022 us Abstract Provider CHEMISTRY ORDERABLES Final Res ult from Last 3 Months or Most Recently Relevant to Health Maintenance Insurance [facility] Advance Directives For more information, please contact: [phone] * Default Full Code - Needs Discussion (Latest Code Status on File) Date Activated Date Inactivated Comments 12/12/2022 4:15 PM 12/13/2022 10:46 AM
--- NOTE | 2025-03-24 12:04 | CTR_ITS ---
PROCEDURE INFORMATION: Exam: CT Abdomen And Pelvis With Contrast Exam date and time: 03/24/2025 1:04 PM Age: 59 years old Clinical indication: Abdominal pain; Generalized; Prior surgery; Surgery date: 3-7 days post-operative; Surgery type: Left femur, gb, bile duct repair, repair of bowel injury, hepatic aneurysm with stent placed TECHNIQUE: Imaging protocol: Computed tomography of the abdomen and pelvis with contrast. Radiation optimization: All CT scans at this facility use at least one of these dose optimization techniques: automated exposure control; mA and/or kV adjustment per patient size (includes targeted exams where dose is matched to clinical indication); or iterative reconstruction. Contrast material: OMNIPAQUE 350; Contrast volume: 100 ml; Contrast route: INTRAVENOUS (IV); COMPARISON: CT abdomen pelvis w con* [id number] 07/29/2024 7:23 PM RADIATION DOSE METRICS: Total DLP (mGy-cm): 1225.19 FINDINGS: Liver: Normal. No mass. Gallbladder and biliary ducts: Status post cholecystectomy. Two percutaneous pigtail drains extend into the gallbladder fossa and left biliary system respectively. There is mild pneumobilia, decreased from previous. Persistent mild biliary dilatation without appreciable change. Pancreas: Normal. No ductal dilation. Spleen: Splenomegaly is again noted. Prior focal low-density in the spleen has now evolved into a small wedge-shaped defect, possibly old infarct. Adrenal glands: Normal. No mass. Kidneys and ureters: Normal. No hydronephrosis. Stomach and bowel: Unremarkable. No obstruction. No mucosal thickening. Appendix: No evidence of appendicitis. Intraperitoneal space: Unremarkable. No free air. No significant fluid collection. Vasculature: IVC filter is in place. Lymph nodes: 1 cm right external iliac node is again noted with fatty hilum. Urinary bladder: Unremarkable as visualized. Reproductive: Unremarkable as visualized. Bones/joints: Bilateral L5 pars defects with grade 1 anterolisthesis of L5 on S1. Left proximal femur ORIF. Soft tissues: There is a large ventral hernia containing small bowel loops and mesentery. Transverse dimension of the hernia defect 8.3 cm. Smaller rightward ventral hernia is seen more superiorly in the abdomen with minimal protrusion of small bowel into the hernia. CT/CT abdomen pelvis w con* [id number] IMPRESSION: 1. Percutaneous drains through the liver as described with decreased pneumobilia and persistent mild biliary dilatation. Decreased pneumobilia. 2. 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 3. Ventral hernias as described. COMMENTS: For patients with an IVC filter, recommend assessment for a management plan for the patient's IVC filter. If there is no established management plan, recommend referral to an interventional clinician on a nonemergent basis for evaluation.
--- NOTE | 2025-03-24 12:04 | XRR_ITS ---
PROCEDURE INFORMATION: Exam: XR Chest Exam date and time: 03/24/2025 12:31 PM Age: 59 years old Clinical indication: Shortness of breath; Pneumonia; Fever; Painful inspiration TECHNIQUE: Imaging protocol: Radiologic exam of the chest. Views: 1 view. COMPARISON: CT abdomen pelvis w con* [id number] 07/29/2024 7:23 PM FINDINGS: Lungs: Unremarkable. No consolidation. Pleural spaces: Unremarkable. No pleural effusion. No pneumothorax. Heart/Mediastinum: Borderline enlargement of the cardiac silhouette. Bones/joints: Unremarkable. XR/XR chest 1V portable [id number] IMPRESSION: No acute findings.
--- NOTE | 2025-03-24 12:06 | W.ED.FEVER ---
HPI - Fever General: Chief Complaint: Fever Stated Complaint: fever (5xday postop) Time Seen by Provider: 03/24/25 11:30 History of Present Illness: Chief complaint is fever. Patient states that she had her stent exchanged from her bile ducts on Tuesday at [facility]. She states that Tuesday night she started having fevers up to 101 and she also has had pain in one of the ducts in her right upper quadrant abdomen since the procedure. No vomiting. No headache runny nose sore throat or congestion. No cough or shortness of breath. No chest pain. She does have some urinary urgency. 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 No new pain in the abdomen except for right where the catheter comes out of her abdomen from one of the new catheter stents. Related Data Home Medications ?Medication ?Instructions ?Recorded ?Confirmed acetaminophen 325 mg tablet 325 mg PO QID PRN Pain, Mild 01/25/23 03/14/25 (Tylenol) clindamycin phosphate 1 % lotion See Rx Instructions .Route .COMPLEX 02/07/25 03/14/25 epinephrine 0.3 mg/0.3 mL See Rx Instructions .Route .COMPLEX 02/07/25 03/14/25 injection, auto-injector ferrous sulfate 325 mg (65 mg 325 mg PO DAILY 02/07/25 03/14/25 iron) tablet (FeroSul) gabapentin 600 mg tablet 300 mg PO BID 02/07/25 03/14/25 metoprolol tartrate 25 mg tablet 25 mg PO BID 02/07/25 03/14/25 mometasone 0.1 % topical ointment See Rx Instructions .Route .COMPLEX 02/07/25 03/14/25 sodium chloride 0.9 % (flush) See Rx Instructions .Route .COMPLEX 02/07/25 03/14/25 (Normal Saline Flush 0.9 % injection syringe) trospium 20 mg tablet 20 mg PO BID 02/07/25 03/14/25 Previous Rx's ?Medication ?Instructions ?Recorded off machine loader knee brace right #1 ea 07/29/23 left AFO brace #1 ea 01/31/24 warfarin 5 mg tablet 5 mg PO DAILY #30 tabs 04/12/24 naloxone 4 mg/actuation nasal 4 mg intranasal Q2M PRN opioid 05/29/24 spray (Narcan) overdose #2 ea cyclobenzaprine 10 mg tablet 10 mg PO TID 90 days #270 tabs 10/16/24 ondansetron 4 mg disintegrating 4 mg PO BID PRN nausea and 10/16/24 tablet vomiting #20 tabs pantoprazole 40 mg tablet,delayed 40 mg PO DAILY 90 days #90 tabs 10/16/24 release hydrocodone 10 mg-acetaminophen 1 tab PO Q8H PRN pain 7 days #21 11/27/24 325 mg tablet tabs insulin syringes (disposable) 1 mL #500 ea 11/27/24 warfarin 3 mg tablet 3 mg PO DAILY #30 tabs 12/10/24 warfarin 4 mg tablet 4 mg PO DAILY #30 tabs 12/10/24 folic acid 1 mg tablet 1 mg PO DAILY #30 tabs 01/01/25 pen needle, diabetic 33 gauge x #100 ea 02/13/2509/29 (Comfort EZ Pen Cresco) insulin glargine 100 unit/mL (3 20 unit (0.2 mL) SUBCUT DAILY #15 02/28/25 mL) subcutaneous pen (Lantus mL Solostar U-100 Insulin) metformin 500 mg tablet 500 mg PO BIDWMEAL 90 days #180 02/28/25 tabs sulfamethoxazole 800 1 tab PO BID 7 days #14 tabs 03/24/25 mg-trimethoprim 160 mg tablet (Bactrim DS) Allergies Allergy/AdvReac Type Severity Reaction Status Date / Time apixaban (From Eliquis) Allergy Severe ADR-Itching Verified 03/24/25 11:04 pork derived (porcine) Allergy Intermediate rastafarian Verified 03/24/25 11:04 reasons Alpha-Gal Allergy unknown Verified 03/24/25 11:04 ([id number],3-Gala piperacillin (From Zosyn) Allergy ALGY-Anaphy Verified 03/24/25 11:04 laxis tazobactam (From Zosyn) Allergy ALGY-Anaphy Verified 03/24/25 11:04 laxis shellfish derived AdvReac Intermediate ADR-Confusi Verified 03/24/25 11:04 on PFSH ED PFSH: Medical History Diabetes History of DVT (deep vein thrombosis) Presence of IVC filter Enterocutaneous fistula Biliary obstruction Allergy to alpha-gal No pertinent family history Surgical History History of orthopedic surgery Left femur fracture repair S/P aneurysm repair Hepatic aneurysm with stent placed History of abdominal surgery Bile duct repair, repair of bowel injury Hx of cholecystectomy Family History Father Hypertension Denies family history of Diabetes Clotting disorder Bleeding disorder Cancer Stroke Social History Smoking and tobacco/nicotine status: former use of tobacco/nicotine Alcohol intake: never Female Reproductive History: Para: 2 Spontaneous abortions: Yes (1) Physical Exam Narrative: EXAM NARRATIVE: Patient is alert in no acute distress but has pain with movement. She is breathing comfortably. Lung sounds are clear. Heart regular rhythm. Neck is supple. Normal external ENT exam. Normal conjunctiva. Moist mucous membranes. Extremities warm well-perfused. No calf tenderness. Speech is clear. Her abdomen is soft and she has no tenderness on the lower abdomen or left upper quadrant. She has 2 drains coming from the right upper quadrant and she has significant tenderness around the more medial drain. There are some mild erythema around the more lateral drain but the left drain appears well at the entrance site. There is some green drainage on the dressing from the more lateral drain. Patient has a open wound in the mid abdomen with some drainage but no significant erythema around it. Patient speech is clear she shows ability to reason. Course Vital Signs: Vital signs: Vital Signs Temperature 99.4 F 03/24/25 10:58 Pulse Rate 67 03/24/25 14:00 Respiratory Rate 16 03/24/25 12:53 Blood Pressure 113/52 03/24/25 14:00 Pulse Oximetry 92 03/24/25 14:00 Oxygen Delivery Me thod Room Air 03/24/25 14:00 MDM - Fever Medical Decision Making Patient very complicated with a long history of fistula from her colon to her abdomen with chronic mid abdominal wound. She also had erosion of a stent placed in her artery in her liver according to the who provides majority of the history. The stent eroded through her bile ducts and so she has had stents in her bile duct and drains. She just had the drains changed on Wednesday to smaller drains. She started having fevers the night of the surgery and worsening pain in the right upper quadrant she states just around the more medial catheter. Remainder of her abdomen is soft nontender. She does appear to be draining bile from the more lateral duct. She denies any shortness of breath or cough. Will get CT abdomen pelvis and CBC CMP lipase lactic urinalysis and chest x-ray. I ordered 500 cc normal saline IV fluid bolus and 4 mg morphine IV for pain and 4 mg Zofran IV for nausea. Chest x-ray negative for acute process per radiology. CT abdomen pelvis showed pneumobilia which is decreased and mild biliary dilation and splenomegaly and ventral hernias. Patient white count was not elevated. Hemoglobin is 8.10 however not significant change from where she has had hemoglobins. Alk phos not significant change from prior and total bilirubin lipase and transaminases are not elevated. I consulted with Dr. Wise attending for radiology at [facility]. They are very familiar with the patient and I discussed patient presenting fever pain symptoms exam history labs and CT. They recommend continued outpatient management. I discussed with patient who agrees as well. I advised limits of ED evaluation and signs symptoms of worsening or progression to watch and return for. Patient did have findings of urinary tract infection on urinalysis. She had some mild urinary symptoms. Will start her on Bactrim as limited options as she has allergy to penicillins, she states she has alpha gal and cannot take any capsules. I prescribed Bactrim and will give her a single tablet here. I advised limits of ED evaluation and broad differential and signs and symptoms of worsening to watch return for and close outpatient follow-up. Patient and expressed understanding and agreement with plan Lab Data 03/24/25 12:28 03/24/25 12:28 Radiology Impressions Abdomen/Pelvis CT 03/24/25 12:04 IMPRESSION: 1. Percutaneous drains through the liver as described with decreased pneumobilia and persistent mild biliary dilatation. Decreased pneumobilia. 2. 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 3. Ventral hernias as described. COMMENTS: For patients with an IVC filter, recommend assessment for a management plan for the patient's IVC filter. If there is no established management plan, recommend referral to an interventional clinician on a nonemergent basis for evaluation. Chest X-Ray 03/24/25 12:04 IMPRESSION: No acute findings. Laboratory Results WBC 5.66 10^3/uL (3.29-11.43) 03/24/25 12: RBC 3.19 10^6/uL (3.85-5.65) L 03/24/25 12:28 Hgb 8.10 g/dL (11.27-16.99) L 03/24/25 12:28 Hct 26.9 % (36-47) L 03/24/25 12:28 MCV 84.3 fl (85-98) L 03/24/25 12:28 MCH 25.4 pg (27-33) L 03/24/25 12:28 MCHC 30.1 g/dL (30-55) 03/24/25 12:28 RDW 16.8 % (12.1-15.1) H 03/24/25 12:28 Plt Count 191 10^3/cmm (157-399) 03/24/25 12:28 MPV 9.3 fL (7.4-10.4) 03/24/25 12:28 Neut % (Auto) 65.5 % 03/24/25 12:28 Lymph % (Auto) 22.3 % 03/24/25 12:28 Claiborne % (Auto) 9.4 % 03/24/25 12:28 Eos % (Auto) 1.9 % 03/24/25 12:28 Baso % (Auto) 0.4 % 03/24/25 12:28 Neut # (Auto) 3.71 10^3/uL (1.8-7.7) 03/24/25 12:28 Lymph # (Auto) 1.3 10^3/uL (0.8-4.8) 03/24/25 12:28 Claiborne # (Auto) 0.5 10^3/uL (0.2-0.9) 03/24/25 12:28 Eos # (Auto) 0.1 10^3/uL (0.0-0.8) 03/24/25 12:28 Baso # (Auto) 0.0 10^3/uL (0.0-0.1) 03/24/25 12:28 Nucleated RBC % (auto) 0 % 03/24/25 12:28 Nucleated RBCs # 0.0 /100WBC 03/24/25 12:28 Sodium 138 mmol/L (136-145) 03/24/25 12:28 Potassium 4.5 mmol/L (3.5-5.1) 03/24/25 12:28 Chloride 102 mmol/L (98-107) 03/24/25 12:28 Carbon Dioxide 23 mmol/L (22-29) 03/24/25 12:28 Anion Gap 17.5 (5-19) 03/24/25 12:28 BUN 19 mg/dL (6-20) 03/24/25 12:28 Creatinine 0.8 mg/dL (0.5-0.9) 03/24/25 12:28 GFR Calculation 73.7 mL/min (90-130) L 03/24/25 12:28 Glucose 115 mg/dL (65-115) 03/24/25 12:28 Calculated Osmolality 289 mOsm/kg (285-295) 03/24/25 12:28 Lactic Acid 1.0 mmol/L (0.5-2.2) 03/24/25 12:28 Calcium 8.7 mg/dL (8.5-10.5) 03/24/25 12:28 Total Bilirubin 0.9 mg/dL (0.15-1.2) 03/24/25 12:28 AST 21 U/L (0-32) 03/24/25 12:28 ALT 17 U/L (0-33) 03/24/25 12:28 Alkaline Phosphatase 222 U/L (35-105) H 03/24/25 12:28 Total Protein 7.9 g/dL (6.6-8.7) 03/24/25 12:28 Albumin 3.4 g/dL (3.5-5.2) L 03/24/25 12:28 Globulin 4.5 g/dL (1.3-4.6) 03/24/25 12:28 Lipase 39 U/L (13-60) 03/24/25 12:28 Urine Color Yellow (Yellow) 03/24/25 13:46 Urine Appearance Clear (CLEAR) 03/24/25 13:46 Urine pH 7.0 (5-7) 03/24/25 13:46 Ur Specific Sanders 1.031 (1.005-1.030) H 03/24/25 13:46 Urine Protein Trace (Negative) A 03/24/25 13:46 Urine Glucose (UA) Negative (Normal) 03/24/25 13:46 Urine Ketones Negative (Negative) 03/24/25 13:46 Urine Blood Negative (Negative) 03/24/25 13:46 Urine Nitrate Negative (Negative) 03/24/25 13:46 Urine Bilirubin Negative (Negative) 03/24/25 13:46 Urine Urobilinogen 1.0 mg/dL (Negative) 03/24/25 13:46 Ur Leukocyte Esterase 1+ (Negative) A 03/24/25 13:46 Urine RBC 0-2 /hpf (0-2) 03/24/25 13:46 Urine WBC 21-50 /hpf (0-5) H 03/24/25 13:46 Ur Squamous Epith Cells 0-5 /hpf (0-5) 03/24/25 13:46 Amorphous Sediment Not Reportable 03/24/25 13:46 Urine Bacteria None seen /hpf (NONE) 03/24/25 13:46 Hyaline Casts 0.81 /lpf 03/24/25 13:46 All radiology interpretation(s) finalized by discharge Discharge Plan Discharge Patient Disposition: Home Clinical Impression: Acute lower urinary tract infection Condition: Stable Prescriptions: New sulfamethoxazole-trimethoprim [Bactrim DS] 800-160 mg tablet 1 tab PO BID 7 Days Qty: 14 0RF No Action acetaminophen [Tylenol] 325 mg tablet 325 mg PO QID PRN (Reason: Pain, Mild) (DME) left AFO brace See Rx Instructions .Route .MEDSUPPLY Qty: 1 0RF Rx Instructions: As directed naloxone [Narcan] 4 mg/actuation spray,non-aerosol 4 mg intranasal Q2M PRN (Reason: opioid overdose) Qty: 2 0RF Rx Instructions: spray 1 dose into ONE nostril cyclobenzaprine 10 mg tablet 10 mg PO TID 90 Days Qty: 270 2RF pantoprazole 40 mg tablet,delayed release (DR/EC) 40 mg PO DAILY 90 Days Qty: 90 2RF ondansetron 4 mg tablet,disintegrating 4 mg PO BID PRN (Reason: nausea and vomiting) Qty: 20 0RF folic acid 1 mg tablet 1 mg PO DAILY Qty: 30 5RF insulin glargine [Lantus Solostar U-100 Insulin] 100 unit/mL (3 mL) insulin pen 20 unit SUBCUT DAILY Qty: 15 5RF metformin 500 mg tablet 500 mg PO BIDWMEAL 90 Days Qty: 180 1RF (DME) off machine loader knee brace right See Rx Instructions .Route .MEDSUPPLY Qty: 1 0RF Rx Instructions: As directed (DME) insulin syringes (disposable) 1 mL syringe See Rx Instructions .ROUTE .MEDSUPPLY Qty: 500 5RF Rx Instructions: As directed hydrocodone-acetaminophen 10-325 mg tablet 1 tab PO Q8H PRN (Reason: pain) 7 Days Qty: 21 0RF warfarin 3 mg tablet 3 mg PO DAILY Qty: 30 2RF Protocol: Dose Management Condition: Tuesday Dose/Route: 3 mg Instruction: 1 x 3 mg tablet Condition: Tuesday Dose/Route: 3 mg Instruction: 1 x 3 mg tablet Condition: Tuesday Dose/Route: 3 mg Instruction: 1 x 3 mg tablet Condition: Tuesday Dose/Route: 3 mg Instruction: 1 x 3 mg tablet Condition: Dose/Route: 3 mg Instruction: 1 x 3 mg tablet Condition: Tuesday Dose/Route: 3 mg Instruction: 1 x 3 mg tablet Condition: Tuesday Dose/Route: 3 mg Instruction: 1 x 3 mg tablet Protocol Text: Adjustment Start Date: 03/21/25 INR Value: 28.70 SECONDS INR Date: 03/14/25 Recheck Date: 03/28/25 warfarin 4 mg tablet 4 mg PO DAILY Qty: 30 2RF Protocol: Dose Management Condition: Tuesday Dose/Route: 3 mg Instruction: 1 x 3 mg tablet Condition: Tuesday Dose/Route: 3 mg Instruction: 1 x 3 mg tablet Condition: Tuesday Dose/Route: 3 mg Instruction: 1 x 3 mg tablet Condition: Tuesday Dose/Route: 3 mg Instruction: 1 x 3 mg tablet Condition: Dose/Route: 3 mg Instruction: 1 x 3 mg tablet Condition: Tuesday Dose/Route: 3 mg Instruction: 1 x 3 mg tablet Condition: Tuesday Dose/Route: 3 mg Instruction: 1 x 3 mg tablet Protocol Text: Adjustment Start Date: 03/21/25 INR Value: 28.70 SECONDS INR Date: 03/14/25 Recheck Date: 03/28/25 warfarin 5 mg tablet 5 mg PO DAILY Qty: 30 0RF Protocol: Dose Management Condition: Tuesday Dose/Route: 3 mg Instruction: 1 x 3 mg tablet Condition: Tuesday Dose/Route: 3 mg Instruction: 1 x 3 mg tablet Condition: Tuesday Dose/Route: 3 mg Instruction: 1 x 3 mg tablet Condition: Tuesday Dose/Route: 3 mg Instruction: 1 x 3 mg tablet Condition: Dose/Route: 3 mg Instruction: 1 x 3 mg tablet Condition: Tuesday Dose/Route: 3 mg Instruction: 1 x 3 mg tablet Condition: Tuesday Dose/Route: 3 mg Instruction: 1 x 3 mg tablet Protocol Text: Adjustment Start Date: 03/21/25 INR Value: 28.70 SECONDS INR Date: 03/14/25 Recheck Date: 03/28/25 (DME) pen needle, diabetic [Comfort EZ Pen Cresco] 33 gauge x 1/4 needle See Rx Instructions .ROUTE .MEDSUPPLY Qty: 100 2RF Rx Instructions: As directed ferrous sulfate [FeroSul] 325 mg (65 mg iron) tablet 325 mg PO DAILY mometasone 0.1 % ointment See Rx Instructions .ROUTE .COMPLEX Rx Instructions: APPLY OINTMENT TOPICALLY TO AFFECTED AREA ONCE DAILY NEEDED. epinephrine 0.3 mg/0.3 mL auto-injector See Rx Instructions .ROUTE .COMPLEX Rx Instructions: Use per package instructions in case of emergency. clindamycin phosphate 1 % lotion See Rx Instructions .ROUTE .COMPLEX Rx Instructions: APPLY TO THE AFFECTED AREA(S) ON face EVERY MORNING FOR acne. sodium chloride 0.9 % (flush) [Normal Saline Flush] Syringe See Rx Instructions .ROUTE .COMPLEX Rx Instructions: 20ML BY INTRACATHETER ROUTE EVERY TWELVE HOURS FOR 60 DAYS 10 ML (PER CATHETER) EVERY TWELVE HOURS. trospium 20 mg tablet 20 mg PO BID gabapentin 600 mg tablet 300 mg PO BID metoprolol tartrate 25 mg tablet 25 mg PO BID Discharge Orders: Discharge ED (Routine); Ordered 03/24/25 Ordered By: Steve Davila Referrals: Nica Hernández MD [Primary Care Provider, Family Practice] Patient Instructions: Opioid Safety, Pain Management, Patient Portal & Aniket Instructions Activity Restrictions/Additional Instructions: Make sure to drink plenty of fluid. Come back if sores in your mouth or allergic reaction of symptoms. Come back if concerning or worsening abdominal pain, difficulty breathing, concerning rash, increased weakness, getting worse instead of better, vomiting, persistent fever, any concerns. Follow-up with your doctor on your test results and for reassessment. Print Language: Indonesian Coding Level of Care Code ED Wind Turbine E[employer] for Taty Bajwa
[2025-03-24 12:44] LABS: Basophils % 0.4 %; Eosinophils # 0.1 10^3/uL (0.0-0.8); Eosinophils % 1.9 %; Hematocrit 26.9 % (36-47); Lymphocytes # 1.3 10^3/uL (0.8-4.8); Lymphocytes % 22.3 %; Mean Corpuscular HGB Conc 30.1 g/dL (30-55); Mean Corpuscular Hemoglobin 25.4 pg (27-33); Mean Corpuscular Volume 84.3 fl (85-98); Mean Platelet Volume 9.3 fL (7.4-10.4); Monocytes # 0.5 10^3/uL (0.2-0.9); Monocytes % 9.4 %; Neutrophils # 3.71 10^3/uL (1.8-7.7); Neutrophils % 65.5 %; Nucleated Red Blood Cells % 0 %; Platelet Count 191 10^3/cmm (157-399); Red Blood Count 3.19 10^6/uL (3.85-5.65); Red Cell Distribution Width 16.8 % (12.1-15.1); White Blood Count 5.66 10^3/uL (3.29-11.43)
[2025-03-24] MEDS: ondansetron 2 mg/ML SDV 2 mL 4 MG IVP (12:47)
[2025-03-24] MEDS: morphine 4 mg/mL SDV 1 mL IVP (12:53)
[2025-03-24] MEDS: sodium chloride 0.9% 500 ML IV (12:56)
[2025-03-24 12:58] LABS: Alanine Aminotransferase 17 U/L (0-33); Albumin Level 3.4 g/dL (3.5-5.2); Alkaline Phosphatase 222 U/L (35-105); Anion Gap 17.5 (5-19); Aspartate Amino Transferase 21 U/L (0-32); Blood Urea Nitrogen 19 mg/dL (6-20); Calcium 8.7 mg/dL (8.5-10.5); Carbon Dioxide 23 mmol/L (22-29); Chloride 102 mmol/L (98-107); Globulin 4.5 g/dL (1.3-4.6); Glomerular Filtration Rate 73.7 mL/min (90-130); Glucose 115 mg/dL (65-115); Lipase 39 U/L (13-60); Osmolality Calculated 289 mOsm/kg (285-295); Potassium 4.5 mmol/L (3.5-5.1); Sodium 138 mmol/L (136-145); Total Bilirubin 0.9 mg/dL (0.15-1.2); Total Protein 7.9 g/dL (6.6-8.7)
[2025-03-24] MEDS: iohexol 350 mg/mL 500 mL Btl (per mL) IV (13:08)
[2025-03-24 14:10] LABS: Bilirubin Urine Negative (Negative); Blood Urine Negative (Negative); Glucose Urine UA Negative (Normal); Ketones Urine Negative (Negative); Leukocyte Esterase Urine 1+ (Negative); Nitrate Urine Negative (Negative); Protein Urine Trace (Negative); Urine Appearance Clear (CLEAR); Urine Color Yellow (Yellow)
[2025-03-24 14:13] LABS: Add Urine Microscopic? YES; Bacteria Urine None Seen /hpf; Hyaline Casts Urine 0.81 /lpf; RBC Urine 0-2 /hpf (0-2); Squamous Epithelial Cell Urine 0-5 /hpf (0-5); WBC Urine 21-50 /hpf (0-5)
[2025-03-24 14:27] LABS: Add Urine Culture? Yes; Specific Gravity, Urine 1.031 (1.005-1.030)
[2025-03-24] MEDS: sulfamethoxazole-trimeth DS 160-800 mg Tablet 1 TAB PO (15:18)
== END 2025-03-24 15:25 | disposition home or self-care (01) ==
PROVIDERS: Emergency Provider Emergency Medicine; PCP Family Medicine
DX: N39.0 Urinary tract infection, site not specified (principal); Z79.01 Long term (current) use of anticoagulants; Z87.891 Personal history of nicotine dependence
CPT/HCPCS: 36415; 71045; 74177; 80053; 81001; 83605; 83690; 85025; 87040; 87086; 96361; 96374; 96375; 99285; J2270; J2405; J7040; J9999

== ENCOUNTER → 2025-03-25 15:42 | Outpatient (BNVA) | payer OTHER, SELFPAY | PROVIDERS: PCP Family Medicine; Visit Provider Family Medicine | DX: I72.8 Aneurysm of other specified arteries (principal); Z51.81 Encounter for therapeutic drug level monitoring; Z79.01 Long term (current) use of anticoagulants | CPT/HCPCS: 85610 ==

== ENCOUNTER → 2025-03-28 08:27 | Outpatient (BNVA) | payer OTHER, SELFPAY | PROVIDERS: PCP Family Medicine; Visit Provider Family Medicine | DX: Z86.718 Personal history of other venous thrombosis and embolism (principal); E11.9 Type 2 diabetes mellitus without complications; N30.00 Acute cystitis without hematuria; T50.905A Adverse effect of unspecified drugs, medicaments and biological substances, initial encounter; I72.8 Aneurysm of other specified arteries | CPT/HCPCS: 85610 ==

== ENCOUNTER → 2025-04-23 08:31 | Outpatient (BNVA) | payer OTHER, SELFPAY | PROVIDERS: PCP Family Medicine; Visit Provider Family Medicine | DX: K83.8 Other specified diseases of biliary tract (principal); S36.13XD Injury of bile duct, subsequent encounter; X58.XXXD Exposure to other specified factors, subsequent encounter | CPT/HCPCS: 80053 ==

== ENCOUNTER → 2025-05-02 08:43 | Outpatient (BNVA) | payer OTHER, SELFPAY | PROVIDERS: PCP Family Medicine; Visit Provider Family Medicine | DX: E11.9 Type 2 diabetes mellitus without complications (principal); K83.8 Other specified diseases of biliary tract | CPT/HCPCS: 80053; 83036 ==

== ENCOUNTER → 2025-05-09 09:10 | Outpatient (BNVA) | payer OTHER, SELFPAY | PROVIDERS: PCP Family Medicine; Visit Provider Family Medicine | DX: K83.9 Disease of biliary tract, unspecified (principal) | CPT/HCPCS: 80053 ==

== ENCOUNTER → 2025-05-15 14:53 | Outpatient (BNVA) | payer OTHER, SELFPAY | PROVIDERS: PCP Family Medicine; Referring Provider Family Medicine; Visit Provider Family Medicine | DX: K63.2 Fistula of intestine (principal) | CPT/HCPCS: 80053 ==

== ENCOUNTER → 2025-05-20 16:20 | Outpatient (BNVA) | payer OTHER, SELFPAY | PROVIDERS: PCP Family Medicine; Visit Provider Family Medicine | DX: K83.9 Disease of biliary tract, unspecified (principal) | CPT/HCPCS: 80053 ==

== ENCOUNTER → 2025-05-30 08:26 | Outpatient (BNVA) | payer OTHER, SELFPAY | PROVIDERS: PCP Family Medicine; Visit Provider Family Medicine | DX: D69.9 Hemorrhagic condition, unspecified (principal); I72.8 Aneurysm of other specified arteries; K83.8 Other specified diseases of biliary tract | CPT/HCPCS: 80053; 85025; 85610 ==

== ENCOUNTER → 2025-06-13 08:57 | Outpatient (BNVA) | payer OTHER, SELFPAY | PROVIDERS: PCP Family Medicine; Referring Provider Family Medicine; Visit Provider Family Medicine | DX: K83.8 Other specified diseases of biliary tract (principal) | CPT/HCPCS: 80053 ==

== ENCOUNTER → 2025-06-26 10:29 | Outpatient (BNVA) | payer OTHER, SELFPAY | PROVIDERS: PCP Family Medicine; Visit Provider Nurse Practitioner | DX: K83.1 Obstruction of bile duct (principal) | CPT/HCPCS: 85025 ==

== ENCOUNTER → 2025-07-12 09:48 | Outpatient (BNVA) | payer OTHER, SELFPAY | PROVIDERS: PCP Family Medicine; Referring Provider Nurse Practitioner; Visit Provider Nurse Practitioner | DX: K83.8 Other specified diseases of biliary tract (principal) | CPT/HCPCS: 80053; 85025 ==

== ENCOUNTER → 2025-07-26 09:34 | Outpatient (BNVA) | payer OTHER, SELFPAY | PROVIDERS: PCP Family Medicine; Visit Provider Nurse Practitioner | DX: Z01.89 Encounter for other specified special examinations (principal) | CPT/HCPCS: 80053 ==

== ENCOUNTER → 2025-08-09 09:15 | Outpatient (BNVA) | payer OTHER, SELFPAY | PROVIDERS: PCP Family Medicine; Visit Provider Family Medicine | DX: K83.8 Other specified diseases of biliary tract (principal); S36.13XA Injury of bile duct, initial encounter; X58.XXXA Exposure to other specified factors, initial encounter | CPT/HCPCS: 80053 ==

== ENCOUNTER → 2025-08-21 10:02 | Outpatient (BNVA) | payer OTHER, SELFPAY | PROVIDERS: PCP Family Medicine; Visit Provider Family Medicine | DX: K83.1 Obstruction of bile duct (principal) | CPT/HCPCS: 80053 ==

== ENCOUNTER → 2025-09-02 09:52 | Outpatient (BNVA) | payer OTHER, SELFPAY | PROVIDERS: PCP Family Medicine; Visit Provider Family Medicine | DX: R35.0 Frequency of micturition (principal); B34.9 Viral infection, unspecified; T85.590 Other mechanical complication of bile duct prosthesis | CPT/HCPCS: 80053; 81000; 85025; 87086 ==